=== PATIENT | male | born 1980 | race Hispanic/Latino ===

== ENCOUNTER 2016-08-05 23:05 | Observation (INO) | payer SELFPAY ==
[2016-08-06 00:28] LABS: BASO # 0.1 K/uL (0.0-0.2); BASO % 0.7 % (0.0-2.0); EOS # 0.2 K/uL (0.0-0.7); EOS % 2.8 % (0.0-4.0); HEMATOCRIT 42.4 % (35.0-51.0); LYMPH % 24.5 % (20.0-40.0); MEAN CELL VOLUME 85.5 fL (80.0-94.0); MEAN CORPUSCULAR HEMOGLOBIN 28.5 pg (27.0-31.0); MEAN CORPUSCULAR HGB CONC 33.3 g/dL (33.0-37.0); MEAN PLATELET VOLUME 9.1 fL (7.2-11.7); MONO # 0.8 K/uL (0.0-0.8); MONO % 9.7 % (0.0-10.0); WHITE BLOOD COUNT 8.2 K/uL (4.8-10.8)
[2016-08-06 00:38] LABS: CHLORIDE 103 mmol/L (98-107); SODIUM 139 mmol/L (132-148)
[2016-08-06 00:39] LABS: POTASSIUM 3.6 mmol/L (3.6-5.2)
[2016-08-06 00:41] LABS: ALKALINE PHOSPHATASE 69 U/L (38-126); AST/SGOT 30 U/L (17-59); BILIRUBIN,TOTAL 0.7 mg/dL (0.2-1.3); BLOOD UREA NITROGEN 11 mg/dL (9-20); CARBON DIOXIDE 25 mmol/L (22-30); GFR AFRICAN-AMERICAN > 60; TOTAL PROTEIN 7.5 g/dL (6.3-8.3)
[2016-08-06 00:42] LABS: ALCOHOL SERUM < 10 mg/dl (0-10); ALT/SGPT 42 U/L (21-72); CALCIUM 8.6 mg/dl (8.6-10.4); GLUCOSE,RANDOM 101 mg/dL (75-110)
[2016-08-06 00:44] LABS: URINE BILIRUBIN NEGATIVE (NEGATIVE); URINE BLOOD NEGATIVE (NEGATIVE); URINE COLOR Straw (YELLOW); URINE GLUCOSE (UA) NORMAL (Normal); URINE KETONE NEGATIVE (NEGATIVE); URINE LEUKOCYTE ESTERASE NEG Leu/uL (Negative); URINE PROTEIN NEGATIVE (NEGATIVE); URINE UROBILINOGEN NORMAL mg/dL (0.2-1.0); WBC URINE < 1 /hpf (0-5)
[2016-08-06] MEDS ORDERED: Sodium Chloride 0.9% 1,000 ML IV ONE ×2 (01:29→03:51)
[2016-08-06] MEDS ORDERED: Sodium Chloride 0.9% 1,000 ML ONE ×2 (03:02→04:13)
--- NOTE | 2016-08-06 04:35 | C.PDOC ---
History Of Present Illness Pt states the he was prescribed Seroquel and he fill the prescription today. He states he then took 9 pills "just to see how it feels like". Time Seen by Provider: 08/06/16 00:03 Chief Complaint (Nursing): Substance Abuse History Per: Patient Onset/Duration Of Symptoms: Hrs (3) Current Symptoms Are (Timing): Still Present Ingestion Of Substance: 9 pills of Seroquel 50mg. Modifying Factor(s): None Severity: Moderate Associated Symptoms: denies: Suicidal Thoughts, Suicidal Plan Additional History Per: Prior Records Past Medical History Reviewed: Historical Data, Nursing Documentation, Vital Signs Vital Signs: Last Vital Signs Temp 97.7 F 08/06/16 00:08 Pulse 68 08/06/16 04:50 Resp 18 08/06/16 04:50 BP 92/42 L 08/06/16 04:50 Pulse Ox 96 08/06/16 06:21 - Medical History PMH: Asthma Family History: States: Unknown Family Hx - Social History Hx Alcohol Use: Yes Hx Substance Use: Yes - Immunization History Hx Tetanus Toxoid Vaccination: No Hx Influenza Vaccination: No Hx Pneumococcal Vaccination: No Review Of Systems Except As Marked, All Systems Reviewed And Found Negative. Constitutional: Negative for: Fever Cardiovascular: Negative for: Chest Pain Respiratory: Negative for: Shortness of Breath Gastrointestinal: Negative for: Vomiting, Abdominal Pain Musculoskeletal: Negative for: Neck Pain Skin: Negative for: Rash Neurological: Negative for: Weakness, Numbness, Seizures Physical Exam - Physical Exam Appears: Non-toxic, Other (Appears drowsy) Skin: Normal Color, Warm, Dry, No Rash Head: Atraumatic, Normacephalic Eye(s): bilateral: PERRL, EOMI Neck: Normal ROM, Supple Cardiovascular: Rhythm Regular Respiratory: Normal Breath Sounds, No Accessory Muscle Use Gastrointestinal/Abdominal: Soft, No Tenderness Back: No CVA Tenderness Extremity: Normal ROM Neurological/Psych: Oriented x3, Normal Motor, Normal Sensation, Slow To Respond With Command ED Course And Treatment - Laboratory Results Result Diagrams: 08/06/16 00:25 08/06/16 00:25 Lab Interpretation: No Acute Changes ECG: Interpreted By Me, Viewed By Me ECG Rhythm: Sinus Rhythm ECG Interpretation: No Acute Changes Rate From EC O2 Sat by Pulse Oximetry: 96 Pulse Ox Interpretation: Normal Progress Note: Pt was d/w Belinda Rubio at [facility]. She recommended observing pt for 8 hours and supportive care. ED EKG Interpretation - Interpreted by ED Physician Interpreted by ED Physician: Yes - TIME Time: 06:13 - Type Type: 12 lead EKG Comparison: Similar to previous EKG - Rhythm Rhythm: Normal sinus - Rate BPM: 64 - Conduction Conduction: Normal conduction - Impression Impression:: Normal ED OBSERVATION Date of observation admission: 08/06/16 Time of observation admission: 00:30 - Observation admission statement Patient is being placed in observation because:: Seroquel overdose - Goals of Observation Goals of observation are:: Medical clearance Disposition Counseled Patient/Family Regarding: Studies Performed, Diagnosis - Disposition Disposition Time: 07:00 Condition: STABLE - Clinical Impression Clinical Impression: Medication overdose Physician Patient Turnover Patient Signed Over To: Nhi Lance Handoff 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
[2016-08-06 09:06] VITALS: O2SAT 98
[2016-08-06 10:29] VITALS: BP 112/69; PULSE 88; RESP 17; TEMP 98.5
== END 2016-08-06 10:14 | disposition home or self-care (01) ==
LOC: C.ER 23:05 → C.9OBSV 08-06 04:42
PROVIDERS: ADMIT Emergency Medicine; ATTEND Emergency Medicine
DX: T43.591A Poisoning by other antipsychotics and neuroleptics, accidental (unintentional), initial encounter (principal); J45.909 Unspecified asthma, uncomplicated; Y92.009 Unspecified place in unspecified non-institutional (private) residence as the place of occurrence of the external cause
CPT/HCPCS: 80053; 81001; 83735; 85025; 93005; 96360; 99285; G0378; G0480; J7040

== ENCOUNTER 2016-08-15 19:43 | Emergency (ER) | payer OTHER ==
[2016-08-15 21:12] VITALS: BP 103/66; PULSE 99; RESP 18; TEMP 98.2; O2SAT 96
[2016-08-15] MEDS ORDERED: Tetanus/Diphtheria Toxoids 0.5 ml Syringe IM ONE ×2 (22:00→22:03)
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
== END 2016-08-15 22:42 | disposition home or self-care (01) ==
LOC: C.ER 19:43
DX: S61.011A Laceration without foreign body of right thumb without damage to nail, initial encounter (principal); W45.8XXA Other foreign body or object entering through skin, initial encounter

== ENCOUNTER 2017-02-03 18:18 | Emergency (ER) | payer SELFPAY ==
[2017-02-03 18:37] VITALS: BP 119/86; PULSE 113; RESP 20; TEMP 98.7; O2SAT 96
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
== END 2017-02-03 21:29 | disposition home or self-care (01) ==
LOC: C.ER 18:18
DX: S02.2XXA Fracture of nasal bones, initial encounter for closed fracture (principal); H11.32 Conjunctival hemorrhage, left eye; Y04.0XXA Assault by unarmed brawl or fight, initial encounter

== ENCOUNTER 2017-05-05 19:08 | Emergency (ER) | payer SELFPAY ==
[2017-05-05 19:15] VITALS: BP 123/90; PULSE 110; RESP 16; TEMP 98.4; O2SAT 97
[2017-05-05 20:09] LABS: BASO # 0.1 K/uL (0.0-0.2); BASO % 0.8 % (0.0-2.0); EOS # 0.2 K/uL (0.0-0.7); EOS % 2.2 % (0.0-4.0); HEMATOCRIT 41.2 % (35.0-51.0); LYMPH # 1.5 K/uL (1.0-4.3); LYMPH % 18.5 % (20.0-40.0); MEAN CELL VOLUME 90.1 fL (80.0-94.0); MEAN CORPUSCULAR HEMOGLOBIN 30.6 pg (27.0-31.0); MEAN PLATELET VOLUME 8.8 fL (7.2-11.7); MONO % 12.8 % (0.0-10.0); NRBC % 0.1 % (0.0-2.0); RED CELL DISTRIBUTION WIDTH 13.7 % (11.5-14.5)
[2017-05-05 20:13] LABS: RBC URINE 2 /hpf (0-3); URINE BILIRUBIN NEGATIVE (NEGATIVE); URINE BLOOD NEGATIVE (NEGATIVE); URINE COLOR Amber (YELLOW); URINE GLUCOSE (UA) NORMAL (Normal); URINE KETONE TRACE mg/dL (NEGATIVE); URINE LEUKOCYTE ESTERASE 1+ Leu/uL (Negative); URINE PROTEIN 2+ mg/dL (NEGATIVE); WBC URINE 3 /hpf (0-5)
--- NOTE | 2017-05-05 20:21 | C.PDOC ---
History Of Present Illness Patient is a 36 y/o male, with a PMHx of alcoholism, who presents to the ED prescreened for alcohol detox. Patient admits to 5 beers per day and notes mild diffuse abdominal pain. Admits to decreased oral intake; denies vomiting, diarrhea, or bloody stool. No other physical complaints at this time. Time Seen by Provider: 05/05/17 19:21 Chief Complaint (Nursing): Substance Abuse History Per: Patient History/Exam Limitations: no limitations Current Symptoms Are (Timing): Still Present Modifying Factor(s): Alcohol Associated Symptoms: Other (mild diffuse abdominal pain) Recent travel outside of the [place]: No Past Medical History Reviewed: Historical Data, Nursing Documentation, Vital Signs Vital Signs: Last Vital Signs Temp 98.4 F 05/05/17 19:11 Pulse 110 H 05/05/17 19:11 Resp 16 05/05/17 19:11 BP 123/90 05/05/17 19:11 Pulse Ox 97 05/05/17 20:33 - Medical History PMH: Asthma, Bipolar Disorder, Schizophrenia, Seizures (ETOH related) Denies: Diabetes, Hepatitis, HIV, HTN, Chronic Kidney Disease, Sexually Transmitted Disease Surgical History: No Surg Hx Family History: States: Unknown Family Hx - Social History Hx Alcohol Use: Yes (5 beers per day ) Hx Substance Use: No - Immunization History Hx Tetanus Toxoid Vaccination: No Hx Influenza Vaccination: No Hx Pneumococcal Vaccination: No Review Of Systems Gastrointestinal: Positive for: Abdominal Pain (mild, diffuse). Negative for: Vomiting, Diarrhea, Hematochezia Physical Exam - Physical Exam Appears: Well, Non-toxic, No Acute Distress Skin: Normal Color, Warm, Dry Head: Atraumatic, Normacephalic Oral Mucosa: Moist Chest: Symmetrical Cardiovascular: Rhythm Regular, No Murmur Respiratory: Normal Breath Sounds, No Rales, No Rhonchi, No Wheezing Gastrointestinal/Abdominal: Soft, No Tenderness, Other (mild diffuse abdominal pain to palpation) Neurological/Psych: Oriented x3, Normal Speech, Normal Cognition ED Course And Treatment - Laboratory Results Result Diagrams: 05/05/17 20:04 05/05/17 20:04 O2 Sat by Pulse Oximetry: 97 (room air) Pulse Ox Interpretation: Normal Progress Note: Blood work ordered. Disposition - Disposition Disposition: ELOPEMENT - ER ONLY Disposition Time: 20:55 Condition: STABLE Forms: [employer] (Belgian) - Clinical Impression Clinical Impression: Substance abuse, Alcohol abuse - Scribe Statement The provider has reviewed the documentation as recorded by the Scribe Zakiya Madison All medical record entries made by the Scribe were at my direction and personally dictated by me. I have reviewed the chart and agree that the record accurately reflects my personal performance of the history, physical exam, medical decision making, and the department course for this patient. I have also personally directed, reviewed, and agree with the discharge instructions and disposition.
[2017-05-05 20:23] LABS: ALB/GLOB RATIO 1.3 (1.0-2.1); ALKALINE PHOSPHATASE 152 U/L (38-126); ALT/SGPT 288 U/L (21-72); AST/SGOT 414 U/L (17-59); BILIRUBIN,TOTAL 0.8 mg/dL (0.2-1.3); BLOOD UREA NITROGEN 12 mg/dL (9-20); CARBON DIOXIDE 22 mmol/L (22-30); CHLORIDE 104 mmol/L (98-107); GFR AFRICAN-AMERICAN > 60; GLUCOSE,RANDOM 91 mg/dL (75-110); POTASSIUM 3.5 mmol/L (3.6-5.2); SODIUM 139 mmol/L (132-148); TOTAL PROTEIN 7.1 g/dL (6.3-8.3)
[2017-05-05 20:45] LABS: ALCOHOL SERUM 382 mg/dl (0-10)
== END 2017-05-05 21:03 | disposition left against medical advice (07) ==
LOC: C.ER 19:08
DX: F10.10 Alcohol abuse, uncomplicated (principal); F19.10 Other psychoactive substance abuse, uncomplicated
CPT/HCPCS: 80053; 81001; 85025; 99283; G0480

== ENCOUNTER 2017-05-10 12:45 | Emergency (ER) | payer SELFPAY ==
[2017-05-10 12:48] VITALS: BMI 28.3
[2017-05-10 12:49] VITALS: PULSE 84; RESP 18; TEMP 98.6
[2017-05-10] MEDS ORDERED: Bacitracin 500 Units/gm Oint Foilpak UD TOP ONE (13:45)
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
[2017-05-10] MEDS ORDERED: Bacitracin 500 Units/gm Oint Foilpak UD ONE (13:54)
[2017-05-10 14:03] VITALS: BP 126/92
[2017-05-10 15:31] VITALS: O2SAT 96
== END 2017-05-10 14:03 | disposition home or self-care (01) ==
LOC: C.ER 12:45
DX: S00.81XA Abrasion of other part of head, initial encounter (principal); Y04.0XXA Assault by unarmed brawl or fight, initial encounter; Z23 Encounter for immunization

== ENCOUNTER 2017-05-22 18:56 | Inpatient (IN) | payer MEDICAID, OTHER ==
[2017-05-22 18:57] VITALS: BMI 28.3
[2017-05-22] MEDS ORDERED: Sodium Chloride 0.9% 1,000 ML IV ONE ×2 (19:48→21:36)
[2017-05-22 20:27] LABS: BASO % 0.2 % (0.0-2.0); EOS % 0.1 % (0.0-4.0); LYMPH # 0.2 K/uL (1.0-4.3); LYMPH % 1.5 % (20.0-40.0); MEAN CELL VOLUME 89.5 fL (80.0-94.0); MEAN CORPUSCULAR HEMOGLOBIN 30.6 pg (27.0-31.0); MEAN CORPUSCULAR HGB CONC 34.2 g/dL (33.0-37.0); MEAN PLATELET VOLUME 9.3 fL (7.2-11.7); MONO # 0.6 K/uL (0.0-0.8); MONO % 5.6 % (0.0-10.0); NEUT # 10.2 K/uL (1.8-7.0); NEUT % 92.6 % (50.0-75.0); NRBC % 0.1 % (0.0-2.0); RED CELL DISTRIBUTION WIDTH 14.1 % (11.5-14.5)
[2017-05-22 20:36] LABS: HEMOGLOBIN 16.2 g/dL (12.0-18.0)
[2017-05-22] MEDS ORDERED: Morphine 4 MG/ML VIAL ONE (20:36)
[2017-05-22 20:37] LABS: PLATELET COUNT 92 K/uL (130-400)
[2017-05-22 20:42] LABS: SQUAMOUS EPITHIAL 1 /hpf (0-5); URINE BACTERIA OCC (<OCC); URINE BILIRUBIN 2+ (NEGATIVE); URINE BLOOD NEGATIVE (NEGATIVE); URINE CLARITY Clear (Clear); URINE COLOR Amber (YELLOW); URINE GLUCOSE (UA) NORMAL (Normal); URINE LEUKOCYTE ESTERASE TRACE Leu/uL (Negative); URINE NITRATE NEGATIVE (NEGATIVE); URINE PROTEIN 3+ mg/dL (NEGATIVE)
[2017-05-22 20:45] LABS: BARBITURATES, UR NEGATIVE (NEGATIVE); BENZODIAZEPINES, UR NEGATIVE (NEGATIVE); OPIATES, UR NEGATIVE (NEGATIVE); PHENCYCLIDINE, UR NEGATIVE (NEGATIVE)
[2017-05-22 20:48] LABS: EOSINOPHIL 1 % (0-4); LYMPHOCYTE 1 % (20-40); MONOCYTE 2 % (0-10); NEUTROPHIL 96 % (50-75); PLATELET ESTIMATE DECREASED (NORMAL); TOTAL CELLS COUNTED 100
[2017-05-22 20:55] LABS: ALB/GLOB RATIO 0.9 (1.0-2.1); ALBUMIN 4.3 g/dL (3.5-5.0); ALT/SGPT 178 U/L (21-72); AST/SGOT 202 U/L (17-59); BLOOD UREA NITROGEN 13 mg/dL (9-20); CALCIUM 8.8 mg/dl (8.6-10.4); GFR AFRICAN-AMERICAN > 60; GFR NON-AFRICAN AMERICAN > 60; LIPASE 193 U/L (23-300)
--- NOTE | 2017-05-22 21:06 | C.PDOC ---
History Of Present Illness Patient is a 36 y/o male, with a Hx of Cystic Fibrosis, who presents to the ED with a complaint of constant, worsening abdominal pain associated with nausea and bilious vomiting since earlier today. Patient reports vomiting 20 times today. He reports a feeling a loss of appetite, and multiple bowel movements of loose stool. Patient reports he is a heavy drinker -at minimum a pint of vodkha daily. Last drink being yesterday. Denies any surgeries, medications, allergies , tobacco or drug use. No other physical complaints at this time. Time Seen by Provider: 05/22/17 19:19 Chief Complaint (Nursing): Abdominal Pain History Per: Patient History/Exam Limitations: no limitations Onset/Duration Of Symptoms: Hrs (earlier today), Persistent, Worse Since Current Symptoms Are (Timing): Still Present Location Of Pain/Discomfort: Diffuse Associated Symptoms: Nausea, Vomiting (bilious, 50x), Diarrhea, Loss Of Appetite Last Bowel Movement: Today (mutiple) Recent travel outside of the [place]: No Past Medical History Reviewed: Historical Data, Nursing Documentation, Vital Signs Vital Signs: Last Vital Signs Temp 100 F H 05/22/17 21:00 Pulse 104 H 05/23/17 01:57 Resp 20 05/23/17 01:57 BP 117/69 05/23/17 01:57 Pulse Ox 97 05/23/17 01:57 - Medical History PMH: Asthma, Bipolar Disorder, Schizophrenia, Seizures (ETOH related) Denies: Diabetes, Hepatitis, HIV, HTN, Chronic Kidney Disease, Sexually Transmitted Disease Other PMH: CF Surgical History: No Surg Hx Family History: States: Unknown Family Hx - Social History Hx Tobacco Use: No Hx Alcohol Use: Yes (5 beers per day ) Hx Substance Use: No (FORMER HEROIN USER) - Immunization History Hx Tetanus Toxoid Vaccination: Yes Hx Influenza Vaccination: No Hx Pneumococcal Vaccination: No Review Of Systems Constitutional: Negative for: Fever, Chills Eyes: Negative for: Pain ENT: Negative for: Ear Pain, Nose Congestion, Mouth Pain Cardiovascular: Negative for: Chest Pain, Palpitations, Orthopnea, Paroxysmal Noc. Dyspnea, Edema Gastrointestinal: Positive for: Nausea, Vomiting, Abdominal Pain, Diarrhea. Negative for: Constipation Genitourinary: Negative for: Dysuria Musculoskeletal: Negative for: Neck Pain Neurological: Negative for: Weakness Psych: Negative for: Anxiety Physical Exam - Physical Exam Appears: Non-toxic, In Acute Distress (moderate), Other (cold, clammy) Skin: Normal Color, Warm, Dry Head: Atraumatic, Normacephalic Eye(s): bilateral: Normal Inspection Ear(s): Bilateral: Normal Oral Mucosa: Moist Tongue: Normal Appearing, Other (fasiculations) Lips: Normal Appearing Teeth: Normal Dentition Neck: Normal Chest: Symmetrical Cardiovascular: Rhythm Regular, No Murmur Respiratory: Normal Breath Sounds, No Rales, No Rhonchi, No Wheezing Gastrointestinal/Abdominal: Soft, No Tenderness Back: Normal Inspection Extremity: Other (bilateral hand tremors consitent with alcohol withdrawal) Extremity: Bilateral: Atraumatic Neurological/Psych: Oriented x3 ED Course And Treatment - Laboratory Results Result Diagrams: 05/22/17 20:22 05/22/17 20:22 ECG: Interpreted By Me, Viewed By Me ECG Rhythm: Sinus Tachycardia Interpretation Of ECG: IN 116. QRS 72. QT 324. QTC 469. no ischemic changes Rate From EC (bpm) O2 Sat by Pulse Oximetry: 100 - Radiology CXR: Interpreted by Me, Viewed By Me CXR Interpretation: Yes: No Acute Disease - CT Scan/US A/P Other Rad Studies (CT/US): Interpreted By Me, Read By Radiologist CT/US Interpretation: CT Scan. . . ABD PELVIS IV CONTRAST ONLY Exam Date: 05/22/17. . This imaging exam was performed at [facility] EXAM: CT Abdomen and Pelvis With Intravenous Contrast. . EXAM DATE/TIME: 05/22/2017 10:02 PM. . CLINICAL HISTORY: 36 years old, male; Pain; Abdominal pain; Localized; Left lower quadrant. (llq); Additional info: Abd pain. . TECHNIQUE: Axial computed tomography images of the abdomen and pelvis with intravenous. contrast. All CT scans at this facility use one or more dose reduction. techniques, viz.: automated exposure control; ma/kV adjustment per patient size. (including targeted exams where dose is matched to indication; i.e. head); or. iterative reconstruction technique. Coronal and sagittal reformatted images were created and reviewed. . CONTRAST: 100 mL of omnipaque 300 administered intravenously. . COMPARISON: CT - ABD PELVIS IV CONTRAST ONLY 2015-12-02 23:51. . FINDINGS: Lower thorax: Heart size is normal. Lung bases are clear. There is mild/early. paraseptal emphysema , unchanged. There is a small hiatal hernia. . ABDOMEN: Liver: The liver is enlarged with diffuse fatty infiltration.. Gallbladder and bile ducts: unremarkable. Pancreas: unremarkable. Spleen: Spleen is mildly enlarged. Adrenals: unremarkable. Kidneys and ureters: unremarkable. Stomach and bowel : Stomach is partially distended. Rotation is normal. Duodenum and proximal jejunum are mildly dilated with fluid. There are. scattered areas of small bowel wall thickening. There is air and fluid. throughout the small bowel. There is mild terminal ileal wall thickening. Appendix is unremarkable. Colon is incompletely distended which limits. evaluation. There is distal transverse, descending and sigmoid colon wall. thickening. Appendix: See stomach and bowel. . PELVIS: Bladder: unremarkable. Reproductive: Seminal vesicles and prostate are unremarkable. . ABDOMEN and PELVIS: Intraperitoneal space: There is no free air or free fluid. Bones/joints: There are no acute osseous abnormalities. There are Schmorl's. nodes at multiple levels. Soft tissues: There is a small fat containing umbilical hernia. Vasculature: Vascular structures are unremarkable. Lymph nodes: There is shotty adenopathy. . IMPRESSION: Enterocolitis; hepatosplenomegaly with fatty infiltration of the. liver. . . Additional findings as described above. Progress Note: Labs, EKG, CXR, and abdomen XR ordered. GI cocktail, antiemetics , aggressive fluid hydration, and valium 10mg PO for alcohol withdrawal adminsitered. 9:36 pm additional valium 5 mg po and librium 50 mg po ordered as well as another liter of fluid administered. continuous motorcycle deliverer and pulse ox. repeated evaluations. Ct a/p ordered- no acute findings. lipase not elevated. 10:05 pm third dose valium and additional liter of fluid administered. Critical Care Time - Critical Care Note Total Time (in mins): 30 Documented critical care: time excludes all time spent performing seperately billable procedures. Medical Decision Making Medical Decision Making: Lab results: white count 11 Disposition Counseled Patient/Family Regarding: Diagnosis - Disposition Disposition Time: 05:21 Condition: SERIOUS - Clinical Impression Clinical Impression: Vomiting, Nausea, Alcohol abuse, Abdominal pain, Nausea & vomiting - Scribe Statement The provider has reviewed the documentation as recorded by the Scribe Zakiya Madison All medical record entries made by the Scribe were at my direction and personally dictated by me. I have reviewed the chart and agree that the record accurately reflects my personal performance of the history, physical exam, medical decision making, and the department course for this patient. I have also personally directed, reviewed, and agree with the discharge instructions and disposition.
[2017-05-22] MEDS ORDERED: Sodium Chloride 0.9% 1,000 ML ONE (21:53)
[2017-05-22] MEDS ORDERED: Iohexol 300 100 ML IJ ONE (22:15)
--- NOTE | 2017-05-22 23:10 | CT ---
EXAM: CT Abdomen and Pelvis With Intravenous Contrast EXAM DATE/TIME: 05/22/2017 10:02 PM CLINICAL HISTORY: 36 years old, male; Pain; Abdominal pain; Localized; Left lower quadrant (llq); Additional info: Abd pain TECHNIQUE: Axial computed tomography images of the abdomen and pelvis with intravenous contrast. All CT scans at this facility use one or more dose reduction techniques, viz.: automated exposure control; ma/kV adjustment per patient size (including targeted exams where dose is matched to indication; i.e. head); or iterative reconstruction technique. Coronal and sagittal reformatted images were created and reviewed. CONTRAST: 100 mL of omnipaque 300 administered intravenously. COMPARISON: CT - ABD PELVIS IV CONTRAST ONLY 2015-12-02 23:51 FINDINGS: Lower thorax: Heart size is normal. Lung bases are clear. There is mild/early paraseptal emphysema, unchanged. There is a small hiatal hernia. ABDOMEN: Liver: The liver is enlarged with diffuse fatty infiltration.. Gallbladder and bile ducts: unremarkable Pancreas: unremarkable Spleen: Spleen is mildly enlarged. Adrenals: unremarkable Kidneys and ureters: unremarkable Stomach and bowel: Stomach is partially distended. Rotation is normal. Duodenum and proximal jejunum are mildly dilated with fluid. There are scattered areas of small bowel wall thickening. There is air and fluid throughout the small bowel. There is mild terminal ileal wall thickening. Appendix is unremarkable. Colon is incompletely distended which limits evaluation. There is distal transverse, descending and sigmoid colon wall thickening. Appendix: See stomach and bowel PELVIS: Bladder: unremarkable Reproductive: Seminal vesicles and prostate are unremarkable. ABDOMEN and PELVIS: Intraperitoneal space: There is no free air or free fluid. Bones/joints: There are no acute osseous abnormalities. There are Schmorl's nodes at multiple levels. Soft tissues: There is a small fat containing umbilical hernia. Vasculature: Vascular structures are unremarkable. Lymph nodes: There is shotty adenopathy. IMPRESSION: Enterocolitis; hepatosplenomegaly with fatty infiltration of the liver Additional findings as described above.
--- NOTE | 2017-05-23 00:12 | CP.PCM.HP ---
<Storm Trevino - Last Filed: 05/23/17 06:05> History of Present Illness - History of Present Illness History of Present Illness: PGY-1 H&P for Dr. Soria CC: abdominal pain This is a 36 year old male with PMHx cystic fibrosis, alcohol abuse who presents to the ED complaining of severe abdominal pain. Patient states that it was a sudden onset squeezing pain that began as soon as he woke up on Monday morning. Patient states that the pain is localized epigastric and bilateral lower quadrants with radiations to the flanks bilaterally. Patient denies exacerbating or relieving factors. Patient admits associated multiple bouts of vomiting and diarrhea. Vomitus is bilious and non-bloody. Diarrhea is yellow and white but non-bloody. Patient's current presentation is complicated by the fact that he is a chronic alcoholic, and his last drink was on Monday. Patient states that his cystic fibrosis manifests itself in occasional sputum production but states that he is largely asymptomatic. PMHx: Cystic fibrosis, alcohol abuse, tobacco abuse, previous Hepatitis C infection PSHx: Denies Allergies: NKDA Social: Drinks "at least 20 pints of vodka" or "5-6 of the big bottles" daily. Has been drinking since 2007. Smokes 2-3 ppd for 29 years. Former heroin user. PMD: denies Home meds: denies Present on Admission - Present on Admission Any Indicators Present on Admission: No Review of Systems - Constitutional Constitutional: Malaise. absent: Chills, Fever - EENT Eyes: absent: Change in Vision Ears: absent: Decreased Hearing Nose/Mouth/Throat: absent: Nasal Congestion - Cardiovascular Cardiovascular: absent: Chest Pain - Respiratory Respiratory: absent: Cough, Dyspnea - Gastrointestinal Gastrointestinal: Abdominal Pain, Diarrhea, Nausea, Vomiting. absent: Bloating , Constipation, Hematemesis, Hematochezia - Genitourinary Genitourinary: absent: Dysuria - Musculoskeletal Musculoskeletal: Other (flank pain) - Integumentary Integumentary: absent: Rash - Neurological Neurological: Tremor - Psychiatric Psychiatric: Anxiety, Change in Appetite - Endocrine Endocrine: absent: Fatigue, Palpitations Past Patient History - Past Social History Smoking Status: Heavy Smoker > 10 Cigarettes Daily - CARDIAC Hx Hypertension: No - PULMONARY Hx Asthma: Yes - NEUROLOGICAL Hx Seizures: Yes (ETOH related) - HEENT Hx HEENT Problems: No - RENAL Hx Chronic Kidney Disease: No - ENDOCRINE/METABOLIC Hx Endocrine Disorders: No - HEMATOLOGICAL/ONCOLOGICAL Hx Human Immunodeficiency Virus (HIV): No - INTEGUMENTARY Hx Dermatological Problems: No - MUSCULOSKELETAL/RHEUMATOLOGICAL Hx Musculoskeletal Disorders: No - GASTROINTESTINAL Hx Gastrointestinal Disorders: No - GENITOURINARY/GYNECOLOGICAL Hx Sexually Transmitted Disorders: No - PSYCHIATRIC Hx Bipolar Disorder: Yes Hx Schizophrenia: Yes Hx Substance Use: No (FORMER HEROIN USER) - SURGICAL HISTORY Hx Surgeries: No - ANESTHESIA Hx Anesthesia: No Meds Allergies/Adverse Reactions: Allergies Allergy/AdvReac Type Severity Reaction Status Date / Time No Known Allergies Allergy Verified 05/22/17 19:25 Physical Exam - Constitutional Appears: In Acute Distress (mild distress) - Head Exam Head Exam: NORMOCEPHALIC. absent: ATRAUMATIC (healing lesion on left side of forehead) - Eye Exam Eye Exam: EOMI, PERRL - ENT Exam ENT Exam: Mucous Membranes Dry - Respiratory Exam Respiratory Exam: absent: Rales, Rhonchi, Wheezes Additional comments: Coarse breath sounds bilaterally - Cardiovascular Exam Cardiovascular Exam: Tachycardia, +S1, +S2 - GI/Abdominal Exam GI & Abdominal Exam: Guarding, Hyperactive Bowel Sounds, Soft, Tenderness. absent: Distended - Extremities Exam Extremities exam: Positive for: pedal pulses present. Negative for: pedal edema , tenderness Additional comments: Digital clubbing on both hands. - Back Exam Back exam: CVA tenderness (L) (worse than right), CVA tenderness (R) - Neurological Exam Neurological exam: Alert, CN II-XII Intact, Oriented x3 - Psychiatric Exam Psychiatric exam: Anxious - Skin Skin Exam: Dry, Warm Results - Vital Signs Recent Vital Signs: Last Vital Signs Temp 100 F H 05/22/17 21:00 Pulse 110 H 05/22/17 22:49 Resp 18 05/22/17 22:49 BP 116/81 05/22/17 22:49 Pulse Ox 100 05/22/17 23:16 - Labs Result Diagrams: 05/22/17 20:22 05/22/17 20:22 Labs: Laboratory Results - last 24 hr 05/22/17 05/22/17 05/22/17 20:22 20:22 20:22 WBC 11.0 H RBC 5.30 Hgb 16.2 D Hct 47.4 MCV 89.5 MCH 30.6 MCHC 34.2 RDW 14.1 Plt Count 92 L D MPV 9.3 Neut % (Auto) 92.6 H Lymph % (Auto) 1.5 L [place] % (Auto) 5.6 Eos % (Auto) 0.1 Baso % (Auto) 0.2 Neut # 10.2 H Lymph # 0.2 L [place] # 0.6 Eos # 0.0 Baso # 0.0 Neutrophils % (Manual) 96 H Lymphocytes % (Manual) 1 L Monocytes % (Manual) 2 Eosinophils % (Manual) 1 Platelet Estimate Decreased L RBC Morphology Normal Sodium 132 Potassium 4.3 Chloride 97 L Carbon Dioxide 22 Anion Gap 18 BUN 13 Creatinine 0.8 Est GFR ( Amer) > 60 Est GFR (Non-Af Amer) > 60 Random Glucose 140 H Calcium 8.8 Total Bilirubin 1.7 H AST 202 H D ALT 178 H D Alkaline Phosphatase 195 H D Troponin I < 0.0120 Total Protein 8.8 H Albumin 4.3 Globulin 4.5 H Albumin/Globulin Ratio 0.9 L Lipase 193 Urine Color Cailin Urine Clarity Clear Urine pH 6.0 Ur Specific [place] 1.032 H Urine Protein 3+ H Urine Glucose (UA) Normal Urine Ketones 1+ H Urine Blood Negative Urine Nitrate Negative Urine Bilirubin 2+ H Urine Urobilinogen 4.0 Ur Leukocyte Esterase Trace Urine WBC (Auto) 3 Urine RBC (Auto) 4 H Ur Squamous Epith Cells 1 Urine Bacteria Occ H Urine Opiates Screen Urine Methadone Screen Ur Barbiturates Screen Ur Phencyclidine Scrn Ur Amphetamines Screen U Benzodiazepines Scrn U Oth Cocaine Metabols U Cannabinoids Screen Alcohol, Quantitative < 10 05/22/17 20:22 WBC RBC Hgb Hct MCV MCH MCHC RDW Plt Count MPV Neut % (Auto) Lymph % (Auto) [place] % (Auto) Eos % (Auto) Baso % (Auto) Neut # Lymph # [place] # Eos # Baso # Neutrophils % (Manual) Lymphocytes % (Manual) Monocytes % (Manual) Eosinophils % (Manual) Platelet Estimate RBC Morphology Sodium Potassium Chloride Carbon Dioxide Anion Gap BUN Creatinine Est GFR ( Amer) Est GFR (Non-Af Amer) Random Glucose Calcium Total Bilirubin AST ALT Alkaline Phosphatase Troponin I Total Protein Albumin Globulin Albumin/Globulin Ratio Lipase Urine Color Urine Clarity Urine pH Ur Specific [place] Urine Protein Urine Glucose (UA) Urine Ketones Urine Blood Urine Nitrate Urine Bilirubin Urine Urobilinogen Ur Leukocyte Esterase Urine WBC (Auto) Urine RBC (Auto) Ur Squamous Epith Cells Urine Bacteria Urine Opiates Screen Negative Urine Methadone Screen Negative Ur Barbiturates Screen Negative Ur Phencyclidine Scrn Negative Ur Amphetamines Screen Negative U Benzodiazepines Scrn Negative U Oth Cocaine Metabols Negative U Cannabinoids Screen Negative Alcohol, Quantitative Assessment & Plan - Assessment and Plan (Free Text) Plan: Enterocolitis CT abdomen/pelvis w. IV contrast: * Duodenum and proximal jejunum are mildly dilated with fluid. * There are scattered areas of small bowel wall thickening. * There is air and fluid throughout the small bowel. * There is mild terminal ileal wall thickening. * There is distal transverse, descending and sigmoid colon wall thickening. * The liver is enlarged with diffuse fatty infiltration. * Spleen is mildly enlarged. * Stomach is partially distended. NPO for now LR 125 cc/hr Zofran 4 mg IV Q6H prn Alcohol Withdrawal Monitor closely CIWA protocol Ativan 2 mg IV Q6H DAFNE Ativan 2 mg IV Q2H prn IV folic acid and IV thiamine daily Tobacco abuse Nicotine patch daily Prophylactic Measure SCDs for now Protonix 40 mg IV daily NPO Case DW Dr. Yang Trevino PGY-1 <True Soria P - Last Filed: 05/23/17 06:58> Results - Vital Signs Recent Vital Signs: Last Vital Signs Temp 100 F H 05/22/17 21:00 Pulse 101 H 05/23/17 04:58 Resp 28 H 05/23/17 04:58 BP 120/76 05/23/17 04:58 Pulse Ox 100 05/23/17 05:21 - Labs Result Diagrams: 05/23/17 05:26 05/23/17 05:26 Labs: Laboratory Results - last 24 hr 05/22/17 05/22/17 05/22/17 20:22 20:22 20:22 WBC 11.0 H RBC 5.30 Hgb 16.2 D Hct 47.4 MCV 89.5 MCH 30.6 MCHC 34.2 RDW 14.1 Plt Count 92 L D MPV 9.3 Neut % (Auto) 92.6 H Lymph % (Auto) 1.5 L [place] % (Auto) 5.6 Eos % (Auto) 0.1 Baso % (Auto) 0.2 Neut # 10.2 H Lymph # 0.2 L [place] # 0.6 Eos # 0.0 Baso # 0.0 Neutrophils % (Manual) 96 H Lymphocytes % (Manual) 1 L Monocytes % (Manual) 2 Eosinophils % (Manual) 1 Platelet Estimate Decreased L RBC Morphology Normal Sodium 132 Potassium 4.3 Chloride 97 L Carbon Dioxide 22 Anion Gap 18 BUN 13 Creatinine 0.8 Est GFR ( Amer) > 60 Est GFR (Non-Af Amer) > 60 Random Glucose 140 H Calcium 8.8 Magnesium Total Bilirubin 1.7 H AST 202 H D ALT 178 H D Alkaline Phosphatase 195 H D Troponin I < 0.0120 Total Protein 8.8 H Albumin 4.3 Globulin 4.5 H Albumin/Globulin Ratio 0.9 L Lipase 193 Urine Color Cailin Urine Clarity Clear Urine pH 6.0 Ur Specific [place] 1.032 H Urine Protein 3+ H Urine Glucose (UA) Normal Urine Ketones 1+ H Urine Blood Negative Urine Nitrate Negative Urine Bilirubin 2+ H Urine Urobilinogen 4.0 Ur Leukocyte Esterase Trace Urine WBC (Auto) 3 Urine RBC (Auto) 4 H Ur Squamous Epith Cells 1 Urine Bacteria Occ H Urine Opiates Screen Urine Methadone Screen Ur Barbiturates Screen Ur Phencyclidine Scrn Ur Amphetamines Screen U Benzodiazepines Scrn U Oth Cocaine Metabols U Cannabinoids Screen Alcohol, Quantitative < 10 05/22/17 05/23/17 05/23/17 20:22 05:26 05:26 WBC 4.5 L D RBC 4.25 L Hgb 12.9 D Hct 38.0 MCV 89.6 MCH 30.3 MCHC 33.9 RDW 13.9 Plt Count 51 L D MPV 8.6 Neut % (Auto) 80.8 H Lymph % (Auto) 10.6 L [place] % (Auto) 7.9 Eos % (Auto) 0.4 Baso % (Auto) 0.3 Neut # 3.6 Lymph # 0.5 L [place] # 0.4 Eos # 0.0 Baso # 0.0 Neutrophils % (Manual) Lymphocytes % (Manual) Monocytes % (Manual) Eosinophils % (Manual) Platelet Estimate RBC Morphology Sodium 128 L Potassium 3.6 Chloride 97 L Carbon Dioxide 25 Anion Gap 10 BUN 11 Creatinine 0.7 L Est GFR ( Amer) > 60 Est GFR (Non-Af Amer) > 60 Random Glucose 76 Calcium 7.2 L Magnesium 0.9 L* D Total Bilirubin 1.0 AST 114 H D ALT 113 H D Alkaline Phosphatase 113 Troponin I Total Protein 6.7 Albumin 3.4 L D Globulin 3.3 Albumin/Globulin Ratio 1.0 Lipase Urine Color Urine Clarity Urine pH Ur Specific [place] Urine Protein Urine Glucose (UA) Urine Ketones Urine Blood Urine Nitrate Urine Bilirubin Urine Urobilinogen Ur Leukocyte Esterase Urine WBC (Auto) Urine RBC (Auto) Ur Squamous Epith Cells Urine Bacteria Urine Opiates Screen Negative Urine Methadone Screen Negative Ur Barbiturates Screen Negative Ur Phencyclidine Scrn Negative Ur Amphetamines Screen Negative U Benzodiazepines Scrn Negative U Oth Cocaine Metabols Negative U Cannabinoids Screen Negative Alcohol, Quantitative Attending/Attestation - Attestation I have personally seen and examined this patient.: Yes I have fully participated in the care of the patient.: Yes I have reviewed all pertinent clinical information: Yes Notes (Text): 05/23/17 06:49 Entrocolitis with nausea, vomiting and diarrhea Alcoholism consuming about 8-10 pints of vodka, but unable to keep due to above , hence in withdrawal h/o hepc, 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
[2017-05-23] MEDS ORDERED: Thiamine 100 mg/ml Inj IV ONE ×2 (00:50→01:21)
[2017-05-23] MEDS ORDERED: Lactated Ringer's 1,000 ML ONE (01:56)
[2017-05-23] MEDS: Lactated Ringer's 1,000 ML IV SCH ×3 (01:58→17:30)
[2017-05-23 05:33] LABS: BASO % 0.3 % (0.0-2.0); EOS % 0.4 % (0.0-4.0); HEMOGLOBIN 12.9 g/dL (12.0-18.0); LYMPH # 0.5 K/uL (1.0-4.3); LYMPH % 10.6 % (20.0-40.0); MEAN CELL VOLUME 89.6 fL (80.0-94.0); MEAN CORPUSCULAR HEMOGLOBIN 30.3 pg (27.0-31.0); MEAN CORPUSCULAR HGB CONC 33.9 g/dL (33.0-37.0); MEAN PLATELET VOLUME 8.6 fL (7.2-11.7); MONO # 0.4 K/uL (0.0-0.8); MONO % 7.9 % (0.0-10.0); NEUT # 3.6 K/uL (1.8-7.0); NEUT % 80.8 % (50.0-75.0); NRBC % 0.1 % (0.0-2.0); RBC 4.25 Mil/uL (4.40-5.90); RED CELL DISTRIBUTION WIDTH 13.9 % (11.5-14.5); WHITE BLOOD COUNT 4.5 K/uL (4.8-10.8)
[2017-05-23 06:00] LABS: MAGNESIUM 0.9 mg/dL (1.6-2.3)
[2017-05-23 06:01] LABS: ALBUMIN 3.4 g/dL (3.5-5.0); ALT/SGPT 113 U/L (21-72); AST/SGOT 114 U/L (17-59); BLOOD UREA NITROGEN 11 mg/dL (9-20); CALCIUM 7.2 mg/dl (8.6-10.4); GFR AFRICAN-AMERICAN > 60; GFR NON-AFRICAN AMERICAN > 60
[2017-05-23] MEDS: Magnesium Sulfate 1 gm in D5W 1 GM/100 ML BAG IVPB SCH ×3 (06:14→08:30)
[2017-05-23] MEDS ORDERED: Magnesium Sulfate 1 gm in D5W 1 GM/100 ML BAG IVPB ONE (07:07)
--- NOTE | 2017-05-23 07:25 | CP.PCM.PN ---
Addendum entered and electronically signed by Julia Taylor 05/23/17 18:03 : Hypomagnesemia .9mg, given 3gm magnesium, repeat 1.8 monitor Original Note: <Julia Taylor - Last Filed: 05/23/17 17:55> Subjective - Date & Time of Evaluation Date of Evaluation: 05/23/17 Time of Evaluation: 07:00 - Subjective Subjective: PGY1-Medicine Note-Dr. Ashford's Service Patient seen and examined at bedside. Patient not cooperative with my questions. Patient says he is very tired. Patient says he has a lot of diffuse abdominal pain still. Patient has not had any vomiting or diarrhea this morning. Otherwise patient denies other complaints. Objective - Vital Signs/Intake and Output Vital Signs (last 24 hours): Temp Pulse Resp BP Pulse Ox 100 F H 95 H 22 109/78 96 05/22/17 21:00 05/23/17 07:11 05/23/17 07:11 05/23/17 07:11 05/23/17 07:11 - Medications Medications: Current Medications Folic Acid 1 mg/ Sodium (Chloride) 100.2 mls @ 60 mls/hr IV DAILY [facility] Lactated Ringer's (Lactated Ringer's) 1,000 mls @ 125 mls/hr IV .Q8H [facility] Last Admin: 05/23/17 01:58 Dose: 125 mls/hr Magnesium Sulfate/Dextrose (Magnesium Sulfate 1 Gm/100 Ml D5w) 1 gm in 100 mls @ 300 mls/hr IVPB Q30M [facility] Stop: 05/23/17 07:34 Last Admin: 05/23/17 07:10 Dose: 300 mls/hr Lorazepam (Ativan) 2 mg IVP Q6H [facility] Last Admin: 05/23/17 07:10 Dose: 2 mg Lorazepam (Ativan) 2 mg IVP Q2H PRN PRN Reason: Symptoms of alcohol withdrawl Nicotine (Nicoderm Cq) 1 patch TD DAILY [facility] Ondansetron HCl (Zofran Inj) 4 mg IVP Q6H PRN PRN Reason: Nausea/Vomiting Pantoprazole Sodium (Protonix Inj) 40 mg IVP DAILY [facility] Thiamine HCl (Vitamin B1 Inj) 100 mg IV DAILY [facility] - Labs Labs: 05/23/17 05:26 05/23/17 05:26 - Constitutional Appears: Non-toxic - Head Exam Head Exam: ATRAUMATIC, NORMAL INSPECTION, NORMOCEPHALIC - Eye Exam Eye Exam: EOMI, Normal appearance - Respiratory Exam Respiratory Exam: Clear to Ausculation Bilateral, NORMAL BREATHING PATTERN. absent: Rales, Rhonchi, Wheezes, Respiratory Distress, Stridor - Cardiovascular Exam Cardiovascular Exam: REGULAR RHYTHM, +S1, +S2 - GI/Abdominal Exam GI & Abdominal Exam: Distended, Firm, Guarding, Tenderness, Hyperactive Bowel Sounds - Extremities Exam Extremities Exam: Normal Inspection. absent: Pedal Edema - Neurological Exam Neurological Exam: Alert, Awake, Oriented x3 - Psychiatric Exam Psychiatric exam: Agitated - Skin Skin Exam: Intact, Normal Color, Warm Assessment and Plan - Assessment and Plan (Free Text) Assessment: Enterocolitis CT abdomen/pelvis w. IV contrast: * Duodenum and proximal jejunum are mildly dilated with fluid. There are scattered areas of small bowel wall thickening. There is air and fluid throughout the small bowel. There is mild terminal ileal wall thickening. There is distal transverse, descending and sigmoid colon wall thickening. The liver is enlarged with diffuse fatty infiltration. Spleen is mildly enlarged. Stomach is partially distended. NPO LR 125 cc/hr Zofran 4 mg IV Q6H prn Flagyl 500mg q8h Ceftriaxone 1gm q12h Alcohol Withdrawal Monitor closely CIWA protocol Ativan 2 mg IV Q6H [facility] Ativan 2 mg IV Q2H prn IV folic acid and IV thiamine daily Psych consulted, help appreciated Tobacco abuse Nicotine patch daily Prophylactic Measure SCDs for now Protonix 40 mg IV daily NPO <Rebecca Ashford V - Last Filed: 05/25/17 23:11> Objective - Vital Signs/Intake and Output Vital Signs (last 24 hours): Temp Pulse Resp BP Pulse Ox 98.2 F 84 20 128/79 97 05/25/17 15:57 05/25/17 15:57 05/25/17 15:57 05/25/17 15:57 05/25/17 08:06 - Medications Medications: Current Medications Ciprofloxacin (Cipro) 500 mg PO BID [facility] Stop: 06/05/17 18:00 Last Admin: 05/25/17 18:49 Dose: 500 mg Folic Acid (Folic Acid) 1 mg PO DAILY [facility] Last Admin: 05/25/17 12:50 Dose: Not Given Gabapentin (Neurontin) 100 mg PO TID [facility] Last Admin: 05/25/17 17:44 Dose: 100 mg Lorazepam (Ativan) 1 mg PO Q6H [facility] PRN Reason: Taper Stop: 05/29/17 16:14 Last Admin: 05/25/17 21:50 Dose: 1 mg Metronidazole (Flagyl) 500 mg PO Q8 [facility] Stop: 06/05/17 14:00 Last Admin: 05/25/17 21:49 Dose: 500 mg Mirtazapine (Remeron) 15 mg PO HS [facility] Last Admin: 05/25/17 21:50 Dose: 15 mg Multivitamins (Hexavitamin) 1 tab PO DAILY [facility] Last Admin: 05/25/17 09:42 Dose: 1 tab Nicotine (Nicoderm Cq) 1 patch TD DAILY [facility] Last Admin: 05/25/17 09:41 Dose: 1 patch Olanzapine (Zyprexa) 5 mg PO BID [facility] Last Admin: 05/25/17 17:44 Dose: 5 mg Pantoprazole Sodium (Protonix Ec Tab) 40 mg PO DAILY [facility] Last Admin: 05/25/17 12:45 Dose: Not Given Potassium Chloride (K-Dur 20 Meq Er Tab) 40 meq PO DAILY [facility] Last Admin: 05/25/17 12:09 Dose: 40 meq Saccharomyces Boulardii (Florastor) 250 mg PO BID [facility] Stop: 07/06/17 18:00 Last Admin: 05/25/17 18:50 Dose: 250 mg Thiamine HCl (Vitamin B1 Tab) 100 mg PO DAILY [facility] Last Admin: 05/25/17 12:45 Dose: Not Given - Labs Labs: 05/25/17 06:22 05/25/17 06:22 Attending/Attestation - Attestation I have personally seen and examined this patient.: Yes I have fully participated in the care of the patient.: Yes I have reviewed all pertinent clinical information, including history, physical exam and plan: Yes Notes (Text): This is a late computer entry for 05/23/17. Patient seen, examined, and case discussed with day-time resident. Patient seen in the [facility] awaiting bed for the floor. Patient is not agreeable to speaking with me nor my resident. Patient is currently on IV fluids, will start IV abx to cover for colitis. Discussed with nurse who will collect blood, urine cultures prior to starting IV Abx. Patient is guarding on my exam. Will continue NPO status. Will consult psychiatry given alcohol abuse/withdrawal. Patient's magnesium was low. Replete and follow-up magnesium was ordered. Assessment/Plan 1) Enterocolitis * CT abdomen/pelvis w. IV contrast: * Duodenum and proximal jejunum are mildly dilated with fluid. There are scattered areas of small bowel wall thickening. There is air and fluid throughout the small bowel. There is mild terminal ileal wall thickening. There is distal transverse, descending and sigmoid colon wall thickening. The liver is enlarged with diffuse fatty infiltration. Spleen is mildly enlarged. Stomach is partially distended. * NPO * LR 125 cc/hr * d/c Zofran 4 mg IV Q6H prn given elevated QT on EKG * Start Flagyl 500mg IV q8h * Start Ceftriaxone 1gm q12h 2) Alcohol Withdrawal * Monitor closely * CIWA protocol * Ativan 2 mg IV Q6H [facility] * Ativan 2 mg IV Q2H prn * IV folic acid and IV thiamine daily * Psych consulted, help appreciated 3) Tobacco abuse * Nicotine patch daily 4) Electrolyte imbalances * Monitor and replete if necessary 5) Prophylactic Measure * SCDs for now * Protonix 40 mg IV daily * NPO * IV fluids
--- NOTE | 2017-05-23 09:46 | RAD ---
HISTORY: abd pain COMPARISON: No prior. FINDINGS: BOWEL: Normal. No obstruction. No free air. BONES: Normal. OTHER FINDINGS: None. IMPRESSION: No active disease.
--- NOTE | 2017-05-23 09:48 | RAD ---
HISTORY: abd pain COMPARISON: 12/02/2015 TECHNIQUE: Chest PA and lateral FINDINGS: LUNGS: No consolidation. The right mid lung zone discoid atelectasis/scarring is more conspicuous. No active pulmonary disease. PLEURA: No significant pleural effusion identified. No pneumothorax apparent. CARDIOVASCULAR: Normal. OSSEOUS STRUCTURES: No significant abnormalities. VISUALIZED UPPER ABDOMEN: Normal. OTHER FINDINGS: None. IMPRESSION: No consolidative infiltrate. Mid right lung zone platelike scarring/atelectasis noted
[2017-05-23] MEDS: Thiamine 100 mg/ml Inj IV SCH (10:57)
--- NOTE | 2017-05-23 11:21 | PCM.PSYCH ---
Initial Psychiatric Evaluation - Initial Psychiatric Evaluation Type of Admission: Voluntary History of Present Illness and Precipitating Events: Consultation ordered by Medicine team for alcohol abuse and withdrawal. Patient is a 36 year old male with a past medical history of cystic fibrosis and alcohol abuse, who presented to the hospital with complaints of severe abdominal pain. The patient is , has no children, unemployed (laid off) , and lives with his sister in [place]. Patient reports drinking "3 bottles or 32 gallons" of vodka daily since 2007. He denies any significant event or trauma that occurred in 2007 that triggered his drinking. Patient says he has never had a period of sobriety from alcohol since starting in 2007 and has never been to detox or rehab. Patient's last use was yesterday before coming to the hospital and drank "a lot of vodka". Patient states he used IV heroin from ages [age], and stopped when he went to long term at the age of 19. He says he has not used since and does not use drugs currently. Patient smokes 1ppd of cigarettes for "29 years". Patient denies history of psychiatric disorders and hospitalizations. Patient denies family history of psychiatric or substance abuse disorders. Patient reports he has family support. Patient says he currently "feels okay, just very tired". Current Medications: Active Medications Generic Name Dose Route Start Last Admin Trade Name Maria R PRN Reason Stop Dose Admin Folic Acid 1 mg/ Sodium 100.2 mls @ 60 mls/hr 05/23/17 10:00 05/23/17 10:00 Chloride IV 60 mls/hr DAILY [facility] Administration Lactated Ringer's 1,000 mls @ 125 mls/hr 05/23/17 01:30 05/23/17 09:30 Lactated Ringer's IV 125 mls/hr .Q8H [facility] Administration Ceftriaxone Sodium 1 gm/ 100 mls @ 100 mls/hr 05/23/17 10:00 05/23/17 10:57 Sodium Chloride IVPB 100 mls/hr Q12H [facility] Administration Metronidazole 500 mg in 100 mls @ 100 mls/hr 05/23/17 14:00 Flagyl IVPB Q8 [facility] Lorazepam 2 mg 05/23/17 01:00 05/23/17 07:10 Ativan IVP 2 mg Q6H [facility] Administration Lorazepam 2 mg 05/23/17 00:49 Ativan IVP Q2H PRN Symptoms of alcohol withdrawl Nicotine 1 patch 05/23/17 10:00 05/23/17 10:57 Nicoderm Cq TD 1 patch DAILY [facility] Administration Pantoprazole Sodium 40 mg 05/23/17 10:00 05/23/17 10:56 Protonix Inj IVP 40 mg DAILY [facility] Administration Thiamine HCl 100 mg 05/23/17 10:00 05/23/17 10:57 Vitamin B1 Inj IV 100 mg DAILY [facility] Administration Past Psychiatric History - Past Psychiatric History Pertinent Medical Hx (Current Medical&Sleep Prob, Allergies): Allergies Allergy/AdvReac Type Severity Reaction Status Date / Time No Known Allergies Allergy Verified 05/22/17 19:25 No Known Home Med 05/22/17 Review of Systems - Constitutional Constitutional: Sweats - Neurological Neurological: Tremor - Psychiatric Psychiatric: absent: Anxiety, Auditory Hallucinations, Depression, Hallucinations, Visual Hallucinations Mental Status Examination - Personal Presentation Personal Presentation: Looks older than stated age - Affect Affect: Constricted - Motor Activity Motor Activity: Calm - Reliability in Providing Information Reliability in Providing Information: Other (Poor- patient is lethargic and continuously falling asleep) - Speech Speech: Organized - Mood Mood: Neutral - Formal Thought Process Formal Thought Process: No Impairment - Cognitive Functions Orientation: Person, Place, Situation Sensorium: Drowsy, Lethargic Estimate of Intelligence: Below average Judgement: Imparied, as evidence by: Lack of insight into illness Memory: Recent intact, as evidence by: Ability to recall events of the day - Risk Risk: Withdrawal, Diminished functioning - Strength & Assets Inventory Strength & Assets Inventory: Family support DSM 5 DX - DSM 5 DSM 5 Diagnosis: Alcohol use disorder Alcohol Withdrawal - Recommended/Plan of Treatment Treatment Recommendations and Plan of Treatment: Continue alcohol detox, folic acid, thiamine, ativan 2mg IV Q2 PRN, ativan 2mg IV Q6 As needed medications Encourage supportive therapy, SD for abstinence, CBT for relapse prevention Refer to rehab or IOP, and self-help groups Smoking cessation with SD, Nicotine patch 34 min - Smoking Cessation Smoking Cessation Initiated: Yes
[2017-05-23] MEDS: metroNIDAZOLE IV 500 mg/100 ml 500 MG/100 ML BAG IVPB SCH ×2 (13:24→21:51)
[2017-05-23] MEDS ORDERED: Lactated Ringer's 2,000 ML ONE (19:13)
[2017-05-24] MEDS: Lactated Ringer's 1,000 ML IV SCH ×2 (04:40→09:30)
[2017-05-24] MEDS: metroNIDAZOLE IV 500 mg/100 ml 500 MG/100 ML BAG IVPB SCH ×3 (06:23→21:16)
[2017-05-24 06:42] LABS: BASO % 0.2 % (0.0-2.0); EOS # 0.1 K/uL (0.0-0.7); EOS % 2.6 % (0.0-4.0); HEMOGLOBIN 13.3 g/dL (12.0-18.0); LYMPH % 20.3 % (20.0-40.0); MEAN CELL VOLUME 90.7 fL (80.0-94.0); MEAN CORPUSCULAR HEMOGLOBIN 30.5 pg (27.0-31.0); MEAN CORPUSCULAR HGB CONC 33.6 g/dL (33.0-37.0); MEAN PLATELET VOLUME 9.3 fL (7.2-11.7); MONO # 0.7 K/uL (0.0-0.8); MONO % 14.5 % (0.0-10.0); NEUT # 3.1 K/uL (1.8-7.0); NEUT % 62.4 % (50.0-75.0); NRBC % 0.1 % (0.0-2.0); RBC 4.35 Mil/uL (4.40-5.90); RED CELL DISTRIBUTION WIDTH 13.9 % (11.5-14.5); WHITE BLOOD COUNT 4.9 K/uL (4.8-10.8)
[2017-05-24 07:19] LABS: ALBUMIN 3.3 g/dL (3.5-5.0); ALT/SGPT 100 U/L (21-72); AST/SGOT 119 U/L (17-59); BLOOD UREA NITROGEN 9 mg/dL (9-20); CALCIUM 7.7 mg/dl (8.6-10.4); GFR AFRICAN-AMERICAN > 60; GFR NON-AFRICAN AMERICAN > 60; MAGNESIUM 1.3 mg/dL (1.6-2.3)
--- NOTE | 2017-05-24 07:45 | CP.PCM.PN ---
<Julia Taylor - Last Filed: 05/24/17 17:02> Subjective - Date & Time of Evaluation Date of Evaluation: 05/24/17 Time of Evaluation: 07:00 - Subjective Subjective: PGY1- Medicine Note-Dr. Matthews's Service Patient seen and examined at bedside and in no acute distress. Patient says his abdominal pain is much less today. Patient has not vomited or had diarrhea today. Patient is feeling hungry and ate 1/2 a sandwich last night despite being NPO. Patient says he feels anxious, shaky, and sweaty. Patient denies any shortness of breath or chest pain. Objective - Vital Signs/Intake and Output Vital Signs (last 24 hours): Temp Pulse Resp BP Pulse Ox 99.1 F 87 20 122/81 98 05/24/17 04:00 05/24/17 04:00 05/24/17 04:00 05/24/17 04:00 05/24/17 04:00 Intake and Output: 05/24/17 05/24/17 06:59 18:59 Intake Total 1375 Output Total 700 Balance 675 - Medications Medications: Current Medications Folic Acid 1 mg/ Sodium (Chloride) 100.2 mls @ 60 mls/hr IV DAILY [facility] Last Admin: 05/23/17 10:00 Dose: 60 mls/hr Lactated Ringer's (Lactated Ringer's) 1,000 mls @ 125 mls/hr IV .Q8H [facility] Last Admin: 05/24/17 04:40 Dose: 125 mls/hr Ceftriaxone Sodium 1 gm/ (Sodium Chloride) 100 mls @ 100 mls/hr IVPB Q12H [facility] Last Admin: 05/23/17 21:51 Dose: 100 mls/hr Metronidazole (Flagyl) 500 mg in 100 mls @ 100 mls/hr IVPB Q8 [facility] Last Admin: 05/24/17 06:23 Dose: 100 mls/hr Lorazepam (Ativan) 2 mg IVP Q6H [facility] Last Admin: 05/24/17 06:27 Dose: 2 mg Lorazepam (Ativan) 2 mg IVP Q2H PRN PRN Reason: Symptoms of alcohol withdrawl Last Admin: 05/23/17 22:26 Dose: 2 mg Nicotine (Nicoderm Cq) 1 patch TD DAILY [facility] Last Admin: 05/23/17 10:57 Dose: 1 patch Pantoprazole Sodium (Protonix Inj) 40 mg IVP DAILY [facility] Last Admin: 05/23/17 10:56 Dose: 40 mg Pneumococcal Polyvalent Vaccine (Pneumovax 23 Vaccine) 0.5 ml IM .ONCE ONE Stop: 05/24/17 10:01 Thiamine HCl (Vitamin B1 Inj) 100 mg IV DAILY [facility] Last Admin: 05/23/17 10:57 Dose: 100 mg - Labs Labs: 05/24/17 06:33 05/24/17 06:33 - Constitutional Appears: Non-toxic, No Acute Distress, Agitated - Head Exam Head Exam: ATRAUMATIC, NORMAL INSPECTION, NORMOCEPHALIC - Eye Exam Eye Exam: EOMI, Normal appearance - ENT Exam ENT Exam: Mucous Membranes Dry - Respiratory Exam Respiratory Exam: Clear to Ausculation Bilateral, NORMAL BREATHING PATTERN - Cardiovascular Exam Cardiovascular Exam: REGULAR RHYTHM, +S1, +S2 - GI/Abdominal Exam GI & Abdominal Exam: Soft, Tenderness, Normal Bowel Sounds. absent: Guarding - Extremities Exam Extremities Exam: Normal Inspection. absent: Pedal Edema Additional comments: digital clubbing - Neurological Exam Neurological Exam: Alert, Awake, Oriented x3 - Psychiatric Exam Psychiatric exam: Anxious Additional comments: tremulous - Skin Skin Exam: Intact, Normal Color, Warm Assessment and Plan - Assessment and Plan (Free Text) Assessment: Enterocolitis CT abdomen/pelvis w. IV contrast: * Duodenum and proximal jejunum are mildly dilated with fluid. There are scattered areas of small bowel wall thickening. There is air and fluid throughout the small bowel. There is mild terminal ileal wall thickening. There is distal transverse, descending and sigmoid colon wall thickening. The liver is enlarged with diffuse fatty infiltration. Spleen is mildly enlarged. Stomach is partially distended. LR 125 cc/hr Zofran 4 mg IV Q6H prn Flagyl 500mg q8h Ceftriaxone 1gm q12h CLD advanced to soft diet Alcohol Withdrawal Monitor closely [place] protocol Ativan taper day 1 IV folic acid and IV thiamine daily, multivitamin daily Psych consulted, help appreciated patient would like to go to detox once medically stable Hypomagnesemia 05/24: 1.3, Mg 1 gm x2 .9mg, given 3gm magnesium, repeat 1.8 monitor Hypokalemia 3.4, Kdur 40meq po Hyponatremia f/u lipid profile TSH, T4 Urine Osm Serum Osm Urine Random sodium Transaminitis trending down AST: 119 ALT: 100 Tobacco abuse Nicotine patch daily Prophylactic Measure SCDs Protonix 40 mg IV daily soft diet <Deshaun Matthews Yunier - Last Filed: 05/24/17 20:04> Objective - Vital Signs/Intake and Output Vital Signs (last 24 hours): Temp Pulse Resp BP Pulse Ox 98.7 F 105 H 20 126/80 97 05/24/17 15:00 05/24/17 15:20 05/24/17 15:00 05/24/17 15:00 05/24/17 15:00 Intake and Output: 05/24/17 05/25/17 18:59 06:59 Intake Total 1250 Balance 1250 - Medications Medications: Current Medications Folic Acid 1 mg/ Sodium (Chloride) 100.2 mls @ 60 mls/hr IV DAILY [facility] Last Admin: 05/24/17 10:50 Dose: 60 mls/hr Ceftriaxone Sodium 1 gm/ (Sodium Chloride) 100 mls @ 100 mls/hr IVPB Q12H [facility] Last Admin: 05/24/17 10:05 Dose: 100 mls/hr Metronidazole (Flagyl) 500 mg in 100 mls @ 100 mls/hr IVPB Q8 [facility] Last Admin: 05/24/17 13:28 Dose: 100 mls/hr Lorazepam (Ativan) 2 mg PO Q8H [facility] PRN Reason: Taper Stop: 05/29/17 15:50 Mirtazapine (Remeron) 15 mg PO HS [facility] Multivitamins (Hexavitamin) 1 tab PO DAILY [facility] Last Admin: 05/24/17 17:03 Dose: 1 tab Nicotine (Nicoderm Cq) 1 patch TD DAILY [facility] Last Admin: 05/24/17 09:28 Dose: 1 patch Pantoprazole Sodium (Protonix Inj) 40 mg IVP DAILY [facility] Last Admin: 05/24/17 09:27 Dose: 40 mg Thiamine HCl (Vitamin B1 Inj) 100 mg IV DAILY [facility] Last Admin: 05/24/17 09:36 Dose: 100 mg - Labs Labs: 05/24/17 06:33 05/24/17 06:33 Attending/Attestation - Attestation I have personally seen and examined this patient.: Yes I have fully participated in the care of the patient.: Yes I have reviewed all pertinent clinical information, including history, physical exam and plan: Yes Notes (Text): 05/24/17 20:02 Patient was seen and examined at 3:00 PM 05/24/17. Exam, assessment and plan were gone over with the resident. Patient is tolerating clear liquids and diet was therefore advanced to soft and if he tolerates this we will advance to Regular on 05/25/17. PO Ativan Taper was started due to trumulous hands. Spoke with patient's via phone as per patient's request and updated her on patient status. Deshaun Matthews D.O.
[2017-05-24] MEDS: Magnesium Sulfate 1 gm in D5W 1 GM/100 ML BAG IVPB SCH ×4 (07:49→15:23)
[2017-05-24] MEDS: Thiamine 100 mg/ml Inj IV SCH (09:36)
[2017-05-24] MEDS ORDERED: Influenza Vaccine 60 mcg/0.5 mL SYR (4YR UP) IM ONE (10:00)
[2017-05-24] MEDS ORDERED: Potassium Chloride 20 mEq ER Tab PO ONE (10:00)
[2017-05-24] MEDS ORDERED: Pneumococcal 23-Valent Vaccine IM ONE (10:00)
--- NOTE | 2017-05-24 10:30 | CARD ---
APPROVED REPORT EKG Measurement Heart [id number] CA 116P [id number] <Conclusion> Sinus tachycardia Right axis deviation Low voltage QRS Septal infarct, age undetermined Abnormal ECG
--- NOTE | 2017-05-24 14:16 | PCM.PYCHPN ---
Psychiatric Progress Note - Psychiatric Progress Note Patient seen today, length of contact: 15 min Patient Chief Complaint: I am feeling depressed.' Problems Identified/Issues Discussed: Patient seen and evaluated, chart reviewed and discussed with the nurse. Patient remained disorganized and internally preoccupied. He still reports of hearing voices. Patient still appears paranoid and delusional. Patient reports withdrawal symptoms including nausea, headaches, shakes, cramps and sweating. He reports depressed mood and feelings of hopelessness and helplessness. Patient remained isolated, confined and withdrawn. Patient is compliant with medications and denies any side effects. Symptoms are improving but need more time to stabilize. Support and psychoeducation given. Medication Change: Yes (start remeron) Medical Record Reviewed: Yes Mental Status Examination - Cognitive Function Orientation: Person, Place, Situation Memory: Intact Attention: WNL Concentration: Poor Association: WNL Fund of Knowledge: Poor - Mood Mood: Depressed, Anxious - Affect Affect: Constricted, Depressed - Speech Speech: Soft - Formal Thought Process Formal Thought Process: Hallucinations, Delusions - Suicidal Ideation Suicidal Ideation: No - Homicidal Ideation Homicidal Ideation: No Goal/Treatment Plan - Goal/Treatment Plan Need for Continued Stay: Severe depression anxiety, Severe functional impairment Progress Toward Problem(s) and Goals/Treatment Plan: Alcohol use disorder severe CBT Psychoeducation Supportive therapy, individual therapy Use HI for abstinence Alcohol withdrawal CBT Psychoeducation Supportive therapy, individual therapy Librium taper when scoring Librium PRN Major depressive disorder recurrent severe with psychotic features CBT Psychoeducation Supportive therapy, group therapy, individual therapy Olanzapine 5 g by mouth twice a day Neurontin 100 mg by mouth 3 times a day Trazodone 50 mg by mouth daily at bedtime - Smoking Cessation Smoking Cessation Initiated: No
[2017-05-24] MEDS ORDERED: Magnesium Sulfate 1 gm in D5W 1 GM/100 ML BAG IVPB SCH (14:45)
[2017-05-24] MEDS: Multiple Vitamins Tab PO SCH (17:03)
[2017-05-25] MEDS: metroNIDAZOLE IV 500 mg/100 ml 500 MG/100 ML BAG IVPB SCH (05:19)
[2017-05-25 06:45] LABS: BASO % 0.3 % (0.0-2.0); EOS # 0.2 K/uL (0.0-0.7); EOS % 3.3 % (0.0-4.0); HEMOGLOBIN 13.7 g/dL (12.0-18.0); LYMPH # 1.2 K/uL (1.0-4.3); LYMPH % 21.6 % (20.0-40.0); MEAN CELL VOLUME 90.3 fL (80.0-94.0); MEAN CORPUSCULAR HEMOGLOBIN 29.3 pg (27.0-31.0); MEAN CORPUSCULAR HGB CONC 32.4 g/dL (33.0-37.0); MEAN PLATELET VOLUME 9.4 fL (7.2-11.7); MONO # 0.8 K/uL (0.0-0.8); MONO % 15.2 % (0.0-10.0); NEUT # 3.2 K/uL (1.8-7.0); NEUT % 59.6 % (50.0-75.0); NRBC % 0.1 % (0.0-2.0); RBC 4.68 Mil/uL (4.40-5.90); RED CELL DISTRIBUTION WIDTH 14.1 % (11.5-14.5); WHITE BLOOD COUNT 5.4 K/uL (4.8-10.8)
[2017-05-25 07:54] LABS: FREE T4 0.82 ng/dL (0.78-2.19)
[2017-05-25 08:00] LABS: LDL CHOLESTEROL 102 mg/dL (0-129)
[2017-05-25 08:07] LABS: ALBUMIN 3.6 g/dL (3.5-5.0); ALT/SGPT 138 U/L (21-72); AST/SGOT 188 U/L (17-59); BLOOD UREA NITROGEN 8 mg/dL (9-20); CALCIUM 8.1 mg/dl (8.6-10.4); GFR AFRICAN-AMERICAN > 60; GFR NON-AFRICAN AMERICAN > 60; HDL CHOLESTEROL 47 mg/dL (30-70); MAGNESIUM 1.6 mg/dL (1.6-2.3)
[2017-05-25] MEDS: Thiamine 100 mg/ml Inj IV SCH (09:41)
[2017-05-25] MEDS: Multiple Vitamins Tab PO SCH (09:42)
[2017-05-25] MEDS: Potassium Chloride 20 mEq ER Tab PO SCH (12:09)
[2017-05-25] MEDS: Pantoprazole 40 mg EC Tab PO SCH (12:45)
--- NOTE | 2017-05-25 16:02 | CP.PCM.PN ---
<Julia Taylor - Last Filed: 05/25/17 17:02> Subjective - Date & Time of Evaluation Date of Evaluation: 05/25/17 Time of Evaluation: 07:00 - Subjective Subjective: PGY1-Medicine Note- Dr. Matthews's Service Patient seen and examined at bedside and in no acute distress. Patient still feels anxious and shaky. Patient says he is not having any nausea, vomiting or diarrhea. Patient was able to tolerate a small amount of dinner last night with no nausea or vomiting. Patient still having abdominal pain that he says comes and goes. Patient denies any chest pain or shortness of breath. Objective - Vital Signs/Intake and Output Vital Signs (last 24 hours): Temp Pulse Resp BP Pulse Ox 98.0 F 85 20 130/88 97 05/25/17 08:06 05/25/17 08:06 05/25/17 08:06 05/25/17 08:06 05/25/17 08:06 Intake and Output: 05/25/17 05/25/17 06:59 18:59 Intake Total 1200 Balance 1200 - Medications Medications: Current Medications Ciprofloxacin (Cipro) 500 mg PO BID [facility] Stop: 06/05/17 18:00 Folic Acid (Folic Acid) 1 mg PO DAILY [facility] Last Admin: 05/25/17 12:50 Dose: Not Given Gabapentin (Neurontin) 100 mg PO TID [facility] Last Admin: 05/25/17 13:45 Dose: 100 mg Lorazepam (Ativan) 1 mg PO Q6H [facility] PRN Reason: Taper Stop: 05/29/17 15:50 Last Admin: 05/25/17 07:38 Dose: 2 mg Metronidazole (Flagyl) 500 mg PO Q8 [facility] Stop: 06/05/17 14:00 Last Admin: 05/25/17 13:45 Dose: 500 mg Mirtazapine (Remeron) 15 mg PO HS [facility] Last Admin: 05/24/17 21:15 Dose: 15 mg Multivitamins (Hexavitamin) 1 tab PO DAILY [facility] Last Admin: 05/25/17 09:42 Dose: 1 tab Nicotine (Nicoderm Cq) 1 patch TD DAILY [facility] Last Admin: 05/25/17 09:41 Dose: 1 patch Olanzapine (Zyprexa) 5 mg PO BID [facility] Last Admin: 05/25/17 10:41 Dose: 5 mg Pantoprazole Sodium (Protonix Ec Tab) 40 mg PO DAILY [facility] Last Admin: 05/25/17 12:45 Dose: Not Given Potassium Chloride (K-Dur 20 Meq Er Tab) 40 meq PO DAILY [facility] Last Admin: 05/25/17 12:09 Dose: 40 meq Saccharomyces Boulardii (Florastor) 250 mg PO BID [facility] Stop: 07/06/17 18:00 Thiamine HCl (Vitamin B1 Tab) 100 mg PO DAILY [facility] Last Admin: 05/25/17 12:45 Dose: Not Given - Labs Labs: 05/25/17 06:22 05/25/17 06:22 - Additional Findings Additional findings: - Constitutional Appears: Non-toxic, No Acute Distress, Agitated - Head Exam Head Exam: ATRAUMATIC, NORMAL INSPECTION, NORMOCEPHALIC - Eye Exam Eye Exam: EOMI, Normal appearance - ENT Exam ENT Exam: Mucous Membranes Dry - Respiratory Exam Respiratory Exam: Clear to Ausculation Bilateral, NORMAL BREATHING PATTERN - Cardiovascular Exam Cardiovascular Exam: REGULAR RHYTHM, +S1, +S2 - GI/Abdominal Exam GI & Abdominal Exam: Soft, Tenderness, Normal Bowel Sounds. absent: Guarding - Extremities Exam Extremities Exam: Normal Inspection. absent: Pedal Edema Additional comments: digital clubbing - Neurological Exam Neurological Exam: Alert, Awake, Oriented x3 - Psychiatric Exam Psychiatric exam: Anxious Additional comments: tremulous - Skin Skin Exam: Intact, Normal Color, Warm Assessment and Plan - Assessment and Plan (Free Text) Assessment: Enterocolitis CT abdomen/pelvis w. IV contrast: * Duodenum and proximal jejunum are mildly dilated with fluid. There are scattered areas of small bowel wall thickening. There is air and fluid throughout the small bowel. There is mild terminal ileal wall thickening. There is distal transverse, descending and sigmoid colon wall thickening. The liver is enlarged with diffuse fatty infiltration. Spleen is mildly enlarged. Stomach is partially distended. ova and parasite negative blood culture negative Zofran 4 mg IV Q6H prn Flagyl 500mg q8h Ceftriaxone switched to Cipro 500mg po BID Florastor 250mg po BID regular diet Alcohol Withdrawal Monitor closely [facility] protocol Ativan taper day 2 Gabapentin 100mg po TID IV folic acid and IV thiamine daily, multivitamin daily Psych consulted, help appreciated patient would like to go to detox once medically stable Major depressive disorder recurrent severe without psychotic features Management as per psych Remeron 15mg po HS Olanzapine 5mg po BID Hypomagnesemia 05/24: 1.3, Mg 1 gm x2 .9mg, given 3gm magnesium, repeat 1.8 monitor Hypokalemia 3.5, Kdur 40meq po monitor Hyponatremia lipid profile: Triglycerides: 76, Cholesterol: 172, LDL: 102, HDL: 47 TSH:14.40, T4: .82 will need to be repeated in 2 weeks as an outpatient Urine Osm Serum Osm Urine Random sodium Transaminitis AST: 188 ALT: 138 Tobacco abuse Nicotine patch daily Prophylactic Measure SCDs Protonix 40 mg IV daily regular diet Dispo: Patient transferred to Dr. Silverman's service for alcohol detox. <Deshaun Matthews - Last Filed: 05/25/17 19:27> Objective - Vital Signs/Intake and Output Vital Signs (last 24 hours): Temp Pulse Resp BP Pulse Ox 98.2 F 84 20 128/79 97 05/25/17 15:57 05/25/17 15:57 05/25/17 15:57 05/25/17 15:57 05/25/17 08:06 - Medications Medications: Current Medications Ciprofloxacin (Cipro) 500 mg PO BID [facility] Stop: 06/05/17 18:00 Last Admin: 05/25/17 18:49 Dose: 500 mg Folic Acid (Folic Acid) 1 mg PO DAILY [facility] Last Admin: 05/25/17 12:50 Dose: Not Given Gabapentin (Neurontin) 100 mg PO TID [facility] Last Admin: 05/25/17 17:44 Dose: 100 mg Lorazepam (Ativan) 1 mg PO Q6H [facility] PRN Reason: Taper Stop: 05/29/17 16:14 Last Admin: 05/25/17 16:53 Dose: 1 mg Metronidazole (Flagyl) 500 mg PO Q8 [facility] Stop: 06/05/17 14:00 Last Admin: 05/25/17 13:45 Dose: 500 mg Mirtazapine (Remeron) 15 mg PO HS [facility] Last Admin: 05/24/17 21:15 Dose: 15 mg Multivitamins (Hexavitamin) 1 tab PO DAILY [facility] Last Admin: 05/25/17 09:42 Dose: 1 tab Nicotine (Nicoderm Cq) 1 patch TD DAILY [facility] Last Admin: 05/25/17 09:41 Dose: 1 patch Olanzapine (Zyprexa) 5 mg PO BID [facility] Last Admin: 05/25/17 17:44 Dose: 5 mg Pantoprazole Sodium (Protonix Ec Tab) 40 mg PO DAILY [facility] Last Admin: 05/25/17 12:45 Dose: Not Given Potassium Chloride (K-Dur 20 Meq Er Tab) 40 meq PO DAILY [facility] Last Admin: 05/25/17 12:09 Dose: 40 meq Saccharomyces Boulardii (Florastor) 250 mg PO BID [facility] Stop: 07/06/17 18:00 Last Admin: 05/25/17 18:50 Dose: 250 mg Thiamine HCl (Vitamin B1 Tab) 100 mg PO DAILY [facility] Last Admin: 05/25/17 12:45 Dose: Not Given - Labs Labs: 05/25/17 06:22 05/25/17 06:22 Attending/Attestation - Attestation I have personally seen and examined this patient.: Yes I have fully participated in the care of the patient.: Yes I have reviewed all pertinent clinical information, including history, physical exam and plan: Yes Notes (Text): 05/25/17 19:24 Patient was seen and examined at 12:00 PM 05/25/17 Exam, assessment and plan were thoroughly gone over with the resident. Patient is medically stable for transfer to the in-patient psychiatry unit for detox. Medicine Team will follow up with Stool Studies, HIV Test, Hepatitis Panel. He will need to continue Cipro and Flagyl as ordered through 06/05/17. He will need to follow up with [facility] Floor B [phone] after his discharge from the Psychiatry Unit for coordination of his medical care. Deshaun Matthews D.O.
[2017-05-25 18:13] LABS: HEPATITIS B SURFACE AG NEGATIVE (NEGATIVE)
[2017-05-25 18:19] LABS: HEPATITIS A IGM NEGATIVE (NEGATIVE); HEPATITIS B CORE AB Negative (NEGATIVE)
[2017-05-25] MEDS: Saccharomyces Boulardi 250 mg Cap PO SCH (18:50)
--- NOTE | 2017-05-25 19:32 | PCM.BM ---
<BenycatalinaNiki - Last Filed: 05/25/17 19:30> Treatment Plan Problems - Problems identified on initial assessmt Depression Date Initiated: 05/25/17 Time Initiated: 19:31 Assessment reference: NA Status: Active Treatment assets and liabiliti Patient Assests: cooperative, good support system Patient Liabilities: live alone - Milieu Protocol Maintain good personal hygiene: every shift Encourage regular showers, every shift Remind patient to perform daily oral care, every shift Assist patient to perform ADL's Maintain personal safety: every shift Educate patient to report safety concerns to staff, every shift Monitor environment for contraband/sharps Medication safety: Monitor for expected outcome, potential side effects: every shift, Assess barriers to learning: every shift, Assess readiness for medication education: every shift Milieu Narrative: Alcohol use disorder severe CBT Psychoeducation Supportive therapy, individual therapy Use [place] for abstinence Alcohol withdrawal CBT Psychoeducation Supportive therapy, individual therapy Librium taper when scoring Librium PRN Major depressive disorder recurrent severe without psychotic features CBT Psychoeducation Supportive therapy, group therapy, individual therapy Olanzapine 5 g by mouth twice a day Neurontin 100 mg by mouth 3 times a day Trazodone 50 mg by mouth daily at bedtime Discharge/Continuing Care - Treatment Team Participation Patient/Family/SO Statement: Alcohol use disorder severe CBT Psychoeducation Supportive therapy, individual therapy Use [place] for abstinence Alcohol withdrawal CBT Psychoeducation Supportive therapy, individual therapy Librium taper when scoring Librium PRN Major depressive disorder recurrent severe without psychotic features CBT Psychoeducation Supportive therapy, group therapy, individual therapy Olanzapine 5 g by mouth twice a day Neurontin 100 mg by mouth 3 times a day Trazodone 50 mg by mouth daily at bedtime <Helen Silverman - Last Filed: 05/26/17 11:14> - Diagnosis (1) Major depressive disorder, recurrent, severe with psychotic features Status: Acute Interventions: 05/26/17 11:16 * Assess/adjust medications daily and /or as needed * See patient on an individual basis 7x/week to assess symptoms of depression * Monitor for side effects & effectiveness of medications * (2) Alcohol abuse Status: Acute Interventions: 05/26/17 11:17 * Assess 7x/week regarding severity of withdrawal * Educate regarding risks, benefits, side effects and alternatives of medications * Use Motivational Interviewing for abstinence * Use CBT for relapse prevention * Medication management for withdrawal symptoms * Encourage medication assisted treatment * <Charmaine Thapa - Last Filed: 05/26/17 11:32> Family Contact Family involvement: Famliy/SO not involved - Goals for Treatment Patient goals for treatment: "I need an outpatient program." Discharge/Continuing Care - Education Needs Education Needs: Patient Medication, Patient Coping Skills - Discharge Discharge Criteria: Tolerates medication w/o severe side effects, No longer exhibiting s/s of withdrawal, Reduction of target symptoms Discharge to:: Home - Treatment Team Participation Discussed with Family/SO: No Was Patient/Family/SO present at Treatment Team Meeting: Yes
--- NOTE | 2017-05-26 00:20 | PCM.PYCHPN ---
Psychiatric Progress Note - Psychiatric Progress Note Patient seen today, length of contact: 15 min Patient Chief Complaint: I am hearing voices.' Problems Identified/Issues Discussed: Patient seen and evaluated, chart reviewed and discussed with the nurse. Patient reports withdrawal symptoms including nausea, headaches, shakes, cramps and sweating. He reports depressed mood and feelings of hopelessness and helplessness. Patient remained isolated, confined and withdrawn. Patient remained disorganized and internally preoccupied. He still reports of hearing voices. Patient still appears paranoid and delusional. Patient is compliant with medications and denies any side effects. Symptoms are improving but need more time to stabilize. Support and psychoeducation given. Medication Change: Yes (start remeron) Medical Record Reviewed: Yes Mental Status Examination - Cognitive Function Orientation: Person, Place, Situation Memory: Intact Attention: WNL Concentration: Poor Association: WNL Fund of Knowledge: Poor - Mood Mood: Depressed, Anxious - Affect Affect: Constricted, Depressed - Speech Speech: Soft - Formal Thought Process Formal Thought Process: Hallucinations, Delusions - Suicidal Ideation Suicidal Ideation: No - Homicidal Ideation Homicidal Ideation: No Goal/Treatment Plan - Goal/Treatment Plan Need for Continued Stay: Severe depression anxiety, Severe functional impairment Progress Toward Problem(s) and Goals/Treatment Plan: Major depressive disorder recurrent severe with psychotic features CBT Psychoeducation Supportive therapy, group therapy, individual therapy Olanzapine 5 g by mouth twice a day Remeron 15 mg po QHS Neurontin 100 mg by mouth 3 times a day Trazodone 50 mg by mouth daily at bedtime Alcohol use disorder severe CBT Psychoeducation Supportive therapy, individual therapy Use [place] for abstinence Alcohol withdrawal CBT Psychoeducation Supportive therapy, individual therapy Librium taper when scoring Librium PRN - Smoking Cessation Smoking Cessation Initiated: No
[2017-05-26 07:40] LABS: BASO % 0.6 % (0.0-2.0); EOS # 0.2 K/uL (0.0-0.7); EOS % 3.7 % (0.0-4.0); HEMOGLOBIN 14.5 g/dL (12.0-18.0); LYMPH # 1.4 K/uL (1.0-4.3); MEAN CORPUSCULAR HEMOGLOBIN 30.8 pg (27.0-31.0); MEAN CORPUSCULAR HGB CONC 33.8 g/dL (33.0-37.0); MEAN PLATELET VOLUME 9.5 fL (7.2-11.7); MONO # 1.2 K/uL (0.0-0.8); NEUT # 3.7 K/uL (1.8-7.0); NEUT % 56.7 % (50.0-75.0); NRBC % 0.1 % (0.0-2.0); RBC 4.72 Mil/uL (4.40-5.90); WHITE BLOOD COUNT 6.5 K/uL (4.8-10.8)
--- NOTE | 2017-05-26 09:24 | CP.PCM.PN ---
Subjective - Date & Time of Evaluation Date of Evaluation: 05/26/17 Time of Evaluation: 07:00 - Subjective Subjective: PGY1- Medicine Note Patient seen and examined and in no acute distress. Patient still feeling shaky. Patient denies any chest pain or shortness of breath, nausea, vomiting, constipation, or diarrhea. Objective - Vital Signs/Intake and Output Vital Signs (last 24 hours): Temp Pulse Resp BP Pulse Ox 97.9 F 80 16 116/78 97 05/26/17 06:15 05/26/17 06:15 05/26/17 06:15 05/26/17 06:15 05/25/17 08:06 - Medications Medications: Current Medications Ciprofloxacin (Cipro) 500 mg PO BID [facility] Stop: 06/05/17 18:00 Last Admin: 05/25/17 18:49 Dose: 500 mg Folic Acid (Folic Acid) 1 mg PO DAILY [facility] Last Admin: 05/25/17 12:50 Dose: Not Given Gabapentin (Neurontin) 100 mg PO TID [facility] Last Admin: 05/25/17 17:44 Dose: 100 mg Lorazepam (Ativan) 1 mg PO Q6H [facility] PRN Reason: Taper Stop: 05/29/17 16:14 Last Admin: 05/25/17 21:50 Dose: 1 mg Metronidazole (Flagyl) 500 mg PO Q8 [facility] Stop: 06/05/17 14:00 Last Admin: 05/25/17 21:49 Dose: 500 mg Mirtazapine (Remeron) 15 mg PO HS [facility] [place] Last Admin: 05/25/17 21:50 Dose: 15 mg Multivitamins (Hexavitamin) 1 tab PO DAILY [facility] Last Admin: 05/25/17 09:42 Dose: 1 tab Nicotine (Nicoderm Cq) 1 patch TD DAILY [facility] Last Admin: 05/25/17 09:41 Dose: 1 patch Olanzapine (Zyprexa) 5 mg PO BID [facility] Last Admin: 05/25/17 17:44 Dose: 5 mg Pantoprazole Sodium (Protonix Ec Tab) 40 mg PO DAILY [facility] [place] Last Admin: 05/25/17 12:45 Dose: Not Given Potassium Chloride (K-Dur 20 Meq Er Tab) 40 meq PO DAILY [facility] [place] Last Admin: 05/25/17 12:09 Dose: 40 meq Saccharomyces Boulardii (Florastor) 250 mg PO BID [facility] Stop: 07/06/17 18:00 Last Admin: 05/25/17 18:50 Dose: 250 mg Thiamine HCl (Vitamin B1 Tab) 100 mg PO DAILY [facility] Last Admin: 05/25/17 12:45 Dose: Not Given - Labs Labs: 05/26/17 07:16 05/25/17 06:22 - Additional Findings Additional findings: - Constitutional Appears: Non-toxic, No Acute Distress, Agitated - Head Exam Head Exam: ATRAUMATIC, NORMAL INSPECTION, NORMOCEPHALIC - Eye Exam Eye Exam: EOMI, Normal appearance - ENT Exam ENT Exam: Mucous Membranes Dry - Respiratory Exam Respiratory Exam: Clear to Ausculation Bilateral, NORMAL BREATHING PATTERN - Cardiovascular Exam Cardiovascular Exam: REGULAR RHYTHM, +S1, +S2 - GI/Abdominal Exam GI & Abdominal Exam: Soft, Tenderness, Normal Bowel Sounds. absent: Guarding - Extremities Exam Extremities Exam: Normal Inspection. absent: Pedal Edema Additional comments: digital clubbing - Neurological Exam Neurological Exam: Alert, Awake, Oriented x3 - Psychiatric Exam Psychiatric exam: Anxious Additional comments: tremulous - Skin Skin Exam: Intact, Normal Color, Warm Assessment and Plan - Assessment and Plan (Free Text) Assessment: Enterocolitis CT abdomen/pelvis w. IV contrast: * Duodenum and proximal jejunum are mildly dilated with fluid. There are scattered areas of small bowel wall thickening. There is air and fluid throughout the small bowel. There is mild terminal ileal wall thickening. There is distal transverse, descending and sigmoid colon wall thickening. The liver is enlarged with diffuse fatty infiltration. Spleen is mildly enlarged. Stomach is partially distended. ova and parasite negative stool culture: no salmonella, shigella or campylobacter stool leuk: negative blood culture negative Zofran 4 mg IV Q6H prn Flagyl 500mg q8h Ceftriaxone switched to Cipro 500mg po BID Patient to take flagyl and cipro for a total of 14 days (until 06/05/17) Florastor 250mg po BID regular diet f/u HIV Alcohol Withdrawal Monitor closely [facility] protocol Ativan taper Gabapentin 100mg po TID IV folic acid and IV thiamine daily, multivitamin daily Psych consulted, help appreciated patient would like to go to detox once medically stable Major depressive disorder recurrent severe without psychotic features Management as per psych Remeron 15mg po HS Olanzapine 5mg po BID Hypomagnesemia 05/24: 1.3, Mg 1 gm x2 .9mg, given 3gm magnesium, repeat 1.8 monitor Hypokalemia 3.5, Kdur 40meq po monitor Hyponatremia lipid profile: Triglycerides: 76, Cholesterol: 172, LDL: 102, HDL: 47 TSH:14.40, T4: .82 will need to be repeated in 2 weeks as an outpatient Urine Osm Serum Osm Urine Random sodium Transaminitis AST: 188 ALT: 138 Hep C Reactive patient to follow up with GI as an outpatient Tobacco abuse Nicotine patch daily Prophylactic Measure SCDs Protonix 40 mg IV daily regular diet
[2017-05-26] MEDS: Potassium Chloride 20 mEq ER Tab PO SCH (10:18)
[2017-05-26] MEDS: Multiple Vitamins Tab PO SCH (10:18)
[2017-05-26] MEDS: Pantoprazole 40 mg EC Tab PO SCH (10:19)
[2017-05-26] MEDS: Saccharomyces Boulardi 250 mg Cap PO SCH ×2 (10:26→17:40)
[2017-05-26 10:52] LABS: HEPATITIS C ANTIBODY Reactive (NEGATIVE)
--- NOTE | 2017-05-26 11:13 | PCM.PYCHPN ---
Psychiatric Progress Note - Psychiatric Progress Note Patient seen today, length of contact: 15 min Patient Chief Complaint: I am feeling shaky.' Problems Identified/Issues Discussed: Patient seen and evaluated, chart reviewed and discussed with the nurse. Patient reports some improvement in the withdrawal symptoms but still reports headaches, shakes,and sweating. He reports some improvement in his depressed mood and feelings of hopelessness and helplessness. Patient remained isolated, confined and withdrawn. Patient appears more organized and less internally preoccupied, however, he still reports of hearing voices. Patient is compliant with medications and denies any side effects. Symptoms are improving but need more time to stabilize. Support and psychoeducation given. Medication Change: Yes (start remeron) Medical Record Reviewed: Yes Mental Status Examination - Cognitive Function Orientation: Person, Place, Situation Memory: Intact Attention: WNL Concentration: Poor Association: WNL Fund of Knowledge: Poor - Mood Mood: Depressed, Anxious - Affect Affect: Constricted, Depressed - Speech Speech: Soft - Formal Thought Process Formal Thought Process: Hallucinations, Delusions - Suicidal Ideation Suicidal Ideation: No - Homicidal Ideation Homicidal Ideation: No Goal/Treatment Plan - Goal/Treatment Plan Need for Continued Stay: Severe depression anxiety, Severe functional impairment Progress Toward Problem(s) and Goals/Treatment Plan: Major depressive disorder recurrent severe with psychotic features CBT Psychoeducation Supportive therapy, group therapy, individual therapy Olanzapine 5 g by mouth twice a day Remeron 15 mg po QHS Neurontin 100 mg by mouth 3 times a day Trazodone 50 mg by mouth daily at bedtime Alcohol use disorder severe CBT Psychoeducation Supportive therapy, individual therapy Use [place] for abstinence Alcohol withdrawal CBT Psychoeducation Supportive therapy, individual therapy Librium taper when scoring Librium PRN
[2017-05-27 07:19] LABS: BASO # 0.1 K/uL (0.0-0.2); BASO % 0.8 % (0.0-2.0); EOS # 0.3 K/uL (0.0-0.7); EOS % 3.5 % (0.0-4.0); HEMOGLOBIN 15.1 g/dL (12.0-18.0); LYMPH % 23.9 % (20.0-40.0); MEAN CORPUSCULAR HEMOGLOBIN 31.3 pg (27.0-31.0); MEAN CORPUSCULAR HGB CONC 34.4 g/dL (33.0-37.0); MONO # 1.7 K/uL (0.0-0.8); MONO % 20.1 % (0.0-10.0); NEUT # 4.4 K/uL (1.8-7.0); NEUT % 51.7 % (50.0-75.0); PLATELET COUNT 167 K/uL (130-400); RBC 4.81 Mil/uL (4.40-5.90); WHITE BLOOD COUNT 8.6 K/uL (4.8-10.8)
--- NOTE | 2017-05-27 07:50 | CP.PCM.PCO ---
Physician Communication Note - Physician Communication Note Physician Communication Note: Please see above.
[2017-05-27] MEDS: Multiple Vitamins Tab PO SCH (09:27)
[2017-05-27] MEDS: Potassium Chloride 20 mEq ER Tab PO SCH (09:28)
[2017-05-27] MEDS: Pantoprazole 40 mg EC Tab PO SCH (09:28)
[2017-05-27] MEDS: Saccharomyces Boulardi 250 mg Cap PO SCH ×2 (09:29→17:31)
[2017-05-27 11:29] LABS: EOSINOPHIL 3 % (0-4); LYMPHOCYTE 24 % (20-40); MONOCYTE 19 % (0-10); NEUTROPHIL 53 % (50-75); PLATELET ESTIMATE NORMAL (NORMAL); REACTIVE LYMPHOCYTES 1 % (0-0); TOTAL CELLS COUNTED 100
[2017-05-27 11:30] LABS: ANISOCYTOSIS SLIGHT; LARGE PLATELETS PRESENT
--- NOTE | 2017-05-27 11:48 | PCM.PYCHPN ---
Psychiatric Progress Note - Psychiatric Progress Note Patient seen today, length of contact: 15 min Patient Chief Complaint: I am feeling depressed.' Problems Identified/Issues Discussed: Patient seen and evaluated, chart reviewed and discussed with the nurse. Pt was transferred to . He reports some improvement in his depressed mood and feelings of hopelessness and helplessness. Patient reports some improvement in the withdrawal symptoms but still reports headaches, anxiety and sweating. Patient remained isolated, confined and withdrawn. Patient appears more organized and less internally preoccupied, however, he still reports of hearing voices. Patient is compliant with medications and denies any side effects. Symptoms are improving but need more time to stabilize. Support and psychoeducation given. Medication Change: Yes (start remeron) Medical Record Reviewed: Yes Mental Status Examination - Cognitive Function Orientation: Person, Place, Situation Memory: Intact Attention: WNL Concentration: Poor Association: WNL Fund of Knowledge: Poor - Mood Mood: Depressed, Anxious - Affect Affect: Constricted, Depressed - Speech Speech: Soft - Formal Thought Process Formal Thought Process: Hallucinations, Delusions - Suicidal Ideation Suicidal Ideation: No - Homicidal Ideation Homicidal Ideation: No Goal/Treatment Plan - Goal/Treatment Plan Need for Continued Stay: Severe depression anxiety, Severe functional impairment Progress Toward Problem(s) and Goals/Treatment Plan: Major depressive disorder recurrent severe with psychotic features CBT Psychoeducation Supportive therapy, group therapy, individual therapy Olanzapine 5 g by mouth twice a day Remeron 15 mg po QHS Neurontin 100 mg by mouth 3 times a day Trazodone 50 mg by mouth daily at bedtime Alcohol use disorder severe CBT Psychoeducation Supportive therapy, individual therapy Use [place] for abstinence Alcohol withdrawal CBT Psychoeducation Supportive therapy, individual therapy Librium taper Librium PRN - Smoking Cessation Smoking Cessation Initiated: No
[2017-05-28] MEDS: Pantoprazole 40 mg EC Tab PO SCH (09:29)
[2017-05-28] MEDS: Potassium Chloride 20 mEq ER Tab PO SCH (09:30)
[2017-05-28] MEDS: Multiple Vitamins Tab PO SCH (09:30)
[2017-05-28] MEDS: Saccharomyces Boulardi 250 mg Cap PO SCH ×2 (09:31→17:40)
[2017-05-28 09:50] VITALS: O2SAT 99
--- NOTE | 2017-05-28 13:39 | PCM.PYCHPN ---
Psychiatric Progress Note - Psychiatric Progress Note Patient seen today, length of contact: 15 min Patient Chief Complaint: I am feeling less voices.' Problems Identified/Issues Discussed: Patient seen and evaluated, chart reviewed and discussed with the nurse. Pt reports some improvement in his depressed mood and feelings of hopelessness and helplessness. Patient reports some improvement in the withdrawal symptoms but still reports headaches, anxiety and sweating. Patient remained isolated, confined and withdrawn. Patient appears more organized and reports of improvement in the voices. Patient is compliant with medications and denies any side effects. Symptoms are improving but need more time to stabilize. Support and psychoeducation given. Medication Change: Yes (start remeron) Medical Record Reviewed: Yes Mental Status Examination - Cognitive Function Orientation: Person, Place, Situation Memory: Intact Attention: WNL Concentration: Poor Association: WNL Fund of Knowledge: Poor - Mood Mood: Depressed, Anxious - Affect Affect: Constricted, Depressed - Speech Speech: Soft - Formal Thought Process Formal Thought Process: No Impairment - Suicidal Ideation Suicidal Ideation: No - Homicidal Ideation Homicidal Ideation: No Goal/Treatment Plan - Goal/Treatment Plan Need for Continued Stay: Severe depression anxiety, Severe functional impairment Progress Toward Problem(s) and Goals/Treatment Plan: Major depressive disorder recurrent severe with psychotic features CBT Psychoeducation Supportive therapy, group therapy, individual therapy Olanzapine 5 g by mouth twice a day Remeron 15 mg po QHS Neurontin 100 mg by mouth 3 times a day Trazodone 50 mg by mouth daily at bedtime Alcohol use disorder severe CBT Psychoeducation Supportive therapy, individual therapy Use [place] for abstinence Alcohol withdrawal CBT Psychoeducation Supportive therapy, individual therapy Librium taper when scoring Librium PRN
--- NOTE | 2017-05-29 10:25 | PCM.PYCHPN ---
Psychiatric Progress Note - Psychiatric Progress Note Patient seen today, length of contact: 15 min Patient Chief Complaint: I am feeling little better Problems Identified/Issues Discussed: Patient seen and evaluated, chart reviewed and discussed with the nurse. Patient reports some improvement in his irritability and agitation. He also reports some improvement in depressed mood and feelings of hopelessness and helplessness. He remained isolated and withdrawn. He reports improvement in the withdrawal symptoms but still reports anxiety, headaches and sweating. He reports improvement in the hallucinations. However he remained calm and cooperative. He is taking medication and denies any side effects. Supportive therapy and psychoeducation were given Medication Change: Yes (Increase Neurontin) Medical Record Reviewed: Yes Mental Status Examination - Cognitive Function Orientation: Person, Place, Situation Memory: Intact Attention: WNL Concentration: Poor Association: WNL Fund of Knowledge: Poor - Mood Mood: Depressed, Anxious - Affect Affect: Constricted, Depressed - Speech Speech: Soft - Formal Thought Process Formal Thought Process: No Impairment - Suicidal Ideation Suicidal Ideation: No - Homicidal Ideation Homicidal Ideation: No Goal/Treatment Plan - Goal/Treatment Plan Need for Continued Stay: Severe depression anxiety, Severe functional impairment Progress Toward Problem(s) and Goals/Treatment Plan: Major depressive disorder recurrent severe without psychotic features CBT Psychoeducation Supportive therapy, group therapy, individual therapy Olanzapine 5 g by mouth twice a day Remeron 15 mg po QHS Neurontin 300 mg by mouth 2 times a day Trazodone 50 mg by mouth daily at bedtime Alcohol use disorder severe CBT Psychoeducation Supportive therapy, individual therapy Use [place] for abstinence Alcohol withdrawal CBT Psychoeducation Supportive therapy, individual therapy Librium taper Librium PRN - Smoking Cessation Smoking Cessation Initiated: No
[2017-05-29] MEDS: Multiple Vitamins Tab PO SCH (10:59)
[2017-05-29] MEDS: Saccharomyces Boulardi 250 mg Cap PO SCH ×2 (11:01→17:25)
[2017-05-29] MEDS: Pantoprazole 40 mg EC Tab PO SCH (11:08)
[2017-05-29] MEDS: Potassium Chloride 20 mEq ER Tab PO SCH (11:40)
--- NOTE | 2017-05-30 10:13 | PCM.PYCHPN ---
Psychiatric Progress Note - Psychiatric Progress Note Patient seen today, length of contact: 15 min Patient Chief Complaint: I am feeling little better Problems Identified/Issues Discussed: Patient seen and evaluated, chart reviewed and discussed with the nurse. Patient reports some improvement in his irritability and depressed mood. He denies any and feelings of hopelessness and helplessness. He remained isolated and withdrawn. He reports improvement in the withdrawal symptoms but still reports anxiety. However he remained calm and cooperative. He is taking medication and denies any side effects. He wants to go to the inpatient rehab and started calling programs. Supportive therapy and psychoeducation were given Medication Change: Yes (Increase Neurontin) Medical Record Reviewed: Yes Mental Status Examination - Cognitive Function Orientation: Person, Place, Situation Memory: Intact Attention: WNL Concentration: Poor Association: WNL Fund of Knowledge: Poor - Mood Mood: Depressed, Anxious - Affect Affect: Constricted, Depressed - Speech Speech: Soft - Formal Thought Process Formal Thought Process: No Impairment - Suicidal Ideation Suicidal Ideation: No - Homicidal Ideation Homicidal Ideation: No Goal/Treatment Plan - Goal/Treatment Plan Need for Continued Stay: Severe depression anxiety, Severe functional impairment Progress Toward Problem(s) and Goals/Treatment Plan: Major depressive disorder recurrent severe without psychotic features CBT Psychoeducation Supportive therapy, group therapy, individual therapy Olanzapine 5 Mg by mouth twice a day Remeron 15 mg po QHS Neurontin 300 mg by mouth 2 times a day Trazodone 50 mg by mouth daily at bedtime Alcohol use disorder severe CBT Psychoeducation Supportive therapy, individual therapy Use [place] for abstinence Alcohol withdrawal CBT Psychoeducation Supportive therapy, individual therapy Librium taper Librium PRN - Smoking Cessation Smoking Cessation Initiated: No
[2017-05-30] MEDS: Multiple Vitamins Tab PO SCH (10:18)
[2017-05-30] MEDS: Pantoprazole 40 mg EC Tab PO SCH (10:18)
[2017-05-30] MEDS: Saccharomyces Boulardi 250 mg Cap PO SCH ×2 (10:20→17:41)
[2017-05-30] MEDS: Potassium Chloride 20 mEq ER Tab PO SCH (12:09)
[2017-05-31] MEDS: Multiple Vitamins Tab PO SCH (10:38)
[2017-05-31] MEDS: Pantoprazole 40 mg EC Tab PO SCH (10:40)
[2017-05-31] MEDS: Saccharomyces Boulardi 250 mg Cap PO SCH ×2 (10:42→17:04)
[2017-05-31] MEDS: Potassium Chloride 20 mEq ER Tab PO SCH (14:41)
--- NOTE | 2017-05-31 23:34 | PCM.PYCHPN ---
Psychiatric Progress Note - Psychiatric Progress Note Patient seen today, length of contact: 15 min Patient Chief Complaint: I am feeling little better Problems Identified/Issues Discussed: Patient seen and evaluated, chart reviewed and discussed with the nurse. Patient reports some improvement in his irritability and depressed mood. He denies any and feelings of hopelessness and helplessness. He remained isolated and withdrawn. He reports improvement in the withdrawal symptoms but still reports anxiety.However he remained calm and cooperative. He is taking medication and denies any side effects. He wants to go to the inpatient rehab and started calling programs. Supportive therapy and psychoeducation were given Medication Change: Yes (Increase Neurontin) Medical Record Reviewed: Yes Mental Status Examination - Cognitive Function Orientation: Person, Place, Situation Memory: Intact Attention: WNL Concentration: Poor Association: WNL Fund of Knowledge: Poor - Mood Mood: Depressed, Anxious - Affect Affect: Constricted, Depressed - Speech Speech: Soft - Formal Thought Process Formal Thought Process: No Impairment - Suicidal Ideation Suicidal Ideation: No - Homicidal Ideation Homicidal Ideation: No Goal/Treatment Plan - Goal/Treatment Plan Need for Continued Stay: Severe depression anxiety, Severe functional impairment Progress Toward Problem(s) and Goals/Treatment Plan: Major depressive disorder recurrent severe without psychotic features CBT Psychoeducation Supportive therapy, group therapy, individual therapy Olanzapine 5 g by mouth twice a day Remeron 15 mg po QHS Neurontin 300 mg by mouth 2 times a day Trazodone 50 mg by mouth daily at bedtime Alcohol use disorder severe CBT Psychoeducation Supportive therapy, individual therapy Use [place] for abstinence Alcohol withdrawal CBT Psychoeducation Supportive therapy, individual therapy Librium taper Librium PRN
[2017-06-01] MEDS: Multiple Vitamins Tab PO SCH (09:54)
[2017-06-01] MEDS: Pantoprazole 40 mg EC Tab PO SCH (09:55)
[2017-06-01] MEDS: Saccharomyces Boulardi 250 mg Cap PO SCH ×2 (10:12→17:13)
[2017-06-01] MEDS: Potassium Chloride 20 mEq ER Tab PO SCH (10:13)
--- NOTE | 2017-06-01 10:36 | PCM.PYCHPN ---
Psychiatric Progress Note - Psychiatric Progress Note Patient seen today, length of contact: 15 min Patient Chief Complaint: I am feeling much better Problems Identified/Issues Discussed: Patient seen and evaluated, chart reviewed and discussed with the nurse. Patient reports improvement in his mood and feelings of hopelessness and helplessness. He started attending groups and meetings. He denies any withdrawal symptoms. He denies any hallucinations. However he wants to go to the inpatient rehab and started calling programs. He is taking medication and denies any side effects. Supportive therapy and psychoeducation were given Medication Change: Yes (Increase Neurontin) Medical Record Reviewed: Yes Mental Status Examination - Cognitive Function Orientation: Person, Place, Situation Memory: Intact Attention: WNL Concentration: WNL Association: WNL Fund of Knowledge: WNL - Mood Mood: Depressed, Anxious - Affect Affect: Constricted, Depressed - Speech Speech: Soft - Formal Thought Process Formal Thought Process: No Impairment - Suicidal Ideation Suicidal Ideation: No - Homicidal Ideation Homicidal Ideation: No Goal/Treatment Plan - Goal/Treatment Plan Need for Continued Stay: Severe depression anxiety, Severe functional impairment Progress Toward Problem(s) and Goals/Treatment Plan: Major depressive disorder recurrent severe without psychotic features CBT Psychoeducation Supportive therapy, group therapy, individual therapy Olanzapine 5 mg by mouth twice a day Remeron 15 mg po QHS Neurontin 300 mg by mouth 2 times a day Trazodone 50 mg by mouth daily at bedtime Alcohol use disorder severe CBT Psychoeducation Supportive therapy, individual therapy Use [place] for abstinence Alcohol withdrawal CBT Psychoeducation Supportive therapy, individual therapy Librium taper Librium PRN - Smoking Cessation Smoking Cessation Initiated: No
[2017-06-02 06:34] VITALS: BP 104/62; PULSE 65; RESP 19; TEMP 97.8
[2017-06-02] MEDS: Pantoprazole 40 mg EC Tab PO SCH (09:28)
[2017-06-02] MEDS: Saccharomyces Boulardi 250 mg Cap PO SCH (09:29)
[2017-06-02] MEDS: Multiple Vitamins Tab PO SCH (09:29)
[2017-06-02] MEDS: Potassium Chloride 20 mEq ER Tab PO SCH (09:30)
--- NOTE | 2017-06-02 10:38 | PCM.PYCHDC ---
Mental Status Examination - Mental Status Examination Orientation: Person, Place, Situation, Time Memory: Intact Mood: Neutral Affect: Constricted Speech: Soft Attention: WNL Concentration: WNL Association: WNL Fund of Knowledge: WNL Formal Thought Process: No Impairment Description of patient's judgement and insight: good, fair Psychotic Thoughts and Behaviors: denies any AVH Suicidal Ideation: No Current Homicidal Ideation?: No Discharge Summary - Discharge Note Reason for Hospitalization: Patient is a 36 year old male with a past medical history of cystic fibrosis and alcohol abuse, who presented to the hospital with complaints of severe abdominal pain. The patient is , has no children, unemployed (laid off) , and lives with his sister in [place]. Patient reports drinking "3 bottles or 32 gallons" of vodka daily since 2007. He denies any significant event or trauma that occurred in 2007 that triggered his drinking. Patient says he has never had a period of sobriety from alcohol since starting in 2007 and has never been to detox or rehab. Patient's last use was yesterday before coming to the hospital and drank "a lot of vodka". Patient states he used IV heroin from ages [age], and stopped when he went to alf at the age of 19. He says he has not used since and does not use drugs currently. Patient smokes 1ppd of cigarettes for "29 years". Patient denies history of psychiatric disorders and hospitalizations. Patient denies family history of psychiatric or substance abuse disorders. Patient reports he has family support. Patient says he currently "feels okay, just very tired". Consultations:: List each consultation separately and include: 1. Reason for request. 2. Findings. 3. Follow-up Summary of Hospital Course include:: 1. Description of specific treatment plan utilized for patients during their course of treatmen. 2. Summarize the time- course for resolution of acute symptoms and/or regressed behaviors. 3. Describe issues identified and worked on during hospitalization. 4. Describe medication utilized. 5. Describe medical problems identified and treated. 6. Reassessment of suicide risk Summary of Hospital Course: During the course of his stay, patient (pt) started progressively improving and he no longer remained irritable, depressed, and suicidal. His mood and anxiety symptoms were improved and he started attending groups and meetings and started socializing. Patient denied any feelings of hopelessness, helplessness, and worthlessness, denied any problem with the sleep or appetite, denied suicidal ideation or homicidal ideation. Pt denied any auditory or visual hallucinations. Some changes were made in his current medications and patient was discharged on following medications. He tolerated these medications very well and denied any side effects. He was discharged to the [facility]. - Diagnosis (1) Major depressive disorder, recurrent, severe with psychotic features Status: Acute (2) Alcohol abuse Status: Acute - Final Diagnosis (DSM 5) Condition upon Discharge: SERIOUS DSM 5: Major depressive disorder recurrent severe without psychotic features Alcohol use disorder severe Alcohol withdrawal Disposition: HOME/ ROUTINE Follow-up Treatment Plan: Education: Pt was educated and counseled about the risks and benefits of taking and not taking medications. Pt was educated and counseled about the risks of drinking and abusing drugs. Pt was educated and counseled to go to the ER or call 911 if pt develop suicidal ideation or homicidal ideation, worsening of symptoms or severe side effects of the meds. Prescriptions/Medication Reconciliation: Gabapentin [Neurontin] 300 mg PO BID #60 cap Mirtazapine [Remeron] 15 mg PO HS #30 tab Olanzapine [Zyprexa] 5 mg PO HS #30 tablet traZODone [Desyrel] 50 mg PO HS #30 tab - Smoking Cessation Smoking Cessation Medication prescribed: No - Antipsychotic Medications Pt discharged on 2 or more routine antipsychotic medications: No
== END 2017-06-02 13:02 | disposition home or self-care (01) | DRG 895 ==
LOC: C.ER 18:56 → C.9E 23:15 → C.6T 05-23 18:59 → C.5E 05-25 14:21
PROVIDERS: ADMIT Internal Medicine; ATTEND Internal Medicine
PROC: HZ2ZZZZ Detoxification Services for Substance Abuse Treatment (ICD-10-PCS; principal; 2017-05-23)
PROC: HZ52ZZZ Individual Psychotherapy for Substance Abuse Treatment, Cognitive-Behavioral (ICD-10-PCS; 2017-05-23)
PROC: HZ42ZZZ Group Counseling for Substance Abuse Treatment, Cognitive-Behavioral (ICD-10-PCS; 2017-05-23)
PROC: HZ59ZZZ Individual Psychotherapy for Substance Abuse Treatment, Supportive (ICD-10-PCS; 2017-05-23)
PROC: HZ56ZZZ Individual Psychotherapy for Substance Abuse Treatment, Psychoeducation (ICD-10-PCS; 2017-05-23)
PROC: HZ46ZZZ Group Counseling for Substance Abuse Treatment, Psychoeducation (ICD-10-PCS; 2017-05-23)
DX: F10.230 Alcohol dependence with withdrawal, uncomplicated (principal); D69.6 Thrombocytopenia, unspecified; R56.9 Unspecified convulsions; F33.3 Major depressive disorder, recurrent, severe with psychotic symptoms; E83.42 Hypomagnesemia; E87.1 Hypo-osmolality and hyponatremia; K52.9 Noninfective gastroenteritis and colitis, unspecified; J45.909 Unspecified asthma, uncomplicated; E86.0 Dehydration; F17.210 Nicotine dependence, cigarettes, uncomplicated; Y90.0 Blood alcohol level of less than 20 mg/100 ml; E87.6 Hypokalemia; B19.20 Unspecified viral hepatitis C without hepatic coma

== ENCOUNTER 2017-11-29 20:48 | Inpatient (IN) | payer MEDICAID ==
[2017-11-29 20:49] VITALS: BMI 28.3
--- NOTE | 2017-11-29 21:45 | C.PDOC ---
History Of Present Illness 37 year old male presents to the ED requesting detox for alcohol abuse. Patient states he need to go to detox or he will lose his job. Patient last use was today [employer]. Patient denies Si/HI, hallucinations, CP, SOB. Time Seen by Provider: 11/29/17 21:18 Chief Complaint (Nursing): Substance Abuse History Per: Patient History/Exam Limitations: no limitations Onset/Duration Of Symptoms: Hrs Current Symptoms Are (Timing): Still Present Suicide/Self Injury Attempted (Context): None Modifying Factor(s): Alcohol Associated Symptoms: denies: Depression, Suicidal Thoughts, Suicidal Plan Recent travel outside of the [place]: No Additional History Per: Patient, EMS Past Medical History Reviewed: Historical Data, Nursing Documentation, Vital Signs Vital Signs: Last Vital Signs Temp 98.6 F 11/29/17 21:11 Pulse 121 H 11/29/17 21:11 Resp 18 11/29/17 21:11 BP 131/74 11/29/17 21:11 Pulse Ox 96 11/29/17 21:47 - Medical History PMH: Asthma, Bipolar Disorder, Schizophrenia, Seizures (ETOH related) Denies: Diabetes, Hepatitis, HIV, HTN, Chronic Kidney Disease, Sexually Transmitted Disease Surgical History: No Surg Hx - [facility] Procedures DETOXIFICATION SERVICES FOR SUBSTANCE ABUSE TREATMENT (05/22/17) GROUP RN CLINICAL RESOURCE FOR SUBSTANCE ABUSE TREATMENT, PSYCHOEDUCATION (05/22/17) GROUP RN CLINICAL RESOURCE FOR SUBSTANCE ABUSE, COGNITIVE BEHAVIORAL (05/22/17) INDIV PSYCHOTHERAPY FOR SUBSTANCE ABUSE TREATMENT, SUPPORT (05/22/17) INDIV PSYCHOTHERAPY FOR SUBSTANCE ABUSE, COGNITIV BEHAVIORAL (05/22/17) INDIV PSYCHOTHERAPY FOR SUBSTANCE ABUSE, PSYCHOEDUCATION (05/22/17) Family History: States: Unknown Family Hx - Social History Hx Tobacco Use: No Hx Alcohol Use: Yes ([place]OD[place]) Hx Substance Use: No (DENIES) - Immunization History Hx Tetanus Toxoid Vaccination: Yes Hx Influenza Vaccination: No Hx Pneumococcal Vaccination: No Review Of Systems Constitutional: Negative for: Fever, Chills Cardiovascular: Negative for: Chest Pain, Palpitations Respiratory: Negative for: Cough, Shortness of Breath Gastrointestinal: Negative for: Nausea, Vomiting Skin: Negative for: Rash ( ) Neurological: Negative for: Weakness, Numbness Psych: Negative for: Depression, Suicidal ideation Physical Exam - Physical Exam Appears: Non-toxic, No Acute Distress, Other (intoxicated) Skin: Normal Color, Warm, Dry Head: Atraumatic, Normacephalic Eye(s): bilateral: Normal Inspection Oral Mucosa: Moist Neck: Normal ROM, Supple Chest: Symmetrical Cardiovascular: Rhythm Regular Respiratory: Normal Breath Sounds, No Rales, No Rhonchi, No Wheezing Gastrointestinal/Abdominal: Soft, No Tenderness, No Guarding, No Rebound Extremity: Normal ROM, No Tenderness, No Swelling Neurological/Psych: Oriented x3, Normal Speech Gait: Steady ED Course And Treatment - Laboratory Results Result Diagrams: 11/29/17 22:01 11/29/17 22:01 Lab Interpretation: Abnormal (K+ 3.4, ETOH 469, Elevated LFTs) O2 Sat by Pulse Oximetry: 96 (ON RA) Pulse Ox Interpretation: Normal Progress Note: Patient remains awake and alert, ambulatory with steady gait, Restless but following commands. Tolerating po fluids and ate a sandwich. Crisis evaluation pending sobriety. Medical Decision Making Medical Decision Making: Impression: alcohol detox Disposition - Disposition Disposition Time: 00:30 Condition: STABLE Forms: [facility] ([place]) - Clinical Impression Clinical Impression: Alcohol abuse - Scribe Statement The provider has reviewed the documentation as recorded by the Scribe Sonny Blair All medical record entries made by the Scribe were at my direction and personally dictated by me. I have reviewed the chart and agree that the record accurately reflects my personal performance of the history, physical exam, medical decision making, and the department course for this patient. I have also personally directed, reviewed, and agree with the discharge instructions and disposition. Physician Patient Turnover Patient Signed Over To: Ross Borges Handoff Comments: pending crisis evaluation for detox.
[2017-11-29 22:11] LABS: BASO % 0.5 % (0.0-2.0); EOS # 0.1 K/uL (0.0-0.7); EOS % 1.7 % (0.0-4.0); HEMOGLOBIN 14.7 g/dL (12.0-18.0); LYMPH # 2.4 K/uL (1.0-4.3); MEAN CELL VOLUME 84.1 fL (80.0-94.0); MEAN CORPUSCULAR HEMOGLOBIN 28.5 pg (27.0-31.0); MEAN CORPUSCULAR HGB CONC 33.9 g/dL (33.0-37.0); MEAN PLATELET VOLUME 8.3 fL (7.2-11.7); MONO # 1.1 K/uL (0.0-0.8); MONO % 13.3 % (0.0-10.0); NEUT # 4.9 K/uL (1.8-7.0); NEUT % 56.5 % (50.0-75.0); NRBC % 0.1 % (0.0-2.0); RBC 5.14 Mil/uL (4.40-5.90); RED CELL DISTRIBUTION WIDTH 15.5 % (11.5-14.5); WHITE BLOOD COUNT 8.6 K/uL (4.8-10.8)
[2017-11-29 22:15] LABS: URINE BILIRUBIN NEGATIVE (NEGATIVE); URINE BLOOD NEGATIVE (NEGATIVE); URINE CLARITY Clear (Clear); URINE COLOR Yellow (YELLOW); URINE GLUCOSE (UA) NORMAL (Normal); URINE LEUKOCYTE ESTERASE NEG Leu/uL (Negative); URINE PROTEIN NEGATIVE (NEGATIVE); URINE UROBILINOGEN NORMAL mg/dL (0.2-1.0)
[2017-11-29 22:20] LABS: ALB/GLOB RATIO 1.3 (1.0-2.1); ALBUMIN 4.5 g/dL (3.5-5.0); ALT/SGPT 231 U/L (21-72); AST/SGOT 288 U/L (17-59); BLOOD UREA NITROGEN 9 mg/dL (9-20); CALCIUM 8.6 mg/dl (8.6-10.4); GFR AFRICAN-AMERICAN > 60; GFR NON-AFRICAN AMERICAN > 60
[2017-11-29 22:32] LABS: BARBITURATES, UR NEGATIVE (NEGATIVE); BENZODIAZEPINES, UR NEGATIVE (NEGATIVE); OPIATES, UR NEGATIVE (NEGATIVE); PHENCYCLIDINE, UR NEGATIVE (NEGATIVE)
[2017-11-29] MEDS ORDERED: Potassium Chloride 20 mEq ER Tab PO STA (23:33)
[2017-11-29] MEDS ORDERED: Potassium Chloride 20 mEq ER Tab PO ONE (23:37)
--- NOTE | 2017-11-30 07:41 | PCM.BM ---
<Gina Irwin - Last Filed: 11/30/17 07:36> Treatment Plan Problems - Problems identified on initial assessmt Potential for alcohol withdrawal Date Initiated: 11/30/17 Time Initiated: 07:15 Assessment reference: NA Treatment assets and liabiliti Patient Assests: cooperative, self-reliant, ADL independent, good support system , negotiates basic needs, strong ching Patient Liabilities: relationship conflicts, substance abuse, medical problems, other (Pt states, "I have employment issue from my alcoholism".) - Milieu Protocol Maintain good personal hygiene: every shift Encourage regular showers, every shift Remind patient to perform daily oral care, every shift Assist patient to perform ADL's Maintain personal safety: every shift Educate patient to report safety concerns to staff, every shift Monitor environment for contraband/sharps Medication safety: Monitor for expected outcome, potential side effects: every shift, Assess barriers to learning: every shift, Assess readiness for medication education: every shift <Kaela Dozier - Last Filed: 11/30/17 23:35> - Diagnosis (1) Depression Status: Acute Interventions: 11/30/17 23:35 * Assess/adjust medications daily and /or as needed * See patient on an individual basis 7x/week to assess symptoms of depression * Monitor for side effects & effectiveness of medications * (2) Alcohol abuse Status: Acute Interventions: 11/30/17 23:35 * Assess 7x/week regarding severity of withdrawal * Educate regarding risks, benefits, side effects and alternatives of medications * Use Motivational Interviewing for abstinence * Use CBT for relapse prevention * Medication management for withdrawal symptoms * Encourage medication assisted treatment *
[2017-11-30] MEDS: Multiple Vitamins Tab PO SCH (09:13)
--- NOTE | 2017-11-30 14:20 | PCM.PSYCH ---
Initial Psychiatric Evaluation - Initial Psychiatric Evaluation Type of Admission: Voluntary Legal Status: Capacity Chief Complaint (in patient's own words): "Not feeling well" History of Present Illness and Precipitating Events: Pt is a 37 year-old male who is with no children, and he recently was forced to leave his former residence and stays with friends. 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 He is seeking help for alcohol use. Pt drinks 4-6 pints of alcohol daily, which is increased recently and he has been drinking "a lot" for the past 4 years. He first started drinking at 10 years old. Denies DTs but had seizures in the past. Denies drug use Psych Hx: he was in our psychiatric unit in May for depression and alcohol withdrawal and was subsequently referred to an outpatient psych program but he did not continue. No suicide attempts Past Medical Hx: Asthma. Family Hx: Pt says that everyone in his family has psychiatric issues and alcohol issues Current Medications: Active Medications Generic Name Dose Route Start Last Admin Trade Name Freq PRN Reason Stop Dose Admin Clonidine HCl 0.1 mg 11/30/17 06:29 Catapres PO Q4H PRN Symptoms of alcohol withdrawl Folic Acid 1 mg 11/30/17 10:00 11/30/17 09:13 Folic Acid PO 1 mg DAILY DAFNE Administration Hydroxyzine HCl 25 mg 11/30/17 06:33 Atarax PO Q6H PRN Anxiety Lorazepam 1 mg 11/30/17 06:29 Ativan PO Q4H PRN Symptoms of alcohol withdrawl Lorazepam 2 mg 11/30/17 10:00 11/30/17 09:13 Ativan PO 12/04/17 09:59 2 mg Q6H DAFNE Administration Taper Multivitamins 1 tab 11/30/17 10:00 11/30/17 09:13 Hexavitamin PO 1 tab DAILY DAFNE Administration Nicotine 1 patch 11/30/17 10:30 11/30/17 10:56 Nicoderm Cq TD 1 patch DAILY DAFNE Administration Thiamine HCl 100 mg 11/30/17 10:00 11/30/17 09:13 Vitamin B1 Tab PO 100 mg DAILY DAFNE Administration Trazodone HCl 50 mg 11/30/17 06:29 Desyrel PO HS PRN Insomnia Past Psychiatric History - Past Psychiatric History Previous Treatment History: Inpatient Pertinent Medical Hx (Current Medical&Sleep Prob, Allergies): Allergies Allergy/AdvReac Type Severity Reaction Status Date / Time No Known Allergies Allergy Verified 11/29/17 21:15 No Known Home Med 11/29/17 Review of Systems - Neurological Neurological: UNREMARKABLE - Psychiatric Psychiatric: Abnormal Sleep Pattern, Anxiety, Difficulty Concentrating, Irritability. absent: Hallucinations, Homicidal Ideation, Suicidal Ideation Mental Status Examination - Personal Presentation Personal Presentation: Looks stated age - Affect Affect: Constricted - Motor Activity Motor Activity: Calm - Reliability in Providing Information Reliability in Providing Information: Fair - Speech Speech: Organized - Mood Mood: Depressed, Anxious - Formal Thought Process Formal Thought Process: No Impairment - Cognitive Functions Orientation: Person, Place, Situation, Time Sensorium: Alert Attention/Concentration: Attentive Abstract Thinking: [place] Estimate of Intelligence: Average Judgement: Imparied, as evidence by: Poor judgement, Intact, as evidence by: Insight regarding need for hospitalization Memory: Recent intact, as evidence by: Ability to recall events of the day, Remote impaired as evidenced by: Inability to recall sig life events - Risk Risk: Seizure, Withdrawal, Diminished functioning - Strength & Assets Inventory Strength & Assets Inventory: Cooperative DSM 5 DX - DSM 5 DSM 5 Diagnosis: Alcohol withdrawal Alcohol Use Disorder, severe Tobacco Use Disorder, severe Depressive d/o unspecified Personality d/o -unspecified - Recommended/Plan of Treatment Treatment Recommendations and Plan of Treatment: Taper with Ativan Gabapentin for augmentation if needed As needed medications All risks, benefits and alternatives of the meds discussed, and the pt agreed and understood. Attend groups and activities Supportive therapy and psychoeducation [place] for abstinence CBT for relapse prevention Encourage MAT Refer to rehab or IOP, and self-help groups Smoking cessation with [place] Nicotine patch if needed 33 min Projected ELOS: 4-5 days Prognosis: good w treatment
[2017-12-01] MEDS: Multiple Vitamins Tab PO SCH (09:51)
--- NOTE | 2017-12-01 10:08 | PCM.PYCHDC ---
Mental Status Examination - Mental Status Examination Orientation: Person Discharge Summary - Discharge Note Consultations:: List each consultation separately and include: 1. Reason for request. 2. Findings. 3. Follow-up Summary of Hospital Course include:: 1. Description of specific treatment plan utilized for patients during their course of treatmen. 2. Summarize the time- course for resolution of acute symptoms and/or regressed behaviors. 3. Describe issues identified and worked on during hospitalization. 4. Describe medication utilized. 5. Describe medical problems identified and treated. 6. Reassessment of suicide risk Summary of Hospital Course: Pt is a 37 year-old male who is with no children, and he recently was forced to leave his former residence and stays with friends. He works as a superintendent renting managing for the city. He is seeking help for alcohol use. Pt drinks 4-6 pints of alcohol daily, which is increased recently and he has been drinking "a lot" for the past 4 years. He first started drinking at 10 years old. Denies DTs but had seizures in the past. Denies drug use Psych Hx: he was in our psychiatric unit in May for depression and alcohol withdrawal and was subsequently referred to an outpatient psych program but he did not continue. No suicide attempts Past Medical Hx: Asthma. Family Hx: Pt says that everyone in his family has psychiatric issues and alcohol issues - Diagnosis (1) Depression Current Visit: Yes Status: Acute (2) Alcohol abuse Current Visit: Yes Status: Acute - Final Diagnosis (DSM 5) Condition upon Discharge: FAIR Disposition: HOME/ ROUTINE Follow-up Treatment Plan: Taper with Ativan Gabapentin for augmentation if needed As needed medications All risks, benefits and alternatives of the meds discussed, and the pt agreed and understood. Attend groups and activities Supportive therapy and psychoeducation [place] for abstinence CBT for relapse prevention Encourage MAT Refer to rehab or IOP, and self-help groups Smoking cessation with [place] Nicotine patch if needed 33 min
[2017-12-01 10:18] VITALS: BP 135/88; PULSE 98; RESP 20; TEMP 98.8; O2SAT 98
== END 2017-12-01 11:00 | disposition left against medical advice (07) | DRG 749 ==
LOC: C.ER 20:48 → C.7D 11-30 06:10
PROVIDERS: ADMIT Psychiatry & Neurology Psychiatry; ATTEND Psychiatry & Neurology Psychiatry
PROC: HZ2ZZZZ Detoxification Services for Substance Abuse Treatment (ICD-10-PCS; principal; 2017-11-30)
DX: F10.230 Alcohol dependence with withdrawal, uncomplicated (principal); F20.9 Schizophrenia, unspecified; F10.220 Alcohol dependence with intoxication, uncomplicated; Y90.8 Blood alcohol level of 240 mg/100 ml or more; F17.200 Nicotine dependence, unspecified, uncomplicated; F31.9 Bipolar disorder, unspecified; J45.909 Unspecified asthma, uncomplicated

== ENCOUNTER 2018-02-10 19:06 | Inpatient (IN) | payer MEDICAID ==
[2018-02-10 19:06] VITALS: BMI 28.3
--- NOTE | 2018-02-10 19:21 | C.PDOC ---
History Of Present Illness 37 year old male presents to the emergency department with complaints of hearing voices. Patient states that he has been drinking recently. He denies suicidal or homicidal ideation. He reports that he has not been compliant with his psychiatric medications for the last three months. Time Seen by Provider: 02/10/18 19:20 Chief Complaint (Nursing): Medical Clearance History Per: Patient History/Exam Limitations: no limitations Onset/Duration Of Symptoms: Days Past Medical History Reviewed: Historical Data, Nursing Documentation, Vital Signs Vital Signs: Last Vital Signs Temp 98.9 F 02/10/18 19:10 Pulse 98 H 02/10/18 19:10 Resp 18 02/10/18 19:10 BP 138/95 H 02/10/18 19:10 Pulse Ox 96 02/10/18 19:10 - Medical History PMH: Asthma, Bipolar Disorder, Schizophrenia, Seizures (ETOH related) Denies: Diabetes, Hepatitis, HIV, HTN, Chronic Kidney Disease, Sexually Transmitted Disease Surgical History: No Surg Hx - [facility] DETOXIFICATION SERVICES FOR SUBSTANCE ABUSE TREATMENT (11/30/17) GROUP [employer] FOR SUBSTANCE ABUSE TREATMENT, PSYCHOEDUCATION (05/22/17) GROUP [employer]ATE [employer]ER FOR SUBSTANCE ABUSE, COGNITIVE BEHAVIORAL (05/22/17) INDIV PSYCHOTHERAPY FOR SUBSTANCE ABUSE TREATMENT, SUPPORT (05/22/17) INDIV PSYCHOTHERAPY FOR SUBSTANCE ABUSE, COGNITIV BEHAVIORAL (05/22/17) INDIV PSYCHOTHERAPY FOR SUBSTANCE ABUSE, PSYCHOEDUCATION (05/22/17) Family History: States: No Known Family Hx - Social History Hx Tobacco Use: No Hx Alcohol Use: Yes Hx Substance Use: No - Immunization History Hx Tetanus Toxoid Vaccination: No Hx Influenza Vaccination: No Hx Pneumococcal Vaccination: No Review Of Systems Neurological: Positive for: Other (hallucinations) Psych: Positive for: Psychosis. Negative for: Suicidal ideation Physical Exam - Physical Exam Appears: Non-toxic, No Acute Distress Skin: Warm, Dry Head: Normacephalic Eye(s): bilateral: Normal Inspection, PERRL, EOMI Oral Mucosa: Moist Neck: Trachea Midline, Supple Chest: Symmetrical, No Tenderness Cardiovascular: Rhythm Regular, No Murmur Respiratory: No Rales, No Rhonchi, No Wheezing Neurological/Psych: Oriented x3, Normal Speech, Normal Cognition ED Course And Treatment - Laboratory Results Result Diagrams: 02/10/18 19:52 02/10/18 19:52 O2 Sat by Pulse Oximetry: 96 (RA) Pulse Ox Interpretation: Normal Progress Note: Plan: Alcohol Serum. CMP. Drug Screen. Magnesium. Phosphorus. CBC. Zofran 4mg PO. Urinalysis. [facility] Crisis Eval Disposition Counseled Patient/Family Regarding: Studies Performed, Diagnosis - Disposition Disposition Time: 19:21 Condition: FAIR Forms: [facility] ([place]) - Clinical Impression Clinical Impression: Alcohol abuse, Alcohol intolerance - Scribe Statement The provider has reviewed the documentation as recorded by the Scribe (Bernabe Lindsey) Provider Attestation: All medical record entries made by the Scribe were at my direction and personally dictated by me. I have reviewed the chart and agree that the record accurately reflects my personal performance of the history, physical exam, medical decision making, and the department course for this patient. I have also personally directed, reviewed, and agree with the discharge instructions and disposition. Physician Patient Turnover Patient Signed Over To: Kenny Carranza Handoff Comments: pending detox bed
[2018-02-10 19:39] LABS: URINE BILIRUBIN 2+ (NEGATIVE); URINE BLOOD 1+ (NEGATIVE); URINE CLARITY Hazy (Clear); URINE COLOR Amber (YELLOW); URINE GLUCOSE (UA) 1+ mg/dL (Normal); URINE LEUKOCYTE ESTERASE NEG Leu/uL (Negative); URINE PROTEIN 3+ mg/dL (NEGATIVE)
[2018-02-10 19:49] LABS: BARBITURATES, UR NEGATIVE (NEGATIVE); BENZODIAZEPINES, UR NEGATIVE (NEGATIVE); OPIATES, UR NEGATIVE (NEGATIVE); PHENCYCLIDINE, UR NEGATIVE (NEGATIVE)
[2018-02-10 19:56] LABS: BASO % 0.6 % (0.0-2.0); EOS # 0.1 K/uL (0.0-0.7); EOS % 1.1 % (0.0-4.0); HEMOGLOBIN 14.3 g/dL (12.0-18.0); LYMPH # 1.3 K/uL (1.0-4.3); LYMPH % 19.3 % (20.0-40.0); MEAN CORPUSCULAR HEMOGLOBIN 30.4 pg (27.0-31.0); MEAN CORPUSCULAR HGB CONC 34.3 g/dL (33.0-37.0); MEAN PLATELET VOLUME 8.3 fL (7.2-11.7); MONO # 0.7 K/uL (0.0-0.8); MONO % 10.5 % (0.0-10.0); NEUT # 4.7 K/uL (1.8-7.0); NEUT % 68.5 % (50.0-75.0); NRBC % 0.1 % (0.0-2.0); RBC 4.71 Mil/uL (4.40-5.90); WHITE BLOOD COUNT 6.9 K/uL (4.8-10.8)
[2018-02-10 20:04] LABS: MEAN CELL VOLUME 88.5 fL (80.0-94.0)
[2018-02-10 20:08] LABS: ALBUMIN 4.2 g/dL (3.5-5.0); ALT/SGPT 165 U/L (21-72); AST/SGOT 414 U/L (17-59); BLOOD UREA NITROGEN 9 mg/dL (9-20); CALCIUM 8.8 mg/dl (8.6-10.4); GFR NON-AFRICAN AMERICAN > 60
[2018-02-11] MEDS ORDERED: Potassium Chloride 20 mEq ER Tab PO STA (07:34)
[2018-02-11] MEDS ORDERED: Potassium Chloride 20 mEq ER Tab PO ONE (07:43)
[2018-02-11] MEDS ORDERED: Aluminum Hydroxide/Magnesium Hydroxide Susp (30 mL) PO PRN (14:20)
--- NOTE | 2018-02-11 14:37 | PCM.BM ---
<Gina Irwin - Last Filed: 02/11/18 14:36> Treatment Plan Problems - Problems identified on initial assessmt Potential for alcohol withdrawl Date Initiated: 02/11/18 Time Initiated: 14:37 Assessment reference: NA Status: Active Treatment assets and liabiliti Patient Assests: cooperative, self-reliant, ADL independent, good support system, negotiates basic needs, strong ching Patient Liabilities: financial problems, relationship conflicts, substance abuse, medical problems - Milieu Protocol Maintain good personal hygiene: every shift Encourage regular showers, every shift Remind patient to perform daily oral care, every shift Assist patient to perform ADL's Maintain personal safety: every shift Educate patient to report safety concerns to staff, every shift Monitor environment for contraband/sharps Medication safety: Monitor for expected outcome, potential side effects: every shift, Assess barriers to learning: every shift, Assess readiness for medication education: every shift <Kaela Dozier - Last Filed: 02/12/18 23:17> - Diagnosis (1) Alcohol use disorder, severe, dependence Status: Acute Interventions: 02/12/18 23:17 * Assess 7x/week regarding severity of withdrawal * Educate regarding risks, benefits, side effects and alternatives of medications * Use Motivational Interviewing for abstinence * Use CBT for relapse prevention * Medication management for withdrawal symptoms * Encourage medication assisted treatment *
[2018-02-11] MEDS: Multiple Vitamins Tab PO SCH (15:07)
[2018-02-12] MEDS: Multiple Vitamins Tab PO SCH (10:52)
[2018-02-12] MEDS: Magnesium Oxide 400 mg Tab UD PO SCH ×2 (10:52→13:47)
[2018-02-12 12:08] LABS: ALB/GLOB RATIO 1.1 (1.0-2.1); ALBUMIN 3.5 g/dL (3.5-5.0); ALT/SGPT 182 U/L (21-72); AST/SGOT 465 U/L (17-59); BLOOD UREA NITROGEN 10 mg/dL (9-20); CALCIUM 9.2 mg/dl (8.6-10.4); GFR NON-AFRICAN AMERICAN > 60
--- NOTE | 2018-02-12 15:19 | PCM.PSYCH ---
Addendum entered and electronically signed by Kaela Dozier MD 02/12/18 23:18: I attest that I have interviewed the pt and reviewed the chart and participated and agree with the following assessment and plan. Original Note: Initial Psychiatric Evaluation - Initial Psychiatric Evaluation Type of Admission: Voluntary Legal Status: Capacity Chief Complaint (in patient's own words): "I drink." History of Present Illness and Precipitating Events: Patient was extremely lethargic and borderline sedated when attempting to interview. Per nursing, this is the most awake he has been all day. Pt is a 37 year-old male who is with no children, and he recently was forced to leave his former residence and stays with friends. He identifies as homeless currently as he was kicked out of the group home. 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 He is seeking help for alcohol use. Pt drinks 7 pints of vodka daily, which is increased recently and he has been drinking "a lot" for the past 4 years. He first started drinking at 10 years old. Denies DTs but had seizures in the past. Denies drug use. Admits 1 ppd tobacco use. Psych Hx: he was in our psychiatric unit in May for depression and alcohol withdrawal and was subsequently referred to an outpatient psych program but he did not continue. He was last in detox in November of this year. No suicide attempts Past Medical Hx: Asthma. Family Hx: Pt says that everyone in his family has psychiatric issues and alcohol issues. ED: BAL - 378, UDS negative. Started on Ativan. Current Medications: Active Medications Generic Name Dose Route Start Last Admin Trade Name Freq PRN Reason Stop Dose Admin Al Hydrox/Mg Hydrox/Simethicone 30 ml 02/11/18 14:20 Maalox 30 Ml PO TID PRN Indigestion / Heartburn Clonidine HCl 0.1 mg 02/12/18 08:35 Catapres PO Q4H PRN BP>150/100 or P>100 Folic Acid 1 mg 02/11/18 14:30 02/12/18 10:52 Folic Acid PO 1 mg DAILY DAFNE Administration Gabapentin 400 mg 02/11/18 18:00 02/12/18 13:48 Neurontin PO 400 mg TID DAFNE Administration Haloperidol 5 mg 02/12/18 08:30 02/12/18 09:22 Haldol PO 5 mg Q4H PRN Administration severe agitation Hydroxyzine HCl 25 mg 02/11/18 22:34 02/11/18 22:37 Atarax PO 25 mg Q8 PRN Administration Anxiety Ibuprofen 400 mg 02/11/18 14:19 Motrin Tab PO Q6 PRN Pain, moderate (4-7) Lactulose 20 gm 02/12/18 22:00 Enulose PO 02/12/18 22:01 ONCE ONE Lorazepam 2 mg 02/12/18 08:32 02/12/18 14:16 Ativan PO 02/17/18 14:29 2 mg Q4H DAFNE Administration Taper Lorazepam 1 mg 02/12/18 08:34 02/12/18 09:22 Ativan PO 1 mg Q4H PRN Administration Alcohol withdrawal Lorazepam 1 mg 02/12/18 08:35 Ativan IM Q6H PRN Severe anxiety or withdrawal Magnesium Oxide 400 mg 02/12/18 10:00 02/12/18 13:47 Mag-Ox PO 02/15/18 10:01 400 mg TID DAFNE Administration Multivitamins 1 tab 02/11/18 14:30 02/12/18 10:52 Hexavitamin PO 1 tab DAILY DAFNE Administration Ondansetron HCl 4 mg 02/11/18 14:20 02/11/18 14:48 Zofran Tab PO 4 mg Q8 PRN Administration Nausea/Vomiting Thiamine HCl 100 mg 02/11/18 14:30 02/12/18 10:52 Vitamin B1 Tab PO 100 mg DAILY DAFNE Administration Trazodone HCl 100 mg 02/12/18 08:45 Desyrel PO HS PRN Insomnia Past Psychiatric History - Past Psychiatric History Pertinent Medical Hx (Current Medical&Sleep Prob, Allergies): Allergies Allergy/AdvReac Type Severity Reaction Status Date / Time No Known Allergies Allergy Verified 02/10/18 19:15 No Known Home Med 11/29/17 Review of Systems - Psychiatric Psychiatric: Abnormal Sleep Pattern, Anxiety, Difficulty Concentrating, Irritability. absent: Hallucinations, Homicidal Ideation, Suicidal Ideation Mental Status Examination - Personal Presentation Personal Presentation: Looks stated age - Affect Affect: Constricted - Motor Activity Motor Activity: Calm - Reliability in Providing Information Reliability in Providing Information: Other Additional comments: Poor, due to sedation and uncooperation - Speech Speech: Organized - Mood Mood: Anxious - Formal Thought Process Formal Thought Process: No Impairment - Cognitive Functions Orientation: Person, Place, Situation, Time Sensorium: Lethargic Attention/Concentration: Easily distracted Estimate of Intelligence: Average Judgement: Imparied, as evidence by: Poor judgement, Intact, as evidence by: Insight regarding need for hospitalization Memory: Recent intact, as evidence by: Ability to recall events of the day, Remote impaired as evidenced by: Inability to recall sig life events - Risk Risk: Seizure, Withdrawal, Diminished functioning DSM 5 DX - DSM 5 DSM 5 Diagnosis: Alcohol use disorder - severe Alcohol withdrawal Tobacco use disorder depressive disorder, unspecified - Recommended/Plan of Treatment Treatment Recommendations and Plan of Treatment: Taper with Ativan Gabapentin for augmentation if needed As needed medications All risks, benefits and alternatives of the meds discussed, and the pt agreed and understood. Attend groups and activities Supportive therapy and psychoeducation WA for abstinence CBT for relapse prevention Encourage MAT Refer to rehab or IOP, and self-help groups Smoking cessation with WA Nicotine patch if needed-patient currently refusing Lactulose for elevated ammonium Mag Ox for low Mg Monitor both with AM labs 30 min - Smoking Cessation Smoking Cessation Initiated: No Reason for not providing: patient refusing
[2018-02-12] MEDS: Magnesium Sulfate 1 gm in D5W 1 GM/100 ML BAG IVPB SCH ×4 (19:14→20:24)
[2018-02-12 19:28] VITALS: RESP 20
[2018-02-12] MEDS: Sodium Chloride 0.9% 1,000 ML IV SCH (20:24)
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
[2018-02-13] MEDS: Sodium Chloride 0.9% 1,000 ML IV SCH ×4 (01:20→16:15)
[2018-02-13 08:08] LABS: BASO % 0.6 % (0.0-2.0); EOS # 0.1 K/uL (0.0-0.7); HEMOGLOBIN 13.1 g/dL (12.0-18.0); LYMPH % 18.5 % (20.0-40.0); MEAN CELL VOLUME 89.9 fL (80.0-94.0); MEAN CORPUSCULAR HEMOGLOBIN 30.8 pg (27.0-31.0); MEAN CORPUSCULAR HGB CONC 34.3 g/dL (33.0-37.0); MEAN PLATELET VOLUME 10.6 fL (7.2-11.7); MONO # 0.5 K/uL (0.0-0.8); MONO % 9.7 % (0.0-10.0); NEUT # 3.8 K/uL (1.8-7.0); NEUT % 70.2 % (50.0-75.0); RBC 4.24 Mil/uL (4.40-5.90); RED CELL DISTRIBUTION WIDTH 14.1 % (11.5-14.5); WHITE BLOOD COUNT 5.4 K/uL (4.8-10.8)
[2018-02-13 08:32] LABS: ALBUMIN 3.6 g/dL (3.5-5.0); ALT/SGPT 158 U/L (21-72); AST/SGOT 338 U/L (17-59); BLOOD UREA NITROGEN 8 mg/dL (9-20); CALCIUM 9.1 mg/dl (8.6-10.4); GFR NON-AFRICAN AMERICAN > 60
[2018-02-13] MEDS: Multiple Vitamins Tab PO SCH (09:40)
[2018-02-13] MEDS ORDERED: Magnesium Sulfate 1 gm in D5W 1 GM/100 ML BAG IVPB ONE (11:00)
--- NOTE | 2018-02-13 11:39 | CP.PCM.PN ---
<Nilay Long - Last Filed: 02/13/18 13:54> Subjective - Date & Time of Evaluation Date of Evaluation: 02/13/18 Time of Evaluation: 11:39 - Subjective Subjective: Nilay Long PGY-1, Medicine progress note for Dr. Nunez Pt seen and examined at bedside. Pt is sleeping, but was able to answer my questions when I awoke him. Today he states that he is tired, but overall he is resting comfortably. He was somewhat lethargic but was able to carry on a full conversation. He reports having two bowel movements after taking lactulose and some ABD pain with eating. He denies headache, vision changes, fever, chills, CP, SOB, hematochezia, melena, vomiting or diarrhea. A full ROS was unobtainable because pt was easily agitated. Objective - Vital Signs/Intake and Output Vital Signs (last 24 hours): Temp Pulse Resp BP Pulse Ox 98.4 F 78 20 107/72 100 02/13/18 08:00 02/13/18 08:00 02/13/18 08:00 02/13/18 08:00 02/13/18 08:00 - Medications Medications: Current Medications Al Hydrox/Mg Hydrox/Simethicone (Maalox 30 Ml) 30 ml PO TID PRN PRN Reason: Indigestion / Heartburn Clonidine HCl (Catapres) 0.1 mg PO Q4H PRN PRN Reason: BP>150/100 or P>100 Last Admin: 02/12/18 15:46 Dose: 0.1 mg Folic Acid (Folic Acid) 1 mg PO DAILY [facility] Last Admin: 02/13/18 09:40 Dose: 1 mg Gabapentin (Neurontin) 400 mg PO TID [facility] Last Admin: 02/13/18 09:40 Dose: 400 mg Haloperidol (Haldol) 5 mg PO Q4H PRN PRN Reason: severe agitation Last Admin: 02/12/18 15:46 Dose: 5 mg Hydroxyzine HCl (Atarax) 25 mg PO Q8 PRN PRN Reason: Anxiety Last Admin: 02/12/18 15:46 Dose: 25 mg Sodium Chloride (Sodium Chloride 0.9%) 1,000 mls @ 125 mls/hr IV .Q8H [facility] Last Admin: 02/13/18 09:32 Dose: Not Given Magnesium Sulfate/Dextrose (Magnesium Sulfate 1 Gm/100 Ml D5w) 1 gm in 100 mls @ 100 mls/hr IVPB ONCE ONE Stop: 02/13/18 11:59 Last Admin: 02/13/18 11:33 Dose: 100 mls/hr Ibuprofen (Motrin Tab) 400 mg PO Q6 PRN PRN Reason: Pain, moderate (4-7) Lactulose (Enulose) 30 gm PO BID [facility] Last Admin: 02/13/18 11:33 Dose: 30 gm Lorazepam (Ativan) 2 mg PO Q4H [facility]; Taper Stop: 02/17/18 14:29 Last Admin: 02/13/18 09:41 Dose: 2 mg Lorazepam (Ativan) 1 mg PO Q4H PRN PRN Reason: Alcohol withdrawal Last Admin: 02/12/18 15:45 Dose: 1 mg Lorazepam (Ativan) 1 mg IM Q6H PRN PRN Reason: Severe anxiety or withdrawal Multivitamins (Hexavitamin) 1 tab PO DAILY [facility] Last Admin: 02/13/18 09:40 Dose: 1 tab Ondansetron HCl (Zofran Tab) 4 mg PO Q8 PRN PRN Reason: Nausea/Vomiting Last Admin: 02/11/18 14:48 Dose: 4 mg Thiamine HCl (Vitamin B1 Tab) 100 mg PO DAILY [facility] Last Admin: 02/13/18 09:40 Dose: 100 mg Trazodone HCl (Desyrel) 100 mg PO HS PRN PRN Reason: Insomnia - Labs Labs: 02/13/18 07:47 02/13/18 07:47 - Constitutional Appears: Non-toxic, No Acute Distress - Head Exam Head Exam: NORMAL INSPECTION, NORMOCEPHALIC - Eye Exam Eye Exam: Conjunctival injection (bilaterally), EOMI, Scleral icterus (minimal) - ENT Exam ENT Exam: Mucous Membranes Moist - Neck Exam Neck Exam: Normal Inspection - Respiratory Exam Respiratory Exam: Clear to Ausculation Bilateral, NORMAL BREATHING PATTERN. absent: Rales, Rhonchi, Wheezes, Respiratory Distress - Cardiovascular Exam Cardiovascular Exam: REGULAR RHYTHM, +S1, +S2 - GI/Abdominal Exam GI & Abdominal Exam: Distended, Normal Bowel Sounds, Organomegaly (hepatosplenomegaly with liver edge palpable 6 cm from the costophrenic angle; nontender). absent: Guarding, Rigid, Tenderness, Hernia Additional comments: (-) caput medusae - Extremities Exam Extremities Exam: Normal Inspection. absent: Pedal Edema, Tenderness Additional comments: (+)mild tremor in bilateral outstretched hands - Back Exam Back Exam: NORMAL INSPECTION - Neurological Exam Neurological Exam: Oriented x3. absent: Altered Additional comments: (-) asterixis - Psychiatric Exam Psychiatric exam: Normal Affect, Normal Mood Additional comments: lethargic but arousable, and able to answer all of my questions appropriately - Skin Skin Exam: Dry, Warm Additional comments: (+) mild jaundice Assessment and Plan - Assessment and Plan (Free Text) Assessment: This is a 37 y/o male with PMH of alcohol disorder, depression and psychiatric disorders was admitted to the detox floor (02/10) for alcohol withdrawal symptoms. On 02/12, a consult for medical management was placed for low level of magnesium (0.9). Plan: Hypomagnesemia - Currently 1.6, up from 0.9; s/p 2 grams of MgSulfate - will administer 1 more gram of magnesium sulfate IVPB - EKG showed NSR at 79; QTc prolongation at 479 - will repeat EKG - Potassium is wnl (4.1) - will continue to monitor - Admitted to Telemetry, Medicine floor - Continue to monitor AMS (lethargy); likely due to alcohol withdrawal medications vs hyperammonemia - Pt is actively receiving ativan taper as per detox team - ammonia level is 93; s/p Lactulose 20 mg PO once - Lactulose 30 gm PO BID; goal of 2-3 bowel movements per day - pt without asterixis; likely not hepatic encephalopathy Transaminitis; likely due to alcoholic hepatic steatosis vs cirrhosis - AST/ALT/ALP is downtrending; 338/158/327 - t-bili is uptrending, 4.4 up from 3.9 - abdominal CT (05/2017) showed hepatosplenomegaly with fatty infiltration of the liver - will obtain complete abdominal US; f/u results - f/u with INR Alcohol disorder/Alcohol withdrawal syndrome - continue management as per psych - neuro check Q4hrs - continue to monitor patient Case was reviewed and discussed with attending physician, Dr. Mayra Long PGY-1 <Nunez,Peter H - Last Filed: 02/13/18 16:52> Objective - Vital Signs/Intake and Output Vital Signs (last 24 hours): Temp Pulse Resp BP Pulse Ox 98.4 F 83 20 107/72 100 02/13/18 08:00 02/13/18 16:00 02/13/18 08:00 02/13/18 08:00 02/13/18 08:00 - Medications Medications: Current Medications Al Hydrox/Mg Hydrox/Simethicone (Maalox 30 Ml) 30 ml PO TID PRN PRN Reason: Indigestion / Heartburn Clonidine HCl (Catapres) 0.1 mg PO Q4H PRN PRN Reason: BP>150/100 or P>100 Last Admin: 02/12/18 15:46 Dose: 0.1 mg Folic Acid (Folic Acid) 1 mg PO DAILY [facility] Last Admin: 02/13/18 09:40 Dose: 1 mg Gabapentin (Neurontin) 400 mg PO TID [facility] Last Admin: 02/13/18 14:13 Dose: 400 mg Haloperidol (Haldol) 5 mg PO Q4H PRN PRN Reason: severe agitation Last Admin: 02/12/18 15:46 Dose: 5 mg Hydroxyzine HCl (Atarax) 25 mg PO Q8 PRN PRN Reason: Anxiety Last Admin: 02/12/18 15:46 Dose: 25 mg Sodium Chloride (Sodium Chloride 0.9%) 1,000 mls @ 125 mls/hr IV .Q8H [facility] Last Admin: 02/13/18 14:13 Dose: 125 mls/hr Ibuprofen (Motrin Tab) 400 mg PO Q6 PRN PRN Reason: Pain, moderate (4-7) Lactulose (Enulose) 30 gm PO BID [facility] Last Admin: 02/13/18 11:33 Dose: 30 gm Lorazepam (Ativan) 2 mg PO Q6H [facility]; Taper Stop: 02/17/18 14:29 Last Admin: 02/13/18 14:13 Dose: 2 mg Lorazepam (Ativan) 1 mg PO Q4H PRN PRN Reason: Alcohol withdrawal Last Admin: 02/12/18 15:45 Dose: 1 mg Lorazepam (Ativan) 1 mg IM Q6H PRN PRN Reason: Severe anxiety or withdrawal Multivitamins (Hexavitamin) 1 tab PO DAILY [facility] Last Admin: 02/13/18 09:40 Dose: 1 tab Ondansetron HCl (Zofran Tab) 4 mg PO Q8 PRN PRN Reason: Nausea/Vomiting Last Admin: 02/11/18 14:48 Dose: 4 mg Thiamine HCl (Vitamin B1 Tab) 100 mg PO DAILY [facility] Last Admin: 02/13/18 09:40 Dose: 100 mg Trazodone HCl (Desyrel) 100 mg PO HS PRN PRN Reason: Insomnia - Labs Labs: 02/13/18 07:47 02/13/18 07:47 PT 13.3 SECONDS (9.7-12.2) H 02/13/18 14:03 INR 1.2 02/13/18 14:03 Attending/Attestation - Attestation I have personally seen and examined this patient.: Yes I have fully participated in the care of the patient.: Yes I have reviewed all pertinent clinical information, including history, physical exam and plan: Yes Notes (Text): 02/13/18 16:49 Medical attending: Patient was seen and I tried to examine him today but he was irritated and asked me to leave. As mentioned previously he was moved out of the detox unit and to the medical floor after he was found to have a low Mg level as well as ammonia and appearing dehydrated. This morning he appeared somulent until he became upset that I kept asking the same questions (since he was not responding to my questions, I am now thinking that he maybe uninterested in participating in his own care ) Reguardless he should be getting lactulose 30 BID, he is having BMs they say Mg is better, will recivie a little more IV Mg, the EKG looks better than the previous. Fransisco Nunez
--- NOTE | 2018-02-13 12:18 | PCM.PYCHPN ---
Psychiatric Progress Note - Psychiatric Progress Note Patient seen today, length of contact: 15 min Patient Chief Complaint: "I am fine. Can I go home?" Problems Identified/Issues Discussed: The pt is seen, chart reviewed, case discussed with staff. The pt is compliant with medications and reports no side-effects. Symptoms are improving but needs more time to stabilize. He is still lethargic and withdrawing and not ready Support given, psycho-education provided. After care discussed briefly Ammonia is still high Medication Change: Yes (detox changes daily) Medical Record Reviewed: Yes Mental Status Examination - Cognitive Function Orientation: Person, Place, Situation, Time Memory: Impaired Attention: Poor - Mood Mood: Anxious - Affect Affect: Constricted - Speech Speech: Appropriate - Formal Thought Process Formal Thought Process: No Impairment - Suicidal Ideation Suicidal Ideation: No - Homicidal Ideation Homicidal Ideation: No Goal/Treatment Plan - Goal/Treatment Plan Need for Continued Stay: Discharge may exacerbated symptoms, Severe functional impairment Progress Toward Problem(s) and Goals/Treatment Plan: Continue medications Monitor labs Support and psychoeducation daily After care planning by YONY
[2018-02-13 14:17] LABS: INR 1.2; PROTHROMBIN TIME 13.3 SECONDS (9.7-12.2)
[2018-02-13 16:32] VITALS: PULSE 83
[2018-02-13 17:26] VITALS: BP 103/65; TEMP 98.5; O2SAT 97
--- NOTE | 2018-02-14 08:24 | US ---
Date of service: 02/13/2018 HISTORY: distenstion, hepatosplenomegaly, tansaminitis COMPARISON: None. TECHNIQUE: Sonographic evaluation of the abdomen. FINDINGS: LIVER: Measures 18.1 cm. Diffusely increased echogenicity of the liver parenchyma. Consistent with fatty infiltration. No focal mass. No intrahepatic biliary ductal dilatation. Normal hepatopetal portal venous flow. Smooth contour. GALLBLADDER: No cholelithiasis. Nonspecific mural thickening. Negative sonographic Loyola sign. Nonspecific findings. If cholecystitis is suspected, consider further evaluation with radionuclide hepatobiliary scan. COMMON BILE DUCT: Measures 4 mm. No stones. No dilatation. PANCREAS: Unremarkable as visualized. No mass. No ductal dilatation. RIGHT KIDNEY: Measures 1.5cm. Normal echogenicity. No calculus, mass, or hydronephrosis. LEFT KIDNEY: Measures 0.7cm. Normal echogenicity. No calculus, mass, or hydronephrosis. SPLEEN: Enlarged, measuring 15.5 cm in greatest dimension. No focal mass. AORTA: No aneurysmal dilatation. IVC: Unremarkable. OTHER FINDINGS: Mild ascites adjacent to gallbladder. IMPRESSION: Hepatosplenomegaly with fatty infiltration of the liver. No biliary obstruction. Nonspecific mural thickening of the gallbladder. No discrete evidence of cholecystitis. However, if cholecystitis is suspected then evaluation with radionuclide hepatobiliary scan is advised. The preliminary findings for this examination were reported by [facility] at 8:55 p.m. on 02/13/2018. There is discordance of this report with the preliminary findings. Cholecystitis is not specifically suspected on the basis of these nonspecific findings. Absent cholelithiasis. Absent sonographic Loyola sign. Consider further evaluation with radionuclide hepatobiliary scan if clinically warranted.
--- NOTE | 2018-02-14 12:30 | CARD ---
APPROVED REPORT Date of service: 02/12/2018 EKG Measurement Heart [id number] <Conclusion> Normal sinus rhythm Normal ECG
== END 2018-02-13 22:35 | disposition left against medical advice (07) | DRG 749 ==
LOC: C.ER 19:06 → C.9E 02-11 09:03 → C.7D 02-11 13:42 → C.5S 02-12 18:54
PROVIDERS: ADMIT Psychiatry & Neurology Psychiatry; ATTEND Psychiatry & Neurology Psychiatry
PROC: HZ2ZZZZ Detoxification Services for Substance Abuse Treatment (ICD-10-PCS; principal; 2018-02-11)
PROC: HZ52ZZZ Individual Psychotherapy for Substance Abuse Treatment, Cognitive-Behavioral (ICD-10-PCS; 2018-02-11)
PROC: HZ59ZZZ Individual Psychotherapy for Substance Abuse Treatment, Supportive (ICD-10-PCS; 2018-02-11)
PROC: HZ56ZZZ Individual Psychotherapy for Substance Abuse Treatment, Psychoeducation (ICD-10-PCS; 2018-02-11)
PROC: GZHZZZZ Group Psychotherapy (ICD-10-PCS; 2018-02-11)
PROC: GZ58ZZZ Individual Psychotherapy, Cognitive-Behavioral (ICD-10-PCS; 2018-02-11)
PROC: GZ56ZZZ Individual Psychotherapy, Supportive (ICD-10-PCS; 2018-02-11)
PROC: GZ5 Mental Health, Individual Psychotherapy (ICD-10-PCS; 2018-02-11)
DX: F10.230 Alcohol dependence with withdrawal, uncomplicated (principal); E86.0 Dehydration; F20.9 Schizophrenia, unspecified; E83.42 Hypomagnesemia; Y90.8 Blood alcohol level of 240 mg/100 ml or more; F17.210 Nicotine dependence, cigarettes, uncomplicated; G40.509 Epileptic seizures related to external causes, not intractable, without status epilepticus; Z59.0 Homelessness; Z91.19 Patient's noncompliance with other medical treatment and regimen; J45.909 Unspecified asthma, uncomplicated; F31.9 Bipolar disorder, unspecified; F41.9 Anxiety disorder, unspecified; G47.00 Insomnia, unspecified

== ENCOUNTER 2018-03-02 18:16 | Inpatient (IN) | payer MEDICAID ==
[2018-03-02 18:16] VITALS: BMI 28.3
[2018-03-02 19:24] LABS: BASO # 0.1 K/uL (0.0-0.2); BASO % 0.6 % (0.0-2.0); EOS # 0.2 K/uL (0.0-0.7); EOS % 1.8 % (0.0-4.0); HEMOGLOBIN 14.7 g/dL (12.0-18.0); LYMPH # 1.9 K/uL (1.0-4.3); LYMPH % 14.6 % (20.0-40.0); MEAN CELL VOLUME 90.6 fL (80.0-94.0); MEAN CORPUSCULAR HEMOGLOBIN 31.4 pg (27.0-31.0); MEAN CORPUSCULAR HGB CONC 34.7 g/dL (33.0-37.0); MONO # 1.4 K/uL (0.0-0.8); MONO % 10.6 % (0.0-10.0); NEUT # 9.3 K/uL (1.8-7.0); NEUT % 72.4 % (50.0-75.0); RBC 4.69 Mil/uL (4.40-5.90); RED CELL DISTRIBUTION WIDTH 14.8 % (11.5-14.5)
[2018-03-02 19:25] LABS: WHITE BLOOD COUNT 12.8 K/uL (4.8-10.8)
[2018-03-02 19:37] LABS: ALBUMIN 4.6 g/dL (3.5-5.0); ALT/SGPT 185 U/L (21-72); AST/SGOT 448 U/L (17-59); BLOOD UREA NITROGEN 12 mg/dL (9-20); CALCIUM 9.1 mg/dl (8.6-10.4); GFR NON-AFRICAN AMERICAN > 60
--- NOTE | 2018-03-02 19:47 | C.PDOC ---
History Of Present Illness 37 y/o male presents to the ED requesting admission to psychiatric floor for change in psychiatric med regimen. Of note patient has history of seizure disorder, and has been off seizure medications for over 1 month. Patient had witnessed seizure in the ED. Ativan given and restraints placed, as patient is known to have violent seizures. Otherwise patient offers no other complaints. Requesting food. <Sina Sinclair - Last Filed: 03/02/18 20:03> History Per: Patient History/Exam Limitations: no limitations Onset/Duration Of Symptoms: Days Current Symptoms Are (Timing): Still Present Modifying Factor(s): Alcohol <Sina Sinclair - Last Filed: 03/02/18 20:03> <Ross Borges - Last Filed: 03/03/18 06:25> <Ferdinand Nuñez - Last Filed: 03/03/18 09:06> Time Seen by Provider: 03/02/18 18:51 Chief Complaint (Nursing): Psychiatric Evaluation Past Medical History Reviewed: Historical Data, Nursing Documentation, Vital Signs Vital Signs: Last Vital Signs Temp 98.4 F 03/02/18 18:40 Pulse 127 H 03/02/18 18:40 Resp 16 03/02/18 18:40 BP 154/101 H 03/02/18 18:40 Pulse Ox 98 03/02/18 18:40 - Medical History PMH: Asthma, Bipolar Disorder, Schizophrenia, Seizures (ETOH related) Denies: Diabetes, Hepatitis, HIV, HTN, Chronic Kidney Disease, Sexually Transmitted Disease - [facility] DETOXIFICATION SERVICES FOR SUBSTANCE ABUSE TREATMENT (02/11/18) GROUP GRAPHIC DESIGN ASSISTANT FOR SUBSTANCE ABUSE TREATMENT, PSYCHOEDUCATION (05/22/17) GROUP GRAPHIC DESIGN ASSISTANT FOR SUBSTANCE ABUSE, COGNITIVE BEHAVIORAL (05/22/17) GROUP PSYCHOTHERAPY (02/11/18) INDIV PSYCHOTHERAPY FOR SUBSTANCE ABUSE TREATMENT, SUPPORT (02/11/18) INDIV PSYCHOTHERAPY FOR SUBSTANCE ABUSE, COGNITIV BEHAVIORAL (02/11/18) INDIV PSYCHOTHERAPY FOR SUBSTANCE ABUSE, PSYCHOEDUCATION (02/11/18) INDIVIDUAL PSYCHOTHERAPY, COGNITIVE-BEHAVIORAL (02/11/18) INDIVIDUAL PSYCHOTHERAPY, PSYCHOPHYSIOLOGICAL (02/11/18) INDIVIDUAL PSYCHOTHERAPY, SUPPORTIVE (02/11/18) Family History: States: Unknown Family Hx - Social History Hx Tobacco Use: No Hx Alcohol Use: Yes Hx Substance Use: Yes (denies) - Immunization History Hx Tetanus Toxoid Vaccination: No Hx Influenza Vaccination: No Hx Pneumococcal Vaccination: No <Sina Sinclair - Last Filed: 03/02/18 20:03> Vital Signs: Last Vital Signs Temp 98.3 F 03/03/18 04:44 Pulse 85 03/03/18 04:44 Resp 20 03/03/18 04:44 BP 121/73 03/03/18 04:44 Pulse Ox 95 03/03/18 04:44 - [facility] DETOXIFICATION SERVICES FOR SUBSTANCE ABUSE TREATMENT (02/11/18) GROUP GRAPHIC DESIGN ASSISTANT FOR SUBSTANCE ABUSE TREATMENT, PSYCHOEDUCATION (05/22/17) GROUP GRAPHIC DESIGN ASSISTANT FOR SUBSTANCE ABUSE, COGNITIVE BEHAVIORAL (05/22/17) GROUP PSYCHOTHERAPY (02/11/18) INDIV PSYCHOTHERAPY FOR SUBSTANCE ABUSE TREATMENT, SUPPORT (02/11/18) INDIV PSYCHOTHERAPY FOR SUBSTANCE ABUSE, COGNITIV BEHAVIORAL (02/11/18) INDIV PSYCHOTHERAPY FOR SUBSTANCE ABUSE, PSYCHOEDUCATION (02/11/18) INDIVIDUAL PSYCHOTHERAPY, COGNITIVE-BEHAVIORAL (02/11/18) INDIVIDUAL PSYCHOTHERAPY, PSYCHOPHYSIOLOGICAL (02/11/18) INDIVIDUAL PSYCHOTHERAPY, SUPPORTIVE (02/11/18) <Ross Borges - Last Filed: 03/03/18 06:25> Vital Signs: Last Vital Signs Temp 98 F 03/03/18 08:59 Pulse 87 03/03/18 08:59 Resp 18 03/03/18 08:59 BP 131/81 03/03/18 08:59 Pulse Ox 98 03/03/18 08:59 - [facility] DETOXIFICATION SERVICES FOR SUBSTANCE ABUSE TREATMENT (02/11/18) GROUP GRAPHIC DESIGN ASSISTANT FOR SUBSTANCE ABUSE TREATMENT, PSYCHOEDUCATION (05/22/17) GROUP GRAPHIC DESIGN ASSISTANT FOR SUBSTANCE ABUSE, COGNITIVE BEHAVIORAL (05/22/17) GROUP PSYCHOTHERAPY (02/11/18) INDIV PSYCHOTHERAPY FOR SUBSTANCE ABUSE TREATMENT, SUPPORT (02/11/18) INDIV PSYCHOTHERAPY FOR SUBSTANCE ABUSE, COGNITIV BEHAVIORAL (02/11/18) INDIV PSYCHOTHERAPY FOR SUBSTANCE ABUSE, PSYCHOEDUCATION (02/11/18) INDIVIDUAL PSYCHOTHERAPY, COGNITIVE-BEHAVIORAL (02/11/18) INDIVIDUAL PSYCHOTHERAPY, PSYCHOPHYSIOLOGICAL (02/11/18) INDIVIDUAL PSYCHOTHERAPY, SUPPORTIVE (02/11/18) <Ferdinand Nuñez - Last Filed: 03/03/18 09:06> Review Of Systems Except As Marked, All Systems Reviewed And Found Negative. Constitutional: Negative for: Fever, Chills ENT: Negative for: Other (tongue bite) Cardiovascular: Negative for: Chest Pain Respiratory: Negative for: Shortness of Breath Genitourinary: Negative for: Incontinence Skin: Negative for: Lesions Neurological: Positive for: Seizures Psych: Positive for: Other (requesting psych med adjustment) <Sina Sinclair - Last Filed: 03/02/18 20:03> Physical Exam - Physical Exam Additional Physical Exam Comments: Constitutional: No acute distress. Head: Normocephalic. Atraumatic. Eyes: PERRL. ENT: Moist mucous membranes. No tongue laceration. Neck: Supple. Cardiovascular: Tachycardic. Radial pulse 2+ bilaterally. Chest: No tenderness. Respiratory: Clear to auscultation bilaterally. GI: Soft. Nontender. Nondistended. Back: No CVA tenderness. Musculoskeletal: No tenderness or swelling of extremities. Skin: No rash. Neurologic: Alert, no focal deficit. <Sina Sinclair - Last Filed: 03/02/18 20:03> ED Course And Treatment - Laboratory Results Result Diagrams: 03/02/18 19:14 03/02/18 19:14 O2 Sat by Pulse Oximetry: 98 (RA) Pulse Ox Interpretation: Normal <YahirSina Moris - Last Filed: 03/02/18 20:03> - Laboratory Results Result Diagrams: 03/02/18 19:14 03/02/18 19:14 Pulse Ox Interpretation: Normal <Ross Borges - Last Filed: 03/03/18 06:25> - Laboratory Results Result Diagrams: 03/02/18 19:14 03/02/18 19:14 <Ferdinand Nuñez - Last Filed: 03/03/18 09:06> Medical Decision Making Medical Decision Making: Impression: 37 y/o M requesting psychiatric evaluation, s/p witnessed seizure Plan: --CMP --Alcohol serum --Urine drug screen --CBC --UA --Ativan 2 mg IVP <Sina Sinclair - Last Filed: 03/02/18 20:03> Medical Decision Makin: signed over from overnight, pending Crisis eval pt with h/o alcohol abuse and seizure disorder, bipolar, schizophrenia ETOH 377 overnight Seen and examined, NAD, sleeping 0900 d/w Crisis, ok to Adm to Medicine Floor, to observe for seizure activity and CIWA protocol, then plan to transfer to [facility]/ in 24 hours d/w Dr. Gao, Medicine [employer], ok to Med Surg Obs Librium 50 mg PO given for tremors and CIWA Pt denies regular anti-seizure meds and does not recall prior Tx Keppra 500 mg PO Started, consider continuing 500 mg PO BID and increase as needed <Ferdinand Nuñez - Last Filed: 03/03/18 09:06> Disposition <Sina Sinclair - Last Filed: 03/02/18 20:03> Counseled Patient/Family Regarding: Studies Performed, Diagnosis - Disposition Disposition Time: 00:00 <Ross Borges - Last Filed: 03/03/18 06:25> Doctor Will See Patient In The: Hospital Counseled Patient/Family Regarding: Studies Performed, Diagnosis - Disposition Disposition Time: 09:05 <Ferdinand Nuñez - Last Filed: 03/03/18 09:06> - Disposition Condition: FAIR Forms: [facility] (Upper Sorbian) - Clinical Impression Clinical Impression: Alcohol intoxication, Seizure, Depression, Bipolar 1 disorder, Schizophrenia - Scribe Statement The provider has reviewed the documentation as recorded by the Scribe (Rubina Dey) Provider Attestation: All medical record entries made by the Scribe were at my direction and personally dictated by me. I have reviewed the chart and agree that the record accurately reflects my personal performance of the history, physical exam, medical decision making, and the department course for this patient. I have also personally directed, reviewed, and agree with the discharge instructions and disposition. <Sina Sinclair - Last Filed: 03/02/18 20:03> Physician Patient Turnover Patient Signed Over To: Ferdinand Nuñez Handoff Comments: pending crisis eval <Ross Borges - Last Filed: 03/03/18 06:25>
[2018-03-02 21:19] LABS: SQUAMOUS EPITHIAL < 1 /hpf (0-5); URINE BACTERIA OCC (<OCC); URINE BILIRUBIN 2+ (NEGATIVE); URINE BLOOD 1+ (NEGATIVE); URINE CLARITY Clear (Clear); URINE COLOR Amber (YELLOW); URINE GLUCOSE (UA) NORMAL (Normal); URINE LEUKOCYTE ESTERASE NEG Leu/uL (Negative); URINE PROTEIN 3+ mg/dL (NEGATIVE)
[2018-03-02 21:28] LABS: BARBITURATES, UR NEGATIVE (NEGATIVE); OPIATES, UR NEGATIVE (NEGATIVE); PHENCYCLIDINE, UR NEGATIVE (NEGATIVE)
[2018-03-02 21:45] LABS: BENZODIAZEPINES, UR POSITIVE (NEGATIVE)
[2018-03-03] MEDS ORDERED: Sodium Chloride 0.9% 1,000 ML IV ONE (00:15)
--- NOTE | 2018-03-03 07:07 | RAD ---
Date of service: 03/02/2018 HISTORY: seizure COMPARISON: No prior. FINDINGS: LUNGS: Mild venous congestion. Right hilar prominence. Patchy increased markings in the right infrahilar region. PLEURA: No significant pleural effusion identified, no pneumothorax apparent. CARDIOVASCULAR: No atherosclerotic calcification present Normal. OSSEOUS STRUCTURES: No significant abnormalities. VISUALIZED UPPER ABDOMEN: Normal. OTHER FINDINGS: None. IMPRESSION: Mild venous congestion. Right hilar prominence. Patchy increased markings in the right infrahilar region.
[2018-03-03] MEDS ORDERED: Multivitamin (MVI) 10 ML, Thiamine 100 MG, Folic Acid 1 MG in Sodium Chloride 0.9% 1,00... IV ONE (13:04)
[2018-03-03] MEDS: Folic Acid 1 MG, Thiamine 100 MG, Multivitamin (MVI) 10 ML in Dextrose 5% In Water 1,00... IV SCH (13:55)
--- NOTE | 2018-03-03 21:49 | CP.PCM.HP ---
Past Patient History - Infectious Disease Hx of Infectious Diseases: None - Past Medical History & Family History Past Medical History?: Yes - Past Social History Smoking Status: Heavy Smoker > 10 Cigarettes Daily - CARDIAC Hx Cardiac Disorders: No Hx Hypertension: No - PULMONARY Hx Tuberculosis: No - NEUROLOGICAL HX Cerebrovascular Accident: No Hx Seizures: Yes (ETOH related) - HEENT Hx HEENT Problems: No - RENAL Hx Chronic Kidney Disease: No - ENDOCRINE/METABOLIC Hx Endocrine Disorders: No - HEMATOLOGICAL/ONCOLOGICAL Hx Cancer: No Hx Human Immunodeficiency Virus (HIV): No - INTEGUMENTARY Hx Dermatological Problems: No - MUSCULOSKELETAL/RHEUMATOLOGICAL Hx Falls: No - GASTROINTESTINAL Hx Gastrointestinal Disorders: No - GENITOURINARY/GYNECOLOGICAL Hx Sexually Transmitted Disorders: No - PSYCHIATRIC Hx Bipolar Disorder: Yes Hx Schizophrenia: Yes Hx Substance Use: Yes (denies) - SURGICAL HISTORY Hx Surgeries: No - ANESTHESIA Hx Anesthesia: No (Pt denies) Meds Allergies/Adverse Reactions: Allergies Allergy/AdvReac Type Severity Reaction Status Date / Time No Known Allergies Allergy Verified 03/02/18 21:59 Results - Vital Signs Recent Vital Signs: Last Vital Signs Temp 98.3 F 03/03/18 16:47 Pulse 92 H 03/03/18 16:47 Resp 20 03/03/18 16:47 BP 141/84 03/03/18 16:47 Pulse Ox 96 03/03/18 16:47 - Labs Result Diagrams: 03/02/18 19:14 03/02/18 19:14 Labs: Laboratory Results - last 24 hr 03/02/18 18:37 POC Glucose (mg/dL) 101
[2018-03-03] MEDS: Azithromycin 500 MG in Sodium Chloride 0.9% 250 ML IVPB SCH (23:43)
[2018-03-04] MEDS: Folic Acid 1 MG, Thiamine 100 MG, Multivitamin (MVI) 10 ML in Dextrose 5% In Water 1,00... IV SCH (07:32)
--- NOTE | 2018-03-04 12:40 | CON ---
DATE: 03/04/2018 Neurology consult was called by attending physician, Dr. Gao. HISTORY OF PRESENT ILLNESS: This is a 37-year-old male with a long history of alcoholism who came into the emergency room on 03/02/2018. He wanted to request admission to psychiatric floor because he wanted to change psychiatric meds. The patient has history of epilepsy and outpatient medications for one month. He had a witnessed seizure in the emergency room, Ativan was given. The exact characteristics of his epilepsy is not known, it is complex, partial, or generalized tonic-clonic. His seizures were controlled and he was admitted to [address] [place] [address] scan of the head was not done. LABORATORY DATA: Labs as follows: White count 12.8, hemoglobin 14.7, hematocrit 42.5, platelets 127. Chemistry: Sodium 144, potassium 3.8, chloride 102, carbon dioxide 20, BUN 12, creatinine 0.7. AST 448, ALT 185, alk phos 470. Urine is positive for 2+ bilirubin, 1+ ketones, 1+ blood, occult bacteria, but there is no infection per se. Toxicology was positive for 377 of alcohol on admission, positive for benzodiazepines. PHYSICAL EXAMINATION: GENERAL: The patient is alert, oriented x3. HEENT: Pupils are round and reactive to light. Extraocular movements are intact. Thoughts are slightly tangential. NEUROLOGIC: Cranial nerves II through XII normal. Motor tone, strength 5/5 upper and lower bilaterally. Sensory intact to fine touch, pin, position, and vibration sense. Cerebellar: Gait was normal. There was a mild tremor bilaterally. DTR was +2 upper and lower bilaterally. There were no cerebellar signs. IMPRESSION: This is a 37-year-old male with most likely alcohol withdrawal seizures. The patient had 377 alcohol on admission and extremely elevated liver function tests. There is also concern for pancreatitis. There is not a clear history of epilepsy, so we will not try antiepilepsy medication until electroencephalogram is obtained. PLAN: 1. EEG. 2. CT head. 3. Our team will follow. Thank you for this consult. Marisol Kern MD [facility] # [id number]
[2018-03-04 17:35] LABS: MEAN CELL VOLUME 90.4 fL (80.0-94.0); MEAN CORPUSCULAR HEMOGLOBIN 31.4 pg (27.0-31.0); MEAN CORPUSCULAR HGB CONC 34.7 g/dL (33.0-37.0); MEAN PLATELET VOLUME 9.8 fL (7.2-11.7); RBC 4.77 Mil/uL (4.40-5.90); RED CELL DISTRIBUTION WIDTH 14.5 % (11.5-14.5); WHITE BLOOD COUNT 7.1 K/uL (4.8-10.8)
[2018-03-04 17:40] LABS: BLOOD UREA NITROGEN 10 mg/dL (9-20); CALCIUM 9.6 mg/dl (8.6-10.4); GFR NON-AFRICAN AMERICAN > 60
--- NOTE | 2018-03-04 21:43 | CP.PCM.PN ---
Subjective - Subjective Subjective: dictated Objective - Vital Signs/Intake and Output Vital Signs (last 24 hours): Temp Pulse Resp BP Pulse Ox 99.1 F 111 H 20 117/77 97 03/04/18 14:00 03/04/18 15:58 03/04/18 14:00 03/04/18 14:00 03/04/18 14:00 Intake and Output: 03/04/18 03/05/18 18:59 06:59 Intake Total 1040 Balance 1040 - Medications Medications: Current Medications Chlordiazepoxide (Librium) 25 mg PO Q4 PRN PRN Reason: Agitation Last Admin: 03/04/18 21:07 Dose: 25 mg Folic Acid 1 mg/ Thiamine HCl 100 mg/ Multivitamins/Vitamin C 10 ml/ Dextrose 1,011.2 mls @ 80 mls/hr IV .[id number] DAFNE Last Admin: 03/04/18 07:32 Dose: 80 mls/hr Ceftriaxone Sodium 1 gm/ (Sodium Chloride) 100 mls @ 100 mls/hr IVPB Q24H DAFNE; Protocol Last Admin: 03/04/18 21:08 Dose: 100 mls/hr Azithromycin 500 mg/ Sodium (Chloride) 250 mls @ 250 mls/hr IVPB Q24H DAFNE; Protocol Last Admin: 03/03/18 23:43 Dose: 250 mls/hr Influenza Virus Vaccine (Fluzone (36 Months - 7 Yrs)) 45 mcg IM .ONCE ONE Stop: 03/05/18 10:01 Nicotine (Nicoderm Cq) 1 patch TD DAILY DAFNE Last Admin: 03/04/18 10:02 Dose: 1 patch Pneumococcal Polyvalent Vaccine (Pneumovax 23 Vaccine) 0.5 ml IM .ONCE ONE Stop: 03/05/18 10:01 - Labs Labs: 03/04/18 17:22 03/04/18 17:22
[2018-03-04] MEDS: Azithromycin 500 MG in Sodium Chloride 0.9% 250 ML IVPB SCH (22:26)
[2018-03-05] MEDS: Folic Acid 1 MG, Thiamine 100 MG, Multivitamin (MVI) 10 ML in Dextrose 5% In Water 1,00... IV SCH (00:20)
--- NOTE | 2018-03-05 01:26 | PN ---
DATE: 03/04/2018 SUBJECTIVE: The patient Arias is coughing. No shortness of breath. PHYSICAL EXAMINATION: VITAL SIGNS: Blood pressure 117/77, pulse 112, respiratory rate 20 and temperature 99.1. LUNGS: Scattered rales. CVS: S1 and S2 regular. ABDOMEN: Soft. ASSESSMENT: 1. Alcohol intoxication. 2. Cystic fibrosis with tracheobronchitis could be pneumonia. 3. Alcoholism. PLAN: Continue current medications. Sheldon Gao MD
--- NOTE | 2018-03-05 07:57 | HP ---
CHIEF COMPLAINT: Weakness. HISTORY OF PRESENT ILLNESS: This is a 37-year-old male who is alcoholic. He has history of cystic fibrosis and he is noncompliant with his diet, medications. The patient has been drinking and he has been drinking heavily, large quantity, for the last few weeks. He has been off his seizure medication for almost a month. The patient came in as he has been drinking, he came with alcohol intoxication and he was not feeling well. He is unable to describe any further information. He has some cough. According to the patient, he has cystic fibrosis but he does not see anybody, does not take any medication. The patient stopped taking his seizure medication a week ago and he had seizure in ER, he was given Ativan and he was placed in restraints. The patient is known to have violent seizures. There is no history of fever. There is no history of polyuria, polydipsia, polyphagia. There is no history of hematuria, pyuria. There is no history of trauma, fall, loss of consciousness. No seizure-like activity. He denies any tingling, numbness, paresthesias. There is no joint pain. SOCIAL HISTORY: He smokes. He drinks. He denies any substance abuse. FAMILY HISTORY: Noncontributory. PHYSICAL EXAMINATION: GENERAL: A young male in no acute distress, weak palpitation. VITAL SIGNS: Blood pressure is 141/84, pulse 92, respiratory rate 20, temperature 98.3. SKIN: Dry, poor turgor. HEENT: Atraumatic, normocephalic. Negative pallor. Negative jaundice. Extraocular movements are intact. NECK: Supple. No JVD. LUNGS: Bilateral scattered rales, rhonchi. CARDIOVASCULAR SYSTEM: S1, S2, regular. ABDOMEN: Soft, nontender. Bowel sounds are positive. RECTAL: Negative. EXTREMITIES: Normal. CENTRAL NERVOUS SYSTEM: The patient is intoxicated and has tremor. ASSESSMENT: 1. Alcohol intoxication. 2. Tracheobronchitis, rule out pneumonia. 3. Cystic fibrosis. PLAN: Admit. Details orders written. Seen and examined. Sheldon Gao MD
[2018-03-05] MEDS ORDERED: Influenza Virus Vaccine 45 mcg/0.5 ml Syr (36 months - 7 yrs) IM ONE (10:00)
[2018-03-05] MEDS ORDERED: Influenza Vaccine 60 MCG/0.5 ML SYR (3 yr & up) IM ONE (10:30)
[2018-03-05] MEDS: Pneumococcal 23-Valent Vaccine IM ONE ×2 (10:45→10:59)
[2018-03-05] MEDS ORDERED: Folic Acid 1 MG, Thiamine 100 MG, Multivitamin (MVI) 10 ML in Dextrose 5% In Water 1,00... IV SCH (11:15)
[2018-03-05 16:17] VITALS: BP 114/80; RESP 20; TEMP 98.3; O2SAT 96
[2018-03-05 19:42] VITALS: PULSE 82
--- NOTE | 2018-03-05 23:56 | CP.PCM.DIS ---
Provider - Provider Date of Admission: 03/04/18 13:30 Attending physician: Shedlon Gao MD Hospital Course - Lab Results Lab Results: Micro Results 03/04/18 16:42 Sputum Gram Stain - Final Most Recent Lab Values WBC 7.1 K/uL (4.8-10.8) 03/04/18 17:22 RBC 4.77 Mil/uL (4.40-5.90) 03/04/18 17:22 Hgb 15.0 g/dL (12.0-18.0) 03/04/18 17:22 Hct 43.2 % (35.0-51.0) 03/04/18 17:22 MCV 90.4 fL (80.0-94.0) 03/04/18 17:22 MCH 31.4 pg (27.0-31.0) H 03/04/18 17:22 MCHC 34.7 g/dL (33.0-37.0) 03/04/18 17:22 RDW 14.5 % (11.5-14.5) 03/04/18 17:22 Plt Count 63 K/uL (130-400) L D 03/04/18 17:22 MPV 9.8 fL (7.2-11.7) 03/04/18 17:22 Neut % (Auto) 72.4 % (50.0-75.0) 03/02/18 19:14 Lymph % (Auto) 14.6 % (20.0-40.0) L 03/02/18 19:14 [place] % (Auto) 10.6 % (0.0-10.0) H 03/02/18 19:14 Eos % (Auto) 1.8 % (0.0-4.0) 03/02/18 19:14 Baso % (Auto) 0.6 % (0.0-2.0) 03/02/18 19:14 Neut # (Auto) 9.3 K/uL (1.8-7.0) H 03/02/18 19:14 Lymph # (Auto) 1.9 K/uL (1.0-4.3) 03/02/18 19:14 [place] # (Auto) 1.4 K/uL (0.0-0.8) H 03/02/18 19:14 Eos # (Auto) 0.2 K/uL (0.0-0.7) 03/02/18 19:14 Baso # (Auto) 0.1 K/uL (0.0-0.2) 03/02/18 19:14 Sodium 137 mmol/L (132-148) 03/04/18 17:22 Potassium 3.7 mmol/L (3.6-5.2) 03/04/18 17:22 Chloride 98 mmol/L (98-107) 03/04/18 17:22 Carbon Dioxide 26 mmol/L (22-30) 03/04/18 17:22 Anion Gap 17 (10-20) 03/04/18 17:22 BUN 10 mg/dL (9-20) 03/04/18 17:22 Creatinine 0.8 mg/dL (0.8-1.5) 03/04/18 17:22 Est GFR ( Amer) > 60 03/04/18 17:22 Est GFR (Non-Af Amer) > 60 03/04/18 17:22 POC Glucose (mg/dL) 101 mg/dL (65-110) 03/02/18 18:37 Random Glucose 121 mg/dL (75-110) H 03/04/18 17:22 Calcium 9.6 mg/dl (8.6-10.4) 03/04/18 17:22 Total Bilirubin 3.1 mg/dL (0.2-1.3) H 03/02/18 19:14 AST 448 U/L (17-59) H D 03/02/18 19:14 ALT 185 U/L (21-72) H 03/02/18 19:14 Alkaline Phosphatase 470 U/L (38-126) H D 03/02/18 19:14 Total Protein 9.1 g/dL (6.3-8.3) H 03/02/18 19:14 Albumin 4.6 g/dL (3.5-5.0) 03/02/18 19:14 Globulin 4.5 gm/dL (2.2-3.9) H 03/02/18 19:14 Albumin/Globulin Ratio 1.0 (1.0-2.1) 03/02/18 19:14 Urine Color [place]ailin (YELLOW) 03/02/18 21:04 Urine Clarity Clear (Clear) 03/02/18 21:04 Urine pH 5.0 (5.0-8.0) 03/02/18 21:04 Ur Specific [place] 1.037 (1.003-1.030) H 03/02/18 21:04 Urine Protein 3+ mg/dL (NEGATIVE) H 03/02/18 21:04 Urine Glucose (UA) Normal mg/dL (Normal) 03/02/18 21:04 Urine Ketones 1+ mg/dL (NEGATIVE) H 03/02/18 21:04 Urine Blood 1+ (NEGATIVE) H 03/02/18 21:04 Urine Nitrate Negative (NEGATIVE) 03/02/18 21:04 Urine Bilirubin 2+ (NEGATIVE) H 03/02/18 21:04 Urine Urobilinogen 4.0 mg/dL (0.2-1.0) 03/02/18 21:04 Ur Leukocyte Esterase Neg Manish/uL (Negative) 03/02/18 21:04 Urine WBC (Auto) 2 /hpf (0-5) 03/02/18 21:04 Urine RBC (Auto) 2 /hpf (0-3) 03/02/18 21:04 Ur Squamous Epith Cells < 1 /hpf (0-5) 03/02/18 21:04 Urine Bacteria Occ (<OCC) H 03/02/18 21:04 Urine Opiates Screen Negative (NEGATIVE) 03/02/18 21:04 Urine Methadone Screen Negative (NEGATIVE) 03/02/18 21:04 Ur Barbiturates Screen Negative (NEGATIVE) 03/02/18 21:04 Ur Phencyclidine Scrn Negative (NEGATIVE) 03/02/18 21:04 Ur Amphetamines Screen Negative (NEGATIVE) 03/02/18 21:04 U Benzodiazepines Scrn Positive (NEGATIVE) 03/02/18 21:04 U Oth Cocaine Metabols Negative (NEGATIVE) 03/02/18 21:04 U Cannabinoids Screen Negative (NEGATIVE) 03/02/18 21:04 Alcohol, Quantitative 377 mg/dl (0-10) H 03/02/18 19:14 Discharge Plan - Follow Up Plan Condition: FAIR Disposition: HOME/ ROUTINE Instructions: Quitting Smoking, Seizures, Alcohol Withdrawal (DC), Bipolar Disorder (DC), Amoxicillin, Guaifenesin, Nicotine, Depression (DC) Additional Instructions: take medications as prescribed; nicotine patch 21 mg 1 patch daily amoxil 875mg 2x/day guaifenessin 300mg 3x/day. follow up w/ dr gao in 1 week call doctor or go to the nearest hospital if symptoms worsen safety/seisure precautions smoke and alcohol cessation teaching Referrals: Sheldon Gao MD [Staff Provider] -
--- NOTE | 2018-03-06 22:16 | DS ---
ADMISSION DIAGNOSES: Alcohol intoxication, alcohol withdrawal. DISCHARGE DIAGNOSES: Alcohol intoxication, thrombocytopenia due to alcoholism, tracheobronchitis, and cystic fibrosis. HISTORY OF PRESENT ILLNESS: This is a 37-year-old male with history of cystic fibrosis, who came in as he had been drinking heavily in large quantities over the last few days because of stress, anxiety, and he started getting weak, very sick on his stomach, nausea, vomiting, abdominal pain, generalized weakness, shaking, tremor and he came to emergency room and he was hospitalized. He was also found to have tracheobronchitis. He has history of cystic fibrosis. There is questionable fevers, chills, rigors. Poor historian. The patient was admitted to the floor, started on antibiotics, liquid precautions, seizure precautions, Librium, multivitamin, thiamine, banana bag and he did well and he has been discharged with outpatient followup. CONDITION UPON DISCHARGE: Stable. PLAN: The patient is advised to have absolute abstinence from alcohol; antibiotics for his tracheobronchitis, and the patient's condition is stable upon discharge. The patient will be followed up by me in one week. Sheldon Gao MD
== END 2018-03-05 20:19 | disposition home or self-care (01) | DRG 750 ==
LOC: C.ER 18:16 → C.9E 03-03 08:58 → C.3T 03-03 10:47 → C.6T 03-03 16:46 → OBSVTOIN 03-04 13:30
PROVIDERS: ADMIT Internal Medicine; ATTEND Internal Medicine
DX: F10.239 Alcohol dependence with withdrawal, unspecified (principal); E84.9 Cystic fibrosis, unspecified; F20.9 Schizophrenia, unspecified; G40.909 Epilepsy, unspecified, not intractable, without status epilepticus; F10.229 Alcohol dependence with intoxication, unspecified; F17.200 Nicotine dependence, unspecified, uncomplicated; F31.9 Bipolar disorder, unspecified; J40 Bronchitis, not specified as acute or chronic; Z78.1 Physical restraint status; Z91.11 Patient's noncompliance with dietary regimen; Y90.8 Blood alcohol level of 240 mg/100 ml or more

== ENCOUNTER 2018-09-24 13:13 | Outpatient (CLI) | payer OTHER | END 2018-09-24 13:14 | disposition home or self-care (01) | LOC: C.LAB 13:13 | DX: K74.60 Unspecified cirrhosis of liver (principal) ==

== ENCOUNTER 2018-09-27 15:09 | Observation (INO) | payer MEDICAID, OTHER ==
[2018-09-27 15:10] VITALS: BMI 28.3
[2018-09-27 15:52] LABS: BASO # 0.1 K/uL (0.0-0.2); BASO % 0.5 % (0.0-2.0); EOS # 0.2 K/uL (0.0-0.7); EOS % 1.6 % (0.0-4.0); HEMOGLOBIN 13.6 g/dL (12.0-18.0); LYMPH # 1.7 K/uL (1.0-4.3); LYMPH % 10.7 % (20.0-40.0); MEAN CELL VOLUME 93.2 fL (80.0-94.0); MEAN CORPUSCULAR HEMOGLOBIN 31.4 pg (27.0-31.0); MEAN CORPUSCULAR HGB CONC 33.7 g/dL (33.0-37.0); MEAN PLATELET VOLUME 9.3 fL (7.2-11.7); MONO # 1.4 K/uL (0.0-0.8); MONO % 9.2 % (0.0-10.0); NEUT # 12.1 K/uL (1.8-7.0); RBC 4.34 Mil/uL (4.40-5.90); RED CELL DISTRIBUTION WIDTH 14.2 % (11.5-14.5); WHITE BLOOD COUNT 15.6 K/uL (4.8-10.8)
--- NOTE | 2018-09-27 16:00 | RAD ---
Date of service: 09/27/2018 PROCEDURE: CHEST RADIOGRAPH, 1 VIEW HISTORY: abd pain COMPARISON: 09/04/2018 FINDINGS: LUNGS: No infiltrate. Minimal linear scar/atelectasis at both lung bases. Limited examination due to poor inspiratory effort and apical lordotic positioning. PLEURA: No pneumothorax or pleural fluid seen. CARDIOVASCULAR: No aortic atherosclerotic calcification present. Normal. OSSEOUS STRUCTURES: No significant abnormalities. VISUALIZED UPPER ABDOMEN: Normal. OTHER FINDINGS: None. IMPRESSION: No active disease.
[2018-09-27 16:02] LABS: INR 1.5; PARTIAL THROMBOPLASTIN TIME 36.3 SECONDS (21-34); PROTHROMBIN TIME 16.9 SECONDS (9.7-12.2)
[2018-09-27 16:09] LABS: ALB/GLOB RATIO 0.7 (1.0-2.1); ALBUMIN 3.3 g/dL (3.5-5.0); ALT/SGPT 47 U/L (21-72); AST/SGOT 107 U/L (17-59); BLOOD UREA NITROGEN 17 mg/dL (9-20); CALCIUM 8.8 mg/dl (8.6-10.4); GFR NON-AFRICAN AMERICAN > 60; LIPASE 246 U/L (23-300)
--- NOTE | 2018-09-27 16:29 | CP.PCM.HP ---
<Rachael Saxena P - Last Filed: 09/27/18 17:29> History of Present Illness - History of Present Illness History of Present Illness: H&P for Dr. Nunez Patient is a 37 year old male with a past medical history of cirrhosis, hepatitis C, cystic fibrosis, presents for increasing abdominal distention. Patient was recently admitted on 09/19/18 for similar symptoms and had paracentesis done. Patient states abdominal distention started on 09/22/18. Distention worsened today. Associated symptoms include 02/21 abdominal pain and difficulty breathing. Patient states he has leg swelling from time to time, but not presently. Patient also complains of 20 pound weight loss in the past month. Denies fever, chills, nausea, vomiting, diarrhea, constipation, chest pain, cough, dizziness, lightheadedness. Patient reports compliance with his medications. States he quit drinking one month ago. PMD: Dr. Faustin PMHx: cirrhosis, hepatitis C, cystic fibrosis SurgHx: Paracentesis x4 FamHx: Sister- cervical cancer, lupus; Mother-lupus; paternal grandmother- throat cancer Allergies: NKDA Medications: Lactulose 15gm TID, spironolactone 25mg po bid, furosemide 20mg po bid, multivitamin 1 tab daily, and nicoderm SocHx: ETOH- quit 1 month ago; previously drank "15pints of vodka per day for 8- 9 years"; Drugs- former ICDU (heroin) from age [age]. Tobacco- cut down to 2 cigarettes per day, previously smoked 2ppd [id number]. Present on Admission - Present on Admission Any Indicators Present on Admission: No Review of Systems - Constitutional Constitutional: Weight Loss. absent: Headache, Night Sweats, Weight Gain - EENT Eyes: absent: Decreased Night Vision, Itchy Eyes, Loss of Peripheral Vision, Requires Corrective Lenses, Loss of Vision Nose/Mouth/Throat: absent: Epistaxis, Nasal Congestion, Nasal Obstruction, Bleeding Gums, Mouth Lesions, Tongue Swelling - Cardiovascular Cardiovascular: absent: Chest Pain, Claudication, Irregular Heart Rhythm, Leg Edema, Palpitations, Pedal Edema - Respiratory Respiratory: Dyspnea. absent: Cough, Wheezing, Pain on Inspiration, Chest Congestion, Excessive Mucous Production - Gastrointestinal Gastrointestinal: Abdominal Pain, Other (distention). absent: Constipation, Cramping, Diarrhea, Dysphagia, Hematochezia, Melena, Nausea, Vomiting - Reproductive: Male Reproductive:Male: Sexual Dysfunction - Musculoskeletal Musculoskeletal: absent: Arthralgias, Joint Swelling, Muscle Weakness - Integumentary Integumentary: absent: Change in Pigmentation, Changing Lesions, Erythema, Photosensitivity, Rash, Unusual Bruising, Other - Neurological Neurological: absent: Abnormal Speech, Behavioral Changes, Burning Sensations, Disequilibrium, Numbness, Focal Weakness, Loss of Vision, Radicular Pain, S yncope - Endocrine Endocrine: absent: Change in Body Appearance, Excessive Sweating, Increase in Ring/Shoe/Hat Size, Polyphagia Past Patient History - Infectious Disease Hx of Infectious Diseases: None - Past Medical History & Family History Past Medical History?: Yes - Past Social History Smoking Status: Light Smoker < 10 Cigarettes Daily - CARDIAC Hx Hypertension: No - PULMONARY Hx Asthma: Yes - NEUROLOGICAL Hx Seizures: Yes (ETOH related) - HEENT Hx HEENT Problems: No - RENAL Hx Chronic Kidney Disease: No - ENDOCRINE/METABOLIC Hx Endocrine Disorders: No - HEMATOLOGICAL/ONCOLOGICAL Hx Blood Disorders: Yes Hx Cirrhosis: Yes Hx Hepatitis C: Yes Hx Human Immunodeficiency Virus (HIV): No - INTEGUMENTARY Hx Dermatological Problems: No - MUSCULOSKELETAL/RHEUMATOLOGICAL Hx Falls: No - GASTROINTESTINAL Hx Gastrointestinal Disorders: No - GENITOURINARY/GYNECOLOGICAL Hx Sexually Transmitted Disorders: No - PSYCHIATRIC Hx Bipolar Disorder: Yes Hx Schizophrenia: Yes Hx Substance Use: No - ANESTHESIA Hx Anesthesia: No (Pt denies) Meds Allergies/Adverse Reactions: Allergies Allergy/AdvReac Type Severity Reaction Status Date / Time No Known Allergies Allergy Verified 09/19/18 11:24 Physical Exam - Constitutional Appears: Other (thin) - Head Exam Head Exam: ATRAUMATIC, NORMOCEPHALIC - Eye Exam Eye Exam: EOMI, PERRL, Scleral icterus - ENT Exam ENT Exam: Mucous Membranes Moist - Neck Exam Neck exam: Positive for: Full Rom, Normal Inspection - Respiratory Exam Respiratory Exam: Clear to Auscultation Bilateral, NORMAL BREATHING PATTERN. absent: Rales, Rhonchi, Wheezes - Cardiovascular Exam Cardiovascular Exam: REGULAR RHYTHM, +S1, +S2. absent: Systolic Murmur - GI/Abdominal Exam GI & Abdominal Exam: Distended, Firm, Tenderness (diffuse). absent: Guarding Additional comments: prominent veins noted to abdomen, + fluid wave - Extremities Exam Extremities exam: Positive for: full ROM, normal inspection, pedal pulses present. Negative for: pedal edema, tenderness Additional comments: clubbing to digits of bilateral hands and feet - Neurological Exam Neurological exam: Alert, CN II-XII Intact, Oriented x3 Additional comments: 5/5 muscle strength all extremities - Psychiatric Exam Psychiatric exam: Normal Affect, Normal Mood - Skin Skin Exam: Dry, Intact, Normal Color, Warm Additional comments: tattoos noted to abdomen Results - Vital Signs Recent Vital Signs: Last Vital Signs Temp 99.1 F 09/27/18 15:20 Pulse 130 H 09/27/18 15:20 Resp 22 09/27/18 15:35 BP 129/96 H 09/27/18 15:20 Pulse Ox 100 09/27/18 15:35 - Labs Result Diagrams: 09/27/18 15:48 09/27/18 15:48 Labs: Laboratory Results - last 24 hr 09/27/18 09/27/18 09/27/18 15:48 15:48 15:48 WBC 15.6 H RBC 4.34 L Hgb 13.6 Hct 40.5 MCV 93.2 MCH 31.4 H MCHC 33.7 RDW 14.2 Plt Count 207 MPV 9.3 Neut % (Auto) 78.0 H Lymph % (Auto) 10.7 L Early % (Auto) 9.2 Eos % (Auto) 1.6 Baso % (Auto) 0.5 Neut # (Auto) 12.1 H Lymph # (Auto) 1.7 Early # (Auto) 1.4 H Eos # (Auto) 0.2 Baso # (Auto) 0.1 PT 16.9 H INR 1.5 APTT 36.3 H Sodium 131 L Potassium 3.9 Chloride 95 L Carbon Dioxide 26 Anion Gap 14 BUN 17 Creatinine 0.8 Est GFR ( Amer) > 60 Est GFR (Non-Af Amer) > 60 Random Glucose 163 H D Calcium 8.8 Total Bilirubin 7.1 H AST 107 H D ALT 47 Alkaline Phosphatase 224 H D Total Protein 7.8 Albumin 3.3 L Globulin 4.5 H Albumin/Globulin Ratio 0.7 L Lipase 246 Alcohol, Quantitative < 10 Assessment & Plan - Assessment and Plan (Free Text) Assessment: Patient is a 37 year old male with a past medical history of cirrhosis, hepatitis C, and cystic fibrosis, who is admitted for ascites. Plan: Cirrhosis, Ascites - Hx of Hepatitis C - CXR: no acute findings - IR, Dr. Padilla consulted for paracentesis - Albumin 12.5gm IV x1, vitamin K 10mg SC x1, FFP x1 - Continue home medications: Spironolactone 25mg PO daily, lactulose TID, furosemide 20mg po BID - Morphine 2mg IV Q6h PRN for pain - Will not order Peritoneal fluid studies, as patient had studies done on last admission 09/19/18 - Child-Lugo score: 10 points ( Life Expectancy : 1-3 years, Abdominal surgery tangela-operative mortality: 82%) - MELD score: 22 (19.6% estimated 3-Month Mortality) Imaging from previous admission: * Chest/Abd/Pelv CT (09/11/18): Small pericardial effusion. Subcarinal lymph node measures approximately 16 mm in short axis. Additional scattered sub cm mediastinal and axillary adenopathy. Please note evaluation for adenopathy, in particular hilar adenopathy, limited due to absence of IV contrast. Extensive subpleural bulla predominantly in peripheral and perifissural distribution. 4 mm hepatic dome calcification, likely granuloma. Hepatomegaly. Nodular hepatic contour may be seen in setting of cirrhosis. Region of ill-defined low-attenuation hypodensity seen within the inferior right hepatic lobe suspicious for neoplasm are not adequately evaluated on this noncontrast study and best seen on CT of the abdomen and pelvis with contrast performed 09/05/18. Splenomegaly. Contracted gallbladder limits evaluation. Gallbladder wall thickening/pericholecystic edema. Mild pancreatic prominence possibly edematous. Correlate clinically for possibility of pancreatitis including amylase and lipase levels. Too small to characterize exophytic left renal hypodensity measures approximately 5 mm. Extensive abdominal and pelvic ascites. * Liver CT 09/24/18: No hepatic neoplasm. Hepatic cirrhosis. Mild splenomegaly. Extensive ascites. Mild left upper quadrant varices. Nonspecific mural thickening of multiple loops of jejunum. This may be seen in association with hypoalbuminemia but is nonspecific. Additional nonacute findings. See full note. Alcoholic hepatitis, chronic - [facility] discriminant function score: 34.2 (patient may benefit from glucocorticoid therapy) - AST/ALT: 107/47 - Avoid hepatotoxic agents - Continue to monitor Elevated Bilirubin, acute - Total bilirubin at admission 7.1 - Continue to monitor History of alcohol abuse, chronic - Counselled patient on alcohol cessation - Patient's last drink was one month ago Prophylaxis - DVT: hold chemical anticoagulation; SCDs - GI: not indicated at this time Patient seen and case discussed with attending, Dr. Mayra Saxena, PGY-1 <Fransisco Nunez - Last Filed: 09/28/18 07:25> Results - Vital Signs Recent Vital Signs: Last Vital Signs Temp 98.5 F 09/28/18 01:57 Pulse 92 H 09/28/18 01:57 Resp 20 09/28/18 01:57 BP 124/72 09/28/18 01:57 Pulse Ox 99 09/28/18 04:20 - Labs Result Diagrams: 09/27/18 15:48 09/27/18 15:48 Labs: Laboratory Results - last 24 hr 09/27/18 09/27/18 09/27/18 15:48 15:48 15:48 WBC 15.6 H RBC 4.34 L Hgb 13.6 Hct 40.5 MCV 93.2 MCH 31.4 H MCHC 33.7 RDW 14.2 Plt Count 207 MPV 9.3 Neut % (Auto) 78.0 H Lymph % (Auto) 10.7 L Early % (Auto) 9.2 Eos % (Auto) 1.6 Baso % (Auto) 0.5 Neut # (Auto) 12.1 H Lymph # (Auto) 1.7 Early # (Auto) 1.4 H Eos # (Auto) 0.2 Baso # (Auto) 0.1 PT 16.9 H INR 1.5 APTT 36.3 H Sodium 131 L Potassium 3.9 Chloride 95 L Carbon Dioxide 26 Anion Gap 14 BUN 17 Creatinine 0.8 Est GFR ( Amer) > 60 Est GFR (Non-Af Amer) > 60 Random Glucose 163 H D Calcium 8.8 Total Bilirubin 7.1 H AST 107 H D ALT 47 Alkaline Phosphatase 224 H D Total Protein 7.8 Albumin 3.3 L Globulin 4.5 H Albumin/Globulin Ratio 0.7 L Lipase 246 Urine Color Urine Clarity Urine pH Ur Specific [place] Urine Protein Urine Glucose (UA) Urine Ketones Urine Blood Urine Nitrate Urine Bilirubin Urine Urobilinogen Ur Leukocyte Esterase Urine WBC (Auto) Urine RBC (Auto) Hyaline Casts Urine Opiates Screen Urine Methadone Screen Ur Barbiturates Screen Ur Phencyclidine Scrn Ur Amphetamines Screen U Benzodiazepines Scrn U Oth Cocaine Metabols U Cannabinoids Screen Alcohol, Quantitative < 10 Blood Type Antibody Screen 09/27/18 09/27/18 09/27/18 16:26 16:26 19:47 WBC RBC Hgb Hct MCV MCH MCHC RDW Plt Count MPV Neut % (Auto) Lymph % (Auto) Early % (Auto) Eos % (Auto) Baso % (Auto) Neut # (Auto) Lymph # (Auto) Early # (Auto) Eos # (Auto) Baso # (Auto) PT INR APTT Sodium Potassium Chloride Carbon Dioxide Anion Gap BUN Creatinine Est GFR ( Amer) Est GFR (Non-Af Amer) Random Glucose Calcium Total Bilirubin AST ALT Alkaline Phosphatase Total Protein Albumin Globulin Albumin/Globulin Ratio Lipase Urine Color C[place]in Urine Clarity Clear Urine pH 6.0 Ur Specific [place] 1.010 Urine Protein Negative Urine Glucose (UA) Normal Urine Ketones Negative Urine Blood Negative Urine Nitrate Negative Urine Bilirubin 1+ H Urine Urobilinogen 4.0 Ur Leukocyte Esterase Neg Urine WBC (Auto) 1 Urine RBC (Auto) < 1 Hyaline Casts >20 H Urine Opiates Screen Negative Urine Methadone Screen Negative Ur Barbiturates Screen Negative Ur Phencyclidine Scrn Negative Ur Amphetamines Screen Negative U Benzodiazepines Scrn Negative U Oth Cocaine Metabols Negative U Cannabinoids Screen Negative Alcohol, Quantitative Blood Type O NEGATIVE Antibody Screen Negative Attending/Attestation - Attestation I have personally seen and examined this patient.: Yes I have fully participated in the care of the patient.: Yes I have reviewed all pertinent clinical information: Yes Notes (Text): 09/28/18 07:21 Medical attending: Patient was seen and examined by me as well. Agree with the above note by the resident The patient was not in any acute distress. He has the abdominal ascetics as before. He says he is now living with his "" and that he has been taking his medications. The ER has already notified IR and so we ordered Vit K as well as FFP as the INR was a little elevated As mentioned previously there is a history of hepatitis C, liver cirrhosis and also there is a liver mass noted on previous images as well He has a high MELD score, so we have emphasized this to him Fransisco Nunez
--- NOTE | 2018-09-27 16:30 | C.PDOC ---
History Of Present Illness 37 year old male presents to ED with complaint of belly distension and discomfort for the past 2 days. Patient has a PMHx of alcohol hepatic cirrhosis. Patient recently had an abdominal paracentesis. Patient is not observing fluids restricted diet and claims to no longer be drinking. He denies nausea, vomiting, and diarrhea. Time Seen by Provider: 09/27/18 15:31 Chief Complaint (Nursing): Abdominal Pain History Per: Patient History/Exam Limitations: no limitations Onset/Duration Of Symptoms: Days (2) Current Symptoms Are (Timing): Still Present Location Of Pain/Discomfort: Diffuse Radiation Of Pain To:: None Quality Of Discomfort: "Pain" Associated Symptoms: denies: Fever, Chills, Nausea, Vomiting, Diarrhea Exacerbating Factors: None Alleviating Factors: None Past Medical History Reviewed: Historical Data, Nursing Documentation, Vital Signs Vital Signs: Last Vital Signs Temp 99.1 F 09/27/18 15:20 Pulse 130 H 09/27/18 15:20 Resp 22 09/27/18 15:35 BP 129/96 H 09/27/18 15:20 Pulse Ox 100 09/27/18 15:35 - Medical History PMH: Asthma, Bipolar Disorder, Hepatitis, Schizophrenia, Seizures (ETOH related) Denies: Diabetes, HIV, HTN, Chronic Kidney Disease, Sexually Transmitted Disease Surgical History: No Surg Hx - [facility] Procedures DETOXIFICATION SERVICES FOR SUBSTANCE ABUSE TREATMENT (02/11/18) DRAINAGE OF PERITONEAL CAVITY, PERCUTANEOUS APPROACH (09/13/18) GROUP AWARD MACHINE OPERATOR FOR SUBSTANCE ABUSE TREATMENT, PSYCHOEDUCATION (05/22/17) GROUP AWARD MACHINE OPERATOR FOR SUBSTANCE ABUSE, COGNITIVE BEHAVIORAL (05/22/17) GROUP PSYCHOTHERAPY (02/11/18) INDIV PSYCHOTHERAPY FOR SUBSTANCE ABUSE TREATMENT, SUPPORT (02/11/18) INDIV PSYCHOTHERAPY FOR SUBSTANCE ABUSE, COGNITIV BEHAVIORAL (02/11/18) INDIV PSYCHOTHERAPY FOR SUBSTANCE ABUSE, PSYCHOEDUCATION (02/11/18) INDIVIDUAL PSYCHOTHERAPY, COGNITIVE-BEHAVIORAL (02/11/18) INDIVIDUAL PSYCHOTHERAPY, PSYCHOPHYSIOLOGICAL (02/11/18) INDIVIDUAL PSYCHOTHERAPY, SUPPORTIVE (02/11/18) Family History: States: Unknown Family Hx - Social History Hx Tobacco Use: No Hx Alcohol Use: No (last drink 08/2018) Hx Substance Use: No - Immunization History Hx Tetanus Toxoid Vaccination: Yes Hx Influenza Vaccination: Yes Hx Pneumococcal Vaccination: Yes Review Of Systems Constitutional: Negative for: Fever, Chills, Weakness Gastrointestinal: Positive for: Abdominal Pain (abdominal distension). Negative for: Nausea, Vomiting, Diarrhea, Constipation, Melena, Hematochezia Genitourinary: Negative for: Dysuria, Frequency, Hematuria Musculoskeletal: Negative for: Back Pain Neurological: Negative for: Weakness, Numbness Physical Exam - Physical Exam Appears: Non-toxic, Other (temporal wasting, small stature) Skin: Normal Color, Warm, Dry Head: Atraumatic, Normacephalic Neck: Normal ROM, Supple Chest: Symmetrical, No Deformity Cardiovascular: Rhythm Regular, No Murmur Respiratory: No Accessory Muscle Use, No Rales, No Rhonchi, No Wheezing Gastrointestinal/Abdominal: Ascites, Other (abdominal tension; + caput medusae) Extremity: Capillary Refill (<2 seconds), Swelling (mild bilateral lower extremity edema) Pulses: Left Dorsalis Pedis: Normal, Right Dorsalis Pedis: Normal Neurological/Psych: Oriented x3, Normal Speech, Normal Cognition ED Course And Treatment - Laboratory Results Result Diagrams: 09/27/18 15:48 09/27/18 15:48 Lab Results: PT 16.9 SECONDS (9.7-12.2) H 09/27/18 15:48 INR 1.5 09/27/18 15:48 APTT 36.3 SECONDS (21-34) H 09/27/18 15:48 Total Bilirubin 7.1 mg/dL (0.2-1.3) H 09/27/18 15:48 AST 107 U/L (17-59) H D 09/27/18 15:48 ALT 47 U/L (21-72) 09/27/18 15:48 Alkaline Phosphatase 224 U/L (38-126) H D 09/27/18 15:48 Total Protein 7.8 g/dL (6.3-8.3) 09/27/18 15:48 Albumin 3.3 g/dL (3.5-5.0) L 09/27/18 15:48 Globulin 4.5 gm/dL (2.2-3.9) H 09/27/18 15:48 Albumin/Globulin Ratio 0.7 (1.0-2.1) L 09/27/18 15:48 Lipase 246 U/L (23-300) 09/27/18 15:48 Lab Interpretation: Abnormal (+ leukocytosis (less than prior adm this week), LFT's baseline) ECG Interpretation: Normal O2 Sat by Pulse Oximetry: 100 (in RA) Pulse Ox Interpretation: Normal - Radiology CXR: Interpreted by Me CXR Interpretation: Yes: No Acute Disease Progress Note: Labs ordered with drug screen ,UA, and CBC. EKG and CXR ordered for patient. Reevaluation Time: 16:23 Reassessment Condition: Unchanged - Physician Consult Information Outcome Of Conversation: 1615: d/w Dr. Padilla- IR- will tap in AM. 1620: d/w Dr. Nunez, Hospitalist covering [facility] Care pts, ok to med/surg Obs Medical Decision Making Medical Decision Making: large abd ascites due to hepatic cirrhosis poor insight into fluid restricted diet pending large vol abd paracentesis in AM with IR stable enough and no hypotension to require STAT paracentesis LOW susp of SBP, no fever, no sig new belly pain Defer Abx for now Disposition Doctor Will See Patient In The: Hospital Counseled Patient/Family Regarding: Studies Performed, Diagnosis - Disposition Disposition: HOSPITALIZED Disposition Time: 16:30 Condition: FAIR - Clinical Impression Clinical Impression: Ascites due to alcoholic cirrhosis - Scribe Statement The provider has reviewed the documentation as recorded by the Scribe (Mely Klein) All medical record entries made by the Scribe were at my direction and pe rsonally dictated by me. I have reviewed the chart and agree that the record accurately reflects my personal performance of the history, physical exam, medical decision making, and the department course for this patient. I have also personally directed, reviewed, and agree with the discharge instructions and disposition.
[2018-09-27 16:54] LABS: URINE BILIRUBIN 1+ (NEGATIVE); URINE BLOOD NEGATIVE (NEGATIVE); URINE CLARITY Clear (Clear); URINE COLOR Amber (YELLOW); URINE GLUCOSE (UA) NORMAL (Normal); URINE HYALINE CAST >20 /lpf (0-2); URINE LEUKOCYTE ESTERASE NEG Leu/uL (Negative); URINE PROTEIN NEGATIVE (NEGATIVE)
[2018-09-27 17:00] LABS: BARBITURATES, UR NEGATIVE (NEGATIVE); BENZODIAZEPINES, UR NEGATIVE (NEGATIVE); OPIATES, UR NEGATIVE (NEGATIVE); PHENCYCLIDINE, UR NEGATIVE (NEGATIVE)
[2018-09-27] MEDS: Multivitamin With Minerals Tab PO SCH (17:44)
[2018-09-27] MEDS ORDERED: Albumin Human 25% (12.5 gm/50 ml) IV ONE (18:00)
[2018-09-27 18:43] VITALS: RESP 20
[2018-09-27] MEDS ORDERED: Phytonadione 10 mg/ml Inj (Adult) SC ONE (20:00)
[2018-09-28 07:37] LABS: BASO # 0.1 K/uL (0.0-0.2); BASO % 0.5 % (0.0-2.0); EOS # 0.4 K/uL (0.0-0.7); EOS % 3.1 % (0.0-4.0); HEMOGLOBIN 11.7 g/dL (12.0-18.0); LYMPH # 1.7 K/uL (1.0-4.3); MEAN CELL VOLUME 92.8 fL (80.0-94.0); MEAN CORPUSCULAR HEMOGLOBIN 32.2 pg (27.0-31.0); MEAN CORPUSCULAR HGB CONC 34.7 g/dL (33.0-37.0); MEAN PLATELET VOLUME 9.4 fL (7.2-11.7); MONO # 1.5 K/uL (0.0-0.8); MONO % 12.9 % (0.0-10.0); NEUT # 7.8 K/uL (1.8-7.0); NEUT % 68.5 % (50.0-75.0); RBC 3.63 Mil/uL (4.40-5.90); RED CELL DISTRIBUTION WIDTH 14.3 % (11.5-14.5); WHITE BLOOD COUNT 11.4 K/uL (4.8-10.8)
[2018-09-28 07:54] LABS: ALB/GLOB RATIO 0.8 (1.0-2.1); ALBUMIN 3.1 g/dL (3.5-5.0); ALT/SGPT 49 U/L (21-72); AST/SGOT 97 U/L (17-59); BLOOD UREA NITROGEN 16 mg/dL (9-20); CALCIUM 8.8 mg/dl (8.6-10.4); GFR NON-AFRICAN AMERICAN > 60
[2018-09-28] MEDS: Multivitamin With Minerals Tab PO SCH (09:14)
--- NOTE | 2018-09-28 09:18 | CP.PCM.PN ---
<Thomas Gary - Last Filed: 09/28/18 09:15> Subjective - Date & Time of Evaluation Date of Evaluation: 09/28/18 Time of Evaluation: : - Subjective Subjective: PGY-[address] Nunez Patient seen and examined at bedside. No acute events overnight. Patient c/o moderate diffuse abdominal pain. Plan for thoracentesis later today. Denies n/v/d/c, chest pain, palpitations, headache, SOB, dysuria. Objective - Vital Signs/Intake and Output Vital Signs (last 24 hours): Temp Pulse Resp BP Pulse Ox 98 F 92 H 20 114/76 97 09/28/18 07:00 09/28/18 07:00 09/28/18 07:00 09/28/18 09:15 09/28/18 07:00 Intake and Output: 09/28/18 09/28/18 06:59 18:59 Intake Total 350 Balance 350 - Medications Medications: Current Medications Furosemide (Lasix) 20 mg PO BID [facility] Last Admin: 09/28/18 09:15 Dose: 20 mg Lactulose (Enulose) 15 gm PO TID [facility] Last Admin: 09/28/18 09:15 Dose: Not Given Morphine Sulfate (Morphine) 2 mg IVP Q6H PRN PRN Reason: Pain, moderate (4-7) Last Admin: 09/28/18 04:05 Dose: 2 mg Multivitamins/Minerals (Therapeutic-M Tab) 1 tab PO DAILY [facility] Last Admin: 09/28/18 09:14 Dose: 1 tab Nicotine (Nicoderm Cq) 1 patch TD DAILY [facility] Spironolactone (Aldactone) 25 mg PO BID [facility] Last Admin: 09/28/18 09:14 Dose: 25 mg - Labs Labs: 09/28/18 07:31 09/28/18 07:31 PT 16.9 SECONDS (9.7-12.2) H 09/27/18 15:48 INR 1.5 09/27/18 15:48 APTT 36.3 SECONDS (21-34) H 09/27/18 15:48 - Constitutional Appears: Non-toxic, No Acute Distress - Head Exam Head Exam: ATRAUMATIC, NORMOCEPHALIC - Eye Exam Eye Exam: EOMI, Normal appearance, PERRL - ENT Exam ENT Exam: Mucous Membranes Moist - Respiratory Exam Respiratory Exam: Clear to Ausculation Bilateral, NORMAL BREATHING PATTERN. absent: Rhonchi, Wheezes - Cardiovascular Exam Cardiovascular Exam: RRR, +S1, +S2 - GI/Abdominal Exam GI & Abdominal Exam: Distended (ascites), Tenderness (diffuse), Hypoactive Bowel Sounds. absent: Hernia, Mass, Rebound - Neurological Exam Neurological Exam: Alert, Awake, CN II-XII Intact, Oriented x3 - Psychiatric Exam Psychiatric exam: Normal Affect, Normal Mood - Skin Skin Exam: Dry, Intact Assessment and Plan - Assessment and Plan (Free Text) Assessment: Patient is a 37 year old male with a past medical history of cirrhosis, hepatitis C, and cystic fibrosis, who is admitted for ascites. Plan: Cirrhosis, Ascites - Hx of Hepatitis C - CXR: no acute findings - IR, Dr. Padilla consulted for paracentesis - --F/u for paracentesis today - Albumin 12.5gm IV x1, vitamin K 10mg SC x1, FFP x1 - Continue home medications: Spironolactone 25mg PO daily, lactulose TID, furosemide 20mg po BID - Morphine 2mg IV Q6h PRN for pain - Will not order Peritoneal fluid studies, as patient had studies done on last admission 09/19/18 - Child-Lugo score: 10 points ( Life Expectancy : 1-3 years, Abdominal surgery tangela-operative mortality: 82%) - MELD score: 22 (19.6% estimated 3-Month Mortality) Imaging from previous admission: * Chest/Abd/Pelv CT (09/11/18): Small pericardial effusion. Subcarinal lymph node measures approximately 16 mm in short axis. Additional scattered sub cm mediastinal and axillary adenopathy. Please note evaluation for adenopathy, in particular hilar adenopathy, limited due to absence of IV contrast. Extensive subpleural bulla predominantly in peripheral and perifissural distribution. 4 mm hepatic dome calcification, likely granuloma. Hepatomegaly. Nodular hepatic contour may be seen in setting of cirrhosis. Region of ill-defined low-attenuation hypodensity seen within the inferior right hepatic lobe suspicious for neoplasm are not adequately evaluated on this noncontrast study and best seen on CT of the abdomen and pelvis with contrast performed 09/05/18. Splenomegaly. Contracted gallbladder limits evaluation. Gallbladder wall thickening/pericholecystic edema. Mild pancreatic prominence possibly edematous. Correlate clinically for possibility of pancreatitis including amylase and lipase levels. Too small to characterize exophytic left renal hypodensity measures approximately 5 mm. Extensive abdominal and pelvic ascites. * Liver CT 09/24/18: No hepatic neoplasm. Hepatic cirrhosis. Mild splenomegaly. Extensive ascites. Mild left upper quadrant varices. Nonspecific mural thickening of multiple loops of jejunum. This may be seen in association with hypoalbuminemia but is nonspecific. Additional nonacute findings. See full note. Alcoholic hepatitis, chronic - Maddrey discriminant function score: 34.2 (patient may benefit from glucocorticoid therapy) - AST/ALT: 107/47 - Avoid hepatotoxic agents - Continue to monitor Elevated Bilirubin, acute - Total bilirubin at admission 7.1 - Continue to monitor History of alcohol abuse, chronic - Counselled patient on alcohol cessation - Patient's last drink was one month ago Prophylaxis - DVT: hold chemical anticoagulation; SCDs - GI: not indicated at this time Patient seen and case discussed with attending, Dr. Mayra Gary, PGY-1 <Fransisco Nunez H - Last Filed: 09/28/18 15:15> Objective - Vital Signs/Intake and Output Vital Signs (last 24 hours): Temp Pulse Resp BP Pulse Ox 98 F 92 H 20 114/76 97 09/28/18 07:00 09/28/18 07:00 09/28/18 07:00 09/28/18 09:15 09/28/18 07:00 Intake and Output: 09/28/18 09/28/18 06:59 18:59 Intake Total 350 350 Balance 350 350 - Medications Medications: Current Medications Albumin Human (Albumin Human 25% (12.5 Gm/50 Ml)) 12.5 gm IV ONCE [facility] Stop: 09/30/18 14:01 Last Admin: 09/28/18 14:04 Dose: 12.5 gm Furosemide (Lasix) 20 mg PO BID [facility] Last Admin: 09/28/18 09:15 Dose: 20 mg Lactulose (Enulose) 15 gm PO TID [facility] Last Admin: 09/28/18 13:26 Dose: Not Given Morphine Sulfate (Morphine) 2 mg IVP Q6H PRN PRN Reason: Pain, moderate (4-7) Last Admin: 09/28/18 10:18 Dose: 2 mg Multivitamins/Minerals (Therapeutic-M Tab) 1 tab PO DAILY [facility] Last Admin: 09/28/18 09:14 Dose: 1 tab Nicotine (Nicoderm Cq) 1 patch TD DAILY [facility] Last Admin: 09/28/18 09:15 Dose: Not Given Spironolactone (Aldactone) 25 mg PO BID [facility] Last Admin: 09/28/18 09:14 Dose: 25 mg - Labs Labs: 09/28/18 07:31 09/28/18 07:31 PT 16.9 SECONDS (9.7-12.2) H 09/27/18 15:48 INR 1.5 09/27/18 15:48 APTT 36.3 SECONDS (21-34) H 09/27/18 15:48 Attending/Attestation - Attestation I have personally seen and examined this patient.: Yes I have fully participated in the care of the patient.: Yes I have reviewed all pertinent clinical information, including history, physical exam and plan: Yes Notes (Text): 09/28/18 15:13 Medical attending: Patient was seen and examined by me. Agree with the above note by the resident The patient was not in any acute distress when I came and saw him. Later in the day he had the paracentesis done. We will be giving IV albumin replacments now and later in the day the plan is to discharge him to home Considering his MELD score he will probably be comming back to the hospital repeatedly because of the ascities fluid. Fransisco Nunez
[2018-09-28] MEDS ORDERED: Lidocaine 2% MPF (5 ml) Inj ONE (10:55)
--- NOTE | 2018-09-28 11:53 | PCM.SURG1 ---
Surgeon's Initial Post Op Note - Surgeon's Notes Surgeon: Evaristo [employer] Fighter: None Type of Anesthesia: Local Pre-Operative Diagnosis: Ascites Operative Findings: Ascites Post-Operative Diagnosis: Ascites Operation Performed: Paracentesis Specimen/Specimens Removed: Approx 3200cc of clear pale yellow fluis aspirated Estimated Blood Loss: EBL {In ML}: 1 Date of Surgery/Procedure: 09/28/18 Time of Surgery/Procedure: 11:45
--- NOTE | 2018-09-28 12:44 | CP.PCM.DIS ---
<Thomas Gary - Last Filed: 09/28/18 12:38> Provider - Provider Date of Admission: 09/27/18 16:31 Attending physician: Fransisco Nunez DO Consults: 09/27/18 15:39 Radiology Consult Stat Comment: abd ascites Consulting Provider: Raji Padilla Consulting Physician: Raji Padilla Reason for Consult: abd ascites Time Spent in preparation of Discharge (in minutes): 45 Diagnosis - Discharge Diagnosis (1) Ascites due to alcoholic cirrhosis Status: Chronic Hospital Course - Lab Results Lab Results: Most Recent Lab Values WBC 11.4 K/uL (4.8-10.8) H 09/28/18 07:31 RBC 3.63 Mil/uL (4.40-5.90) L 09/28/18 07:31 Hgb 11.7 g/dL (12.0-18.0) L 09/28/18 07:31 Hct 33.6 % (35.0-51.0) L 09/28/18 07:31 MCV 92.8 fL (80.0-94.0) 09/28/18 07:31 MCH 32.2 pg (27.0-31.0) H 09/28/18 07:31 MCHC 34.7 g/dL (33.0-37.0) 09/28/18 07:31 RDW 14.3 % (11.5-14.5) 09/28/18 07:31 Plt Count 159 K/uL (130-400) 09/28/18 07:31 MPV 9.4 fL (7.2-11.7) 09/28/18 07:31 Neut % (Auto) 68.5 % (50.0-75.0) 09/28/18 07:31 Lymph % (Auto) 15.0 % (20.0-40.0) L 09/28/18 07:31 [place] % (Auto) 12.9 % (0.0-10.0) H 09/28/18 07:31 Eos % (Auto) 3.1 % (0.0-4.0) 09/28/18 07:31 Baso % (Auto) 0.5 % (0.0-2.0) 09/28/18 07:31 Neut # (Auto) 7.8 K/uL (1.8-7.0) H 09/28/18 07:31 Lymph # (Auto) 1.7 K/uL (1.0-4.3) 09/28/18 07:31 [place] # (Auto) 1.5 K/uL (0.0-0.8) H 09/28/18 07:31 Eos # (Auto) 0.4 K/uL (0.0-0.7) 09/28/18 07:31 Baso # (Auto) 0.1 K/uL (0.0-0.2) 09/28/18 07:31 PT 16.9 SECONDS (9.7-12.2) H 09/27/18 15:48 INR 1.5 09/27/18 15:48 APTT 36.3 SECONDS (21-34) H 09/27/18 15:48 Sodium 132 mmol/L (132-148) 09/28/18 07:31 Potassium 4.2 mmol/L (3.6-5.2) 09/28/18 07:31 Chloride 94 mmol/L (98-107) L 09/28/18 07:31 Carbon Dioxide 29 mmol/L (22-30) 09/28/18 07:31 Anion Gap 13 (10-20) 09/28/18 07:31 BUN 16 mg/dL (9-20) 09/28/18 07:31 Creatinine 0.8 mg/dL (0.8-1.5) 09/28/18 07:31 Est GFR ( Amer) > 60 09/28/18 07:31 Est GFR (Non-Af Amer) > 60 09/28/18 07:31 Random Glucose 77 mg/dL (75-110) D 09/28/18 07:31 Calcium 8.8 mg/dl (8.6-10.4) 09/28/18 07:31 Phosphorus 4.6 mg/dL (2.5-4.5) H 09/28/18 07:31 Magnesium 1.5 mg/dL (1.6-2.3) L 09/28/18 07:31 Total Bilirubin 6.3 mg/dL (0.2-1.3) H 09/28/18 07:31 AST 97 U/L (17-59) H 09/28/18 07:31 ALT 49 U/L (21-72) 09/28/18 07:31 Alkaline Phosphatase 192 U/L (38-126) H 09/28/18 07:31 Total Protein 7.2 g/dL (6.3-8.3) 09/28/18 07:31 Albumin 3.1 g/dL (3.5-5.0) L 09/28/18 07:31 Globulin 4.1 gm/dL (2.2-3.9) H 09/28/18 07:31 Albumin/Globulin Ratio 0.8 (1.0-2.1) L 09/28/18 07:31 Lipase 246 U/L (23-300) 09/27/18 15:48 Urine Color [place] (YELLOW) 09/27/18 16:26 Urine Clarity Clear (Clear) 09/27/18 16:26 Urine pH 6.0 (5.0-8.0) 09/27/18 16:26 Ur Specific [place] 1.010 (1.003-1.030) 09/27/18 16:26 Urine Protein Negative mg/dL (NEGATIVE) 09/27/18 16:26 Urine Glucose (UA) Normal mg/dL (Normal) 09/27/18 16:26 Urine Ketones Negative mg/dL (NEGATIVE) 09/27/18 16:26 Urine Blood Negative (NEGATIVE) 09/27/18 16:26 Urine Nitrate Negative (NEGATIVE) 09/27/18 16:26 Urine Bilirubin 1+ (NEGATIVE) H 09/27/18 16:26 Urine Urobilinogen 4.0 mg/dL (0.2-1.0) 09/27/18 16:26 Ur Leukocyte Esterase Neg Manish/uL (Negative) 09/27/18 16:26 Urine WBC (Auto) 1 /hpf (0-5) 09/27/18 16:26 Urine RBC (Auto) < 1 /hpf (0-3) 09/27/18 16:26 Hyaline Casts >20 /lpf (0-2) H 09/27/18 16:26 Urine Opiates Screen Negative (NEGATIVE) 09/27/18 16:26 Urine Methadone Screen Negative (NEGATIVE) 09/27/18 16:26 Ur Barbiturates Screen Negative (NEGATIVE) 09/27/18 16:26 Ur Phencyclidine Scrn Negative (NEGATIVE) 09/27/18 16:26 Ur Amphetamines Screen Negative (NEGATIVE) 09/27/18 16:26 U Benzodiazepines Scrn Negative (NEGATIVE) 09/27/18 16:26 U Oth Cocaine Metabols Negative (NEGATIVE) 09/27/18 16:26 U Cannabinoids Screen Negative (NEGATIVE) 09/27/18 16:26 Alcohol, Quantitative < 10 mg/dl (0-10) 09/27/18 15:48 Blood Type O NEGATIVE 09/27/18 19:47 Antibody Screen Negative 09/27/18 19:47 - Hospital Course Hospital Course: HPI Patient is a 37 year old male with a past medical history of cirrhosis, hepatitis C, cystic fibrosis, presents for increasing abdominal distention. Patient was recently admitted on 09/19/18 for similar symptoms and had paracentesis done. Patient states abdominal distention started on 09/22/18. Distention worsened today. Associated symptoms include 10/10 abdominal pain and difficulty breathing. Patient states he has leg swelling from time to time, but not presently. Patient also complains of 20 pound weight loss in the past month. Denies fever, chills, nausea, vomiting, diarrhea, constipation, chest pain, cough, dizziness, lightheadedness. Patient reports compliance with his medications. States he quit drinking one month ago. Hospital Course Patient with history severe alcoholic liver cirrhosis was hospitalized with worsened abdominal ascites. Patient had been discharge one week prior for cirrhosis/ascites and ETOH detox. Patient did not require detox on this hospitalization, but did require IR (Dr. Loera) paracentesis of his ascites. Patiient was admitted overnight for observation and discharged the following day following IR drainage of the fluid. No fluid lab analysis was sent as patient just had recent paracentesis with lab analysis. Imaging -CXR 09/28: No active disease Please note this is just a summary of the events of this hospitalization. For details, please see complete medical records. Discharge Exam - Head Exam Head Exam: ATRAUMATIC, NORMOCEPHALIC - Eye Exam Eye Exam: EOMI, Normal appearance - Respiratory Exam Respiratory Exam: Clear to PA & Lateral, UNREMARKABLE. absent: Rales, Rhonchi, Wheezes - Cardiovascular Exam Cardiovascular Exam: REGULAR RHYTHM, +S1, +S2 - GI/Abdominal Exam GI & Abdominal Exam: Distended, Hypoactive Bowel Sounds, Soft, Tenderness (diffuse mild tenderness). absent: Mass, Rebound Additional comments: ascites - Extremities Exam Extremities exam: normal inspection - Neurological Exam Neurological exam: Alert, CN II-XII Intact - Psychiatric Exam Psychiatric exam: Normal Affect, Normal Mood - Skin Skin Exam: Dry, Intact Discharge Plan - Follow Up Plan Condition: FAIR Disposition: HOME/ ROUTINE Instructions: Cirrhosis (DC), Alcohol Abuse and Alcoholism (DC) Additional Instructions: Patient has been cleared for discharge per Dr. Nunez (after receiving final dose of Albumin today) Please continue to take your home medications as prescribed (no changes have been made to your home medications) Please follow up with your primary care doctor within 7-10 days of discharge Please return to ED if symptoms recur or worsen. Referrals: Deborah Faustin MD [Staff Provider] - <Fransisco Nunez - Last Filed: 09/28/18 15:39> Provider - Provider Date of Admission: 09/27/18 16:31 Attending physician: Fransisco Nunez DO Consults: 09/27/18 15:39 Radiology Consult Stat Comment: abd ascites Consulting Provider: Raji Padilla Consulting Physician: Raji Padilla Reason for Consult: [facility] ascites Hospital Course - Lab Results Lab Results: Most Recent Lab Values WBC 11.4 K/uL (4.8-10.8) H 09/28/18 07:31 RBC 3.63 Mil/uL (4.40-5.90) L 09/28/18 07:31 Hgb 11.7 g/dL (12.0-18.0) L 09/28/18 07:31 Hct 33.6 % (35.0-51.0) L 09/28/18 07:31 MCV 92.8 fL (80.0-94.0) 09/28/18 07:31 MCH 32.2 pg (27.0-31.0) H 09/28/18 07:31 MCHC 34.7 g/dL (33.0-37.0) 09/28/18 07:31 RDW 14.3 % (11.5-14.5) 09/28/18 07:31 Plt Count 159 K/uL (130-400) 09/28/18 07:31 MPV 9.4 fL (7.2-11.7) 09/28/18 07:31 Neut % (Auto) 68.5 % (50.0-75.0) 09/28/18 07:31 Lymph % (Auto) 15.0 % (20.0-40.0) L 09/28/18 07:31 [place] % (Auto) 12.9 % (0.0-10.0) H 09/28/18 07:31 Eos % (Auto) 3.1 % (0.0-4.0) 09/28/18 07:31 Baso % (Auto) 0.5 % (0.0-2.0) 09/28/18 07:31 Neut # (Auto) 7.8 K/uL (1.8-7.0) H 09/28/18 07:31 Lymph # (Auto) 1.7 K/uL (1.0-4.3) 09/28/18 07:31 [place] # (Auto) 1.5 K/uL (0.0-0.8) H 09/28/18 07:31 Eos # (Auto) 0.4 K/uL (0.0-0.7) 09/28/18 07:31 Baso # (Auto) 0.1 K/uL (0.0-0.2) 09/28/18 07:31 PT 16.9 SECONDS (9.7-12.2) H 09/27/18 15:48 INR 1.5 09/27/18 15:48 APTT 36.3 SECONDS (21-34) H 09/27/18 15:48 Sodium 132 mmol/L (132-148) 09/28/18 07:31 Potassium 4.2 mmol/L (3.6-5.2) 09/28/18 07:31 Chloride 94 mmol/L (98-107) L 09/28/18 07:31 Carbon Dioxide 29 mmol/L (22-30) 09/28/18 07:31 Anion Gap 13 (10-20) 09/28/18 07:31 BUN 16 mg/dL (9-20) 09/28/18 07:31 Creatinine 0.8 mg/dL (0.8-1.5) 09/28/18 07:31 Est GFR ( Amer) > 60 09/28/18 07:31 Est GFR (Non-Af Amer) > 60 09/28/18 07:31 Random Glucose 77 mg/dL (75-110) D 09/28/18 07:31 Calcium 8.8 mg/dl (8.6-10.4) 09/28/18 07:31 Phosphorus 4.6 mg/dL (2.5-4.5) H 09/28/18 07:31 Magnesium 1.5 mg/dL (1.6-2.3) L 09/28/18 07:31 Total Bilirubin 6.3 mg/dL (0.2-1.3) H 09/28/18 07:31 AST 97 U/L (17-59) H 09/28/18 07:31 ALT 49 U/L (21-72) 09/28/18 07:31 Alkaline Phosphatase 192 U/L (38-126) H 09/28/18 07:31 Total Protein 7.2 g/dL (6.3-8.3) 09/28/18 07:31 Albumin 3.1 g/dL (3.5-5.0) L 09/28/18 07:31 Globulin 4.1 gm/dL (2.2-3.9) H 09/28/18 07:31 Albumin/Globulin Ratio 0.8 (1.0-2.1) L 09/28/18 07:31 Lipase 246 U/L (23-300) 09/27/18 15:48 Urine Color [place] (YELLOW) 09/27/18 16:26 Urine Clarity Clear (Clear) 09/27/18 16:26 Urine pH 6.0 (5.0-8.0) 09/27/18 16:26 Ur Specific [place] 1.010 (1.003-1.030) 09/27/18 16:26 Urine Protein Negative mg/dL (NEGATIVE) 09/27/18 16:26 Urine Glucose (UA) Normal mg/dL (Normal) 09/27/18 16:26 Urine Ketones Negative mg/dL (NEGATIVE) 09/27/18 16:26 Urine Blood Negative (NEGATIVE) 09/27/18 16:26 Urine Nitrate Negative (NEGATIVE) 09/27/18 16:26 Urine Bilirubin 1+ (NEGATIVE) H 09/27/18 16:26 Urine Urobilinogen 4.0 mg/dL (0.2-1.0) 09/27/18 16:26 Ur Leukocyte Esterase Neg Manish/uL (Negative) 09/27/18 16:26 Urine WBC (Auto) 1 /hpf (0-5) 09/27/18 16:26 Urine RBC (Auto) < 1 /hpf (0-3) 09/27/18 16:26 Hyaline Casts >20 /lpf (0-2) H 09/27/18 16:26 Urine Opiates Screen Negative (NEGATIVE) 09/27/18 16:26 Urine Methadone Screen Negative (NEGATIVE) 09/27/18 16:26 Ur Barbiturates Screen Negative (NEGATIVE) 09/27/18 16:26 Ur Phencyclidine Scrn Negative (NEGATIVE) 09/27/18 16:26 Ur Amphetamines Screen Negative (NEGATIVE) 09/27/18 16:26 U Benzodiazepines Scrn Negative (NEGATIVE) 09/27/18 16:26 U Oth Cocaine Metabols Negative (NEGATIVE) 09/27/18 16:26 U Cannabinoids Screen Negative (NEGATIVE) 09/27/18 16:26 Alcohol, Quantitative < 10 mg/dl (0-10) 09/27/18 15:48 Blood Type O NEGATIVE 09/27/18 19:47 Antibody Screen Negative 09/27/18 19:47 Attending/Attestation - Attestation I have personally seen and examined this patient.: Yes I have fully participated in the care of the patient.: Yes I have reviewed all pertinent clinical information, including history, physical exam and plan: Yes Notes (Text): 09/28/18 15:26 Medical attending: Patient was seen and examined by me with the medical residents. The above note by the resident was reviewed by me and agree with the above. The patient was not in any acute distress when we came and saw. He later then went for the paracentesis. After this he recivied IV albumin 12.5 He will need to continuie with his lasix and aldactone as well As mentioned previously he has a very high MELD score from a history of liver cirrhosis and, hepatitis C, and liver mass. His prognosis for the next fiver years is poor. He explains that he lives with his "" now and that he is avoiding alcohol. Fransisco Nunez
[2018-09-28] MEDS: Albumin Human 25% (12.5 gm/50 ml) IV SCH ×3 (13:28→14:04)
[2018-09-28 16:18] VITALS: PULSE 90; TEMP 98.8; O2SAT 95
[2018-09-28 17:26] VITALS: BP 102/63
--- NOTE | 2018-09-29 14:17 | CARD ---
APPROVED REPORT Date of service: 09/27/2018 EKG Measurement Heart [id number] CT [id number] <Conclusion> Sinus tachycardia Septal infarct, age undetermined Abnormal ECG
== END 2018-09-28 18:56 | disposition home or self-care (01) ==
LOC: C.ER 15:09 → C.9E 16:31 → C.3T 17:36
PROVIDERS: ADMIT Hospitalist; ATTEND Hospitalist
DX: K70.31 Alcoholic cirrhosis of liver with ascites (principal); R94.31 Abnormal electrocardiogram [ECG] [EKG]; E84.9 Cystic fibrosis, unspecified; Z86.19 Personal history of other infectious and parasitic diseases; Z79.899 Other long term (current) drug therapy; F17.210 Nicotine dependence, cigarettes, uncomplicated; J45.909 Unspecified asthma, uncomplicated; G40.909 Epilepsy, unspecified, not intractable, without status epilepticus; F31.9 Bipolar disorder, unspecified; F20.9 Schizophrenia, unspecified
CPT/HCPCS: 36415; 36430; 49083; 71045; 80053; 80320; 80324; 80345; 80346; 80349; 80353; 80358; 80361; 81001; 83690; 83735; 83992; 84100; 85025; 85610; 85730; 86850; 86900; 93005; 96374; 99285; G0378; J2270; J3430; P9017; P9047

== ENCOUNTER 2018-10-01 10:39 | Outpatient (CLI) | payer MEDICAID | END 2018-10-01 10:40 | disposition home or self-care (01) | LOC: C.LAB 10:39 | DX: K74.60 Unspecified cirrhosis of liver (principal) ==

== ENCOUNTER 2018-10-11 12:32 | Observation (INO) | payer MEDICAID, OTHER ==
[2018-10-11 12:32] VITALS: BMI 28.3
--- NOTE | 2018-10-11 13:57 | C.PDOC ---
History Of Present Illness PGY-[address] Nuñez Patient is a 37 year old homeless male pmhx of alcohol hepatic cirrhosis, Hep C, schizophrenia, well know to the hospital service coming to the ED for abdominal discomfort and distention. Patient has been admitted to hospital on 09/27 for same symptoms and had a parecentesis then, patient complains of pulling like pain in upper right and left, and epigastric area. Denies drinking alcohol, last drink was 3 months ago, states is complaint with diet and medications. States having some yellowing in eyes, denies fever, chills, chest pain, shortness of breath, n/v/d/c or urinary symptoms <Eliel Quintana - Last Filed: 10/11/18 15:15> History Per: Patient History/Exam Limitations: no limitations Onset/Duration Of Symptoms: Days Current Symptoms Are (Timing): Still Present Location Of Pain/Discomfort: RUQ, Epigastric, LUQ Radiation Of Pain To:: None Quality Of Discomfort: Pressure Associated Symptoms: denies: Fever, Chills, Nausea, Vomiting, Diarrhea, Back Pain, Chest Pain, Constipation, Urinary Symptoms <Eliel Quintana - Last Filed: 10/11/18 15:15> <Ferdinand Nuñez - Last Filed: 10/11/18 15:44> Time Seen by Provider: 10/11/18 13:27 Chief Complaint (Nursing): Abdominal Pain Past Medical History Vital Signs: Last Vital Signs Temp 98.4 F 10/11/18 13:06 Pulse 128 H 10/11/18 13:06 Resp 24 10/11/18 13:06 BP 132/95 H 10/11/18 13:06 Pulse Ox 100 10/11/18 13:06 Primary Care Provider: Non H Provider, - Medical History PMH: Asthma, Bipolar Disorder, Hepatitis, Schizophrenia, Seizures (ETOH related) Denies: Diabetes, HIV, HTN, Chronic Kidney Disease, Sexually Transmitted Disease Surgical History: No Surg Hx - [facility] Procedures DETOXIFICATION SERVICES FOR SUBSTANCE ABUSE TREATMENT (02/11/18) DRAINAGE OF PERITONEAL CAVITY, PERCUTANEOUS APPROACH (09/13/18) GROUP SALES FLOOR MANAGER FOR SUBSTANCE ABUSE TREATMENT, PSYCHOEDUCATION (05/22/17) GROUP SALES FLOOR MANAGER FOR SUBSTANCE ABUSE, COGNITIVE BEHAVIORAL (05/22/17) GROUP PSYCHOTHERAPY (02/11/18) INDIV PSYCHOTHERAPY FOR SUBSTANCE ABUSE TREATMENT, SUPPORT (02/11/18) INDIV PSYCHOTHERAPY FOR SUBSTANCE ABUSE, COGNITIV BEHAVIORAL (02/11/18) INDIV PSYCHOTHERAPY FOR SUBSTANCE ABUSE, PSYCHOEDUCATION (02/11/18) INDIVIDUAL PSYCHOTHERAPY, COGNITIVE-BEHAVIORAL (02/11/18) INDIVIDUAL PSYCHOTHERAPY, PSYCHOPHYSIOLOGICAL (02/11/18) INDIVIDUAL PSYCHOTHERAPY, SUPPORTIVE (02/11/18) Family History: States: Unknown Family Hx - Social History Hx Tobacco Use: Yes (3-4 cigarettes/day ) Hx Alcohol Use: No (last drink 08/2018) Hx Substance Use: No - Immunization History Hx Tetanus Toxoid Vaccination: Yes Hx Influenza Vaccination: Yes Hx Pneumococcal Vaccination: Yes <Eliel Quintana - Last Filed: 10/11/18 15:15> Vital Signs: Last Vital Signs Temp 98.6 F 10/11/18 15:15 Pulse 113 H 10/11/18 15:15 Resp 20 10/11/18 15:15 BP 101/67 10/11/18 15:15 Pulse Ox 100 10/11/18 15:17 - [facility] Procedures DETOXIFICATION SERVICES FOR SUBSTANCE ABUSE TREATMENT (02/11/18) DRAINAGE OF PERITONEAL CAVITY, PERCUTANEOUS APPROACH (09/13/18) GROUP SALES FLOOR MANAGER FOR SUBSTANCE ABUSE TREATMENT, PSYCHOEDUCATION (05/22/17) GROUP SALES FLOOR MANAGER FOR SUBSTANCE ABUSE, COGNITIVE BEHAVIORAL (05/22/17) GROUP PSYCHOTHERAPY (02/11/18) INDIV PSYCHOTHERAPY FOR SUBSTANCE ABUSE TREATMENT, SUPPORT (02/11/18) INDIV PSYCHOTHERAPY FOR SUBSTANCE ABUSE, COGNITIV BEHAVIORAL (02/11/18) INDIV PSYCHOTHERAPY FOR SUBSTANCE ABUSE, PSYCHOEDUCATION (02/11/18) INDIVIDUAL PSYCHOTHERAPY, COGNITIVE-BEHAVIORAL (02/11/18) INDIVIDUAL PSYCHOTHERAPY, PSYCHOPHYSIOLOGICAL (02/11/18) INDIVIDUAL PSYCHOTHERAPY, SUPPORTIVE (02/11/18) <Ferdinand Nuñez - Last Filed: 10/11/18 15:44> Review Of Systems Constitutional: Negative for: Fever, Chills, Sweats, Weakness, Malaise Eyes: Negative for: Vision Change Cardiovascular: Negative for: Chest Pain, Palpitations Respiratory: Negative for: Cough, Shortness of Breath Gastrointestinal: Positive for: Abdominal Pain. Negative for: Nausea, Vomiting, Diarrhea, Constipation, Melena, Hematochezia, Hematemesis Genitourinary: Negative for: Dysuria, Frequency Musculoskeletal: Negative for: Neck Pain, Shoulder Pain, Back Pain, Leg Pain Skin: Negative for: Jaundice Neurological: Negative for: Weakness, Numbness Psych: Negative for: Anxiety, Depression <Eliel Quintana - Last Filed: 10/11/18 15:15> Physical Exam - Physical Exam Appears: Non-toxic, No Acute Distress Skin: Normal Color Head: Atraumatic, Normacephalic Eye(s): bilateral: PERRL, EOMI, Scleral Icterus Oral Mucosa: Moist Tongue: Normal Appearing Throat: Normal Neck: Normal ROM Cardiovascular: Other (tachycardic ) Respiratory: Normal Breath Sounds, No Rales, No Rhonchi, No Wheezing Gastrointestinal/Abdominal: Bowel Sounds, Tenderness (diffuse tenderness on superficial palpation ), Distention, Ascites Extremity: Normal ROM, No Tenderness, No Swelling Neurological/Psych: Oriented x3, Normal Speech, Normal Cognition, Normal Motor, Normal Sensation <Eliel Quintana - Last Filed: 10/11/18 15:15> ED Course And Treatment - Laboratory Results Result Diagrams: 10/11/18 14:32 10/11/18 14:32 ECG: Viewed By Me Interpretation Of ECG: HR 117, sinus tachycardia, no STEMI Rate From EC O2 Sat by Pulse Oximetry: 100 - Other Rad Chest Xray X-Ray: Read By Radiologist Interpretation: Findings: Prominent linear increased markings in the right midlung zone which may represent discoid atelectasis. Small nodular density at the left lung base which may represent vessel on end. Heart size within normal limits. Impression: Prominent linear increased markings in the right midlung zone which may represent discoid atelectasis. Small nodular density at the left lung base which may represent vessel on end. <Eliel Quintana - Last Filed: 10/11/18 15:15> - Laboratory Results Result Diagrams: 10/11/18 14:32 10/11/18 14:32 Lab Results: PT 14.9 SECONDS (9.7-12.2) H 10/11/18 14:32 INR 1.4 10/11/18 14:32 APTT 37.0 SECONDS (21-34) H 10/11/18 14:32 Total Bilirubin 3.7 mg/dL (0.2-1.3) H 10/11/18 14:32 AST 72 U/L (17-59) H D 10/11/18 14:32 ALT 23 U/L (21-72) 10/11/18 14:32 Alkaline Phosphatase 175 U/L (38-126) H 10/11/18 14:32 Total Protein 8.5 g/dL (6.3-8.3) H 10/11/18 14:32 Albumin 3.6 g/dL (3.5-5.0) 10/11/18 14:32 Globulin 4.9 gm/dL (2.2-3.9) H 10/11/18 14:32 Albumin/Globulin Ratio 0.7 (1.0-2.1) L 10/11/18 14:32 Lipase 247 U/L (23-300) 10/11/18 14:32 Urine Color Yellow (YELLOW) 10/11/18 14:32 Urine Clarity Clear (Clear) 10/11/18 14:32 Urine pH 7.0 (5.0-8.0) 10/11/18 14:32 Ur Specific [place] 1.006 (1.003-1.030) 10/11/18 14:32 Urine Protein Negative mg/dL (NEGATIVE) 10/11/18 14:32 Urine Glucose (UA) Normal mg/dL (Normal) 10/11/18 14:32 Urine Ketones Negative mg/dL (NEGATIVE) 10/11/18 14:32 Urine Blood Negative (NEGATIVE) 10/11/18 14:32 Urine Nitrate Negative (NEGATIVE) 10/11/18 14:32 Urine Bilirubin Negative (NEGATIVE) 10/11/18 14:32 Urine Urobilinogen Normal mg/dL (0.2-1.0) 10/11/18 14:32 Ur Leukocyte Esterase Neg Manish/uL (Negative) 10/11/18 14:32 Urine WBC (Auto) < 1 /hpf (0-5) 10/11/18 14:32 Urine RBC (Auto) < 1 /hpf (0-3) 10/11/18 14:32 Hyaline Casts 6-10 /lpf (0-2) H 10/11/18 14:32 Lab Interpretation: Normal ECG: Interpreted By Me ECG Rhythm: Sinus Tachycardia Reevaluation Time: 15:43 Reassessment Condition: Unchanged <Ferdinand Nuñez - Last Filed: 10/11/18 15:44> Medical Decision Making Medical Decision Makin37 year old male pmhx of alcohol liver failure, hep C, presenting to ED for abdominal distention and discomfort requesting abdominal paracentesis. Large abdominal ascites and distention on physical exam, history of noncompliant with diet and treatment. - EKG - CBC, CMP, Coags, lipase, ammonia - Chest Xray - U/A - Urine Drug Screen - IR consult -13:30 - Patient to be admitted for obs by Dr Abreu, IR Dr Padilla to perform paracentesis tomorrow. -14:39 - Patient to be admitted to hospitalist service, Patient follows [facility] ED and will continue to follow at clinic. Plan d/w Dr Joaquin Quintana, PGY-1 <Eliel Quintana - Last Filed: 10/11/18 15:15> Disposition <Eliel Quintana - Last Filed: 10/11/18 15:15> Doctor Will See Patient In The: Hospital Counseled Patient/Family Regarding: Studies Performed, Diagnosis - Disposition Disposition Time: 15:43 <Ferdinand Nuñez - Last Filed: 10/11/18 15:44> - Disposition Disposition: HOSPITALIZED Condition: GOOD - Clinical Impression Clinical Impression: Ascites due to alcoholic cirrhosis
--- NOTE | 2018-10-11 14:38 | RAD ---
Chest x-ray single frontal view HISTORY: Abdominal pain. COMPARISON: 09/27/2018 Findings: Prominent linear increased markings in the right midlung zone which may represent discoid atelectasis. Small nodular density at the left lung base which may represent vessel on end. Heart size within normal limits. Impression: Prominent linear increased markings in the right midlung zone which may represent discoid atelectasis. Small nodular density at the left lung base which may represent vessel on end.
[2018-10-11 14:44] LABS: BASO % 0.5 % (0.0-2.0); EOS # 0.1 K/uL (0.0-0.7); LYMPH # 1.4 K/uL (1.0-4.3); LYMPH % 15.6 % (20.0-40.0); MEAN CELL VOLUME 92.3 fL (80.0-94.0); MEAN CORPUSCULAR HEMOGLOBIN 31.9 pg (27.0-31.0); MEAN CORPUSCULAR HGB CONC 34.5 g/dL (33.0-37.0); MEAN PLATELET VOLUME 9.5 fL (7.2-11.7); MONO % 10.7 % (0.0-10.0); NEUT # 6.5 K/uL (1.8-7.0); NEUT % 72.2 % (50.0-75.0); RBC 4.39 Mil/uL (4.40-5.90)
[2018-10-11 14:53] LABS: URINE CLARITY Clear (Clear); URINE COLOR Yellow (YELLOW); URINE GLUCOSE (UA) NORMAL (Normal)
[2018-10-11 14:54] LABS: URINE BILIRUBIN NEGATIVE (NEGATIVE); URINE BLOOD NEGATIVE (NEGATIVE); URINE LEUKOCYTE ESTERASE NEG Leu/uL (Negative); URINE PROTEIN NEGATIVE (NEGATIVE); URINE UROBILINOGEN NORMAL mg/dL (0.2-1.0)
[2018-10-11 14:57] LABS: INR 1.4; PROTHROMBIN TIME 14.9 SECONDS (9.7-12.2)
[2018-10-11 15:03] LABS: ALB/GLOB RATIO 0.7 (1.0-2.1); ALBUMIN 3.6 g/dL (3.5-5.0); ALT/SGPT 23 U/L (21-72); AST/SGOT 72 U/L (17-59); BLOOD UREA NITROGEN 15 mg/dL (9-20); GFR NON-AFRICAN AMERICAN > 60; LIPASE 247 U/L (23-300)
--- NOTE | 2018-10-11 15:14 | CP.PCM.HP ---
<Thomas Gary - Last Filed: 10/11/18 16:45> History of Present Illness - History of Present Illness History of Present Illness: PGY-1 History and Physical [address] Kam Matthews Patient is a 37 year old male with a past medical history of cirrhosis, hepatitis C, cystic fibrosis, presents for increasing abdominal distention. Patient was recently admitted on 09/27/18 for similar symptoms and had p aracentesis done. Patient states abdominal distention started on 09/22/18. Distention has been worsening over past several days. Associated symptoms include abdominal pain with tenderness to palpation, and difficulty breathing. Patient routinely comes to [facility] for paracentesis, and is here requesting to have his ascites tapped. Patient denies diarrhea, constipation, chest pain, cough, dizziness, lightheadedness. Patient reports compliance with his medications. States he quit drinking one month ago. 12 point ROS reviewed and all negative except as per HPI PMHx: cirrhosis, hepatitis C, cystic fibrosis SurgHx: Paracentesis x4 FamHx: Sister- cervical cancer, lupus; Mother-lupus; paternal grandmother- throat cancer Allergies: NKDA Medications: Lactulose 15gm TID, spironolactone 25mg po bid, furosemide 20mg po bid, multivitamin 1 tab daily, and nicoderm SocHx: ETOH- quit 3 months ago; previously drank "15pints of vodka per day for 8-9 years"; Drugs- former ICDU (heroin) from age [age]. Tobacco- cut down to 2 cigarettes per day, previously smoked 2ppd [id number]. PMD: Dr. Fausitn Present on Admission - Present on Admission Any Indicators Present on Admission: No Past Patient History - Infectious Disease Hx of Infectious Diseases: None - Past Medical History & Family History Past Medical History?: Yes - Past Social History Smoking Status: Light Smoker < 10 Cigarettes Daily - CARDIAC Hx Hypertension: No - PULMONARY Hx Asthma: Yes - NEUROLOGICAL Hx Seizures: Yes (ETOH related) - HEENT Hx HEENT Problems: No - RENAL Hx Chronic Kidney Disease: No - ENDOCRINE/METABOLIC Hx Endocrine Disorders: No - HEMATOLOGICAL/ONCOLOGICAL Hx Human Immunodeficiency Virus (HIV): No - INTEGUMENTARY Hx Dermatological Problems: No - MUSCULOSKELETAL/RHEUMATOLOGICAL Hx Falls: No - GASTROINTESTINAL Hx Gastrointestinal Disorders: No - GENITOURINARY/GYNECOLOGICAL Hx Sexually Transmitted Disorders: No - PSYCHIATRIC Hx Bipolar Disorder: Yes Hx Schizophrenia: Yes Hx Substance Use: No - ANESTHESIA Hx Anesthesia: No (Pt denies) Meds Allergies/Adverse Reactions: Allergies Allergy/AdvReac Type Severity Reaction Status Date / Time No Known Allergies Allergy Verified 09/19/18 11:24 Physical Exam - Constitutional Appears: Non-toxic, No Acute Distress - Head Exam Head Exam: ATRAUMATIC, NORMOCEPHALIC - Eye Exam Eye Exam: EOMI - ENT Exam ENT Exam: Mucous Membranes Moist - Respiratory Exam Respiratory Exam: Clear to Auscultation Bilateral, NORMAL BREATHING PATTERN. absent: Rhonchi, Wheezes - Cardiovascular Exam Cardiovascular Exam: REGULAR RHYTHM, +S1, +S2 - GI/Abdominal Exam GI & Abdominal Exam: Distended, Firm, Tenderness. absent: Guarding, Rebound, Rigid - Extremities Exam Extremities exam: Positive for: normal inspection. Negative for: pedal edema, tenderness - Neurological Exam Neurological exam: Alert, CN II-XII Intact, Oriented x3 - Psychiatric Exam Psychiatric exam: Normal Affect, Normal Mood - Skin Skin Exam: Dry, Intact Results - Vital Signs Recent Vital Signs: Last Vital Signs Temp 98.4 F 10/11/18 13:06 Pulse 128 H 10/11/18 13:06 Resp 24 10/11/18 13:06 BP 132/95 H 10/11/18 13:06 Pulse Ox 100 10/11/18 14:45 - Labs Result Diagrams: 10/11/18 14:32 10/11/18 14:32 Labs: Laboratory Results - last 24 hr 10/11/18 10/11/18 10/11/18 14:32 14:32 14:32 WBC 9.0 RBC 4.39 L Hgb 14.0 Hct 40.5 MCV 92.3 MCH 31.9 H MCHC 34.5 RDW 14.0 Plt Count 210 MPV 9.5 Neut % (Auto) 72.2 Lymph % (Auto) 15.6 L [place] % (Auto) 10.7 H Eos % (Auto) 1.0 Baso % (Auto) 0.5 Neut # (Auto) 6.5 Lymph # (Auto) 1.4 [place] # (Auto) 1.0 H Eos # (Auto) 0.1 Baso # (Auto) 0.0 PT 14.9 H INR 1.4 APTT 37.0 H Sodium 133 Potassium 3.5 L Chloride 94 L Carbon Dioxide 29 Anion Gap 14 BUN 15 Creatinine 0.8 Est GFR ( Amer) > 60 Est GFR (Non-Af Amer) > 60 Random Glucose 134 H Calcium 9.0 Total Bilirubin 3.7 H AST 72 H D ALT 23 Alkaline Phosphatase 175 H Ammonia Total Protein 8.5 H Albumin 3.6 Globulin 4.9 H Albumin/Globulin Ratio 0.7 L Lipase 247 Urine Color Urine Clarity Urine pH Ur Specific [place] Urine Protein Urine Glucose (UA) Urine Ketones Urine Blood Urine Nitrate Urine Bilirubin Urine Urobilinogen Ur Leukocyte Esterase Urine WBC (Auto) Urine RBC (Auto) Hyaline Casts 10/11/18 10/11/18 14:32 14:32 WBC RBC Hgb Hct MCV MCH MCHC RDW Plt Count MPV Neut % (Auto) Lymph % (Auto) [place] % (Auto) Eos % (Auto) Baso % (Auto) Neut # (Auto) Lymph # (Auto) [place] # (Auto) Eos # (Auto) Baso # (Auto) PT INR APTT Sodium Potassium Chloride Carbon Dioxide Anion Gap BUN Creatinine Est GFR ( Amer) Est GFR (Non-Af Amer) Random Glucose Calcium Total Bilirubin AST ALT Alkaline Phosphatase Ammonia 21 D Total Protein Albumin Globulin Albumin/Globulin Ratio Lipase Urine Color Yellow Urine Clarity Clear Urine pH 7.0 Ur Specific [place] 1.006 Urine Protein Negative Urine Glucose (UA) Normal Urine Ketones Negative Urine Blood Negative Urine Nitrate Negative Urine Bilirubin Negative Urine Urobilinogen Normal Ur Leukocyte Esterase Neg Urine WBC (Auto) < 1 Urine RBC (Auto) < 1 Hyaline Casts 6-10 H Assessment & Plan - Assessment and Plan (Free Text) Assessment: Patient is a 37 year old male with a past medical history of cirrhosis, hepatitis C, and cystic fibrosis, who is admitted for ascites. Plan: Cirrhosis, Ascites - Hx of Hepatitis C - Child-Lugo score: 10 points ( Life Expectancy : 1-3 years, Abdominal surgery tangela-operative mortality: 82%) - MELD score: 22 (19.6% estimated 3-Month Mortality) - CXR 10/11: Prominent linear increased markiing in the R midlung may represent discoid atelectasis. Small nodular density at LL base may represent a vessel on end. - Continue home medications: Spironolactone 25mg PO daily, lactulose TID, furosemide 20mg po BID - Will not order Peritoneal fluid studies, as patient had studies done on recent admission 09/19/18 - IR, Dr. Padilla consulted for paracentesis - -NPO after MN Imaging from previous admission: * Chest/Abd/Pelv CT (09/11/18): Small pericardial effusion. Subcarinal lymph node measures approximately 16 mm in short axis. Additional scattered sub cm mediastinal and axillary adenopathy. Please note evaluation for adenopathy, in particular hilar adenopathy, limited due to absence of IV contrast. Extensive subpleural bulla predominantly in peripheral and perifissural distribution. 4 mm hepatic dome calcification, likely granuloma. Hepatomegaly. Nodular hepatic contour may be seen in setting of cirrhosis. Region of ill-defined low-attenuation hypodensity seen within the inferior right hepatic lobe suspicious for neoplasm are not adequately evaluated on this noncontrast study and best seen on CT of the abdomen and pelvis with contrast performed 09/05/18. Splenomegaly. Contracted gallbladder limits evaluation. Gallbladder wall thickening/pericholecystic edema. Mild pancreatic prominence possibly edematous. Correlate clinically for possibility of pancreatitis including amylase and lipase levels. Too small to characterize exophytic left renal hypodensity measures approximately 5 mm. Extensive abdominal and pelvic ascites. * Liver CT 09/24/18: No hepatic neoplasm. Hepatic cirrhosis. Mild splenomegaly. Extensive ascites. Mild left upper quadrant varices. Nonspecific mural thickening of multiple loops of jejunum. This may be seen in association with hypoalbuminemia but is nonspecific. Additional nonacute findings. See full note. Alcoholic hepatitis, chronic - Maddrey discriminant function score: 34.2 (patient may benefit from glucocorticoid therapy) - AST/ALT: 72/23 - Avoid hepatotoxic agents - Continue to monitor Elevated Bilirubin, acute - Total bilirubin at admission 3.7 - Continue to monitor History of alcohol abuse, chronic - Patient states 3 months of sobriety - Monitor signs of withdrawal Prophylaxis - DVT: hold chemical anticoagulation; SCDs - GI: not indicated at this time Assessment and plan d/w Dr. Kam Gary, PGY-1 <Deshaun Matthews - Last Filed: 10/11/18 19:05> Results - Vital Signs Recent Vital Signs: Last Vital Signs Temp 98.9 F 10/11/18 16:21 Pulse 114 H 10/11/18 16:21 Resp 20 10/11/18 16:21 BP 101/76 10/11/18 17:45 Pulse Ox 100 10/11/18 16:21 - Labs Result Diagrams: 10/11/18 14:32 10/11/18 14:32 Labs: Laboratory Results - last 24 hr 10/11/18 10/11/18 10/11/18 14:32 14:32 14:32 WBC 9.0 RBC 4.39 L Hgb 14.0 Hct 40.5 MCV 92.3 MCH 31.9 H MCHC 34.5 RDW 14.0 Plt Count 210 MPV 9.5 Neut % (Auto) 72.2 Lymph % (Auto) 15.6 L [place] % (Auto) 10.7 H Eos % (Auto) 1.0 Baso % (Auto) 0.5 Neut # (Auto) 6.5 Lymph # (Auto) 1.4 [place] # (Auto) 1.0 H Eos # (Auto) 0.1 Baso # (Auto) 0.0 PT 14.9 H INR 1.4 APTT 37.0 H Sodium 133 Potassium 3.5 L Chloride 94 L Carbon Dioxide 29 Anion Gap 14 BUN 15 Creatinine 0.8 Est GFR ( Amer) > 60 Est GFR (Non-Af Amer) > 60 Random Glucose 134 H Calcium 9.0 Total Bilirubin 3.7 H AST 72 H D ALT 23 Alkaline Phosphatase 175 H Ammonia Total Protein 8.5 H Albumin 3.6 Globulin 4.9 H Albumin/Globulin Ratio 0.7 L Lipase 247 Urine Color Urine Clarity Urine pH Ur Specific [place] Urine Protein Urine Glucose (UA) Urine Ketones Urine Blood Urine Nitrate Urine Bilirubin Urine Urobilinogen Ur Leukocyte Esterase Urine WBC (Auto) Urine RBC (Auto) Hyaline Casts Urine Opiates Screen Urine Methadone Screen Ur Barbiturates Screen Ur Phencyclidine Scrn Ur Amphetamines Screen U Benzodiazepines Scrn U Oth Cocaine Metabols U Cannabinoids Screen 10/11/18 10/11/18 10/11/18 14:32 14:32 14:32 WBC RBC Hgb Hct MCV MCH MCHC RDW Plt Count MPV Neut % (Auto) Lymph % (Auto) [place] % (Auto) Eos % (Auto) Baso % (Auto) Neut # (Auto) Lymph # (Auto) [place] # (Auto) Eos # (Auto) Baso # (Auto) PT INR APTT Sodium Potassium Chloride Carbon Dioxide Anion Gap BUN Creatinine Est GFR ( Amer) Est GFR (Non-Af Amer) Random Glucose Calcium Total Bilirubin AST ALT Alkaline Phosphatase Ammonia 21 D Total Protein Albumin Globulin Albumin/Globulin Ratio Lipase Urine Color Yellow Urine Clarity Clear Urine pH 7.0 Ur Specific [place] 1.006 Urine Protein Negative Urine Glucose (UA) Normal Urine Ketones Negative Urine Blood Negative Urine Nitrate Negative Urine Bilirubin Negative Urine Urobilinogen Normal Ur Leukocyte Esterase Neg Urine WBC (Auto) < 1 Urine RBC (Auto) < 1 Hyaline Casts 6-10 H Urine Opiates Screen Negative Urine Methadone Screen Negative Ur Barbiturates Screen Negative Ur Phencyclidine Scrn Negative Ur Amphetamines Screen Negative U Benzodiazepines Scrn Negative U Oth Cocaine Metabols Negative U Cannabinoids Screen Negative Attending/Attestation - Attestation I have personally seen and examined this patient.: Yes I have fully participated in the care of the patient.: Yes I have reviewed all pertinent clinical information: Yes Notes (Text): 10/11/18 19:03 Patient was seen and examined after he arrived in bed 361 A. Please note that Morphine 1 gm IV Q6H PRN Severe Pain has been ordered. For Paracentesis with IR Dr. Padilla on 10/12/18 and afterwards will be discharged to home. Patient explained that he is being followed by an unspecified GI specialist with whom he has an appointment this coming Monday. Deshaun Matthews D.O.
[2018-10-11 15:16] VITALS: RESP 20
[2018-10-11 15:20] LABS: BARBITURATES, UR NEGATIVE (NEGATIVE); BENZODIAZEPINES, UR NEGATIVE (NEGATIVE); OPIATES, UR NEGATIVE (NEGATIVE); PHENCYCLIDINE, UR NEGATIVE (NEGATIVE)
[2018-10-11] MEDS ORDERED: Potassium Chloride 20 mEq ER Tab PO STA (23:07)
--- NOTE | 2018-10-12 07:21 | CP.PCM.DIS ---
<Thomas Gary - Last Filed: 10/12/18 18:50> Provider - Provider Date of Admission: 10/11/18 13:38 Attending physician: Fransisco Nunez DO Consults: 10/11/18 13:47 Radiology Consult Routine Comment: Consulting Provider: Raji Padilla Consulting Physician: Raji Padilla Reason for Consult: abdominal ascites Time Spent in preparation of Discharge (in minutes): 45 Diagnosis - Discharge Diagnosis (1) Ascites Status: Chronic (2) Cirrhosis Status: Chronic Hospital Course - Lab Results Lab Results: Most Recent Lab Values WBC 9.0 K/uL (4.8-10.8) 10/11/18 14:32 RBC 4.39 Mil/uL (4.40-5.90) L 10/11/18 14:32 Hgb 14.0 g/dL (12.0-18.0) 10/11/18 14:32 Hct 40.5 % (35.0-51.0) 10/11/18 14:32 MCV 92.3 fL (80.0-94.0) 10/11/18 14:32 MCH 31.9 pg (27.0-31.0) H 10/11/18 14:32 MCHC 34.5 g/dL (33.0-37.0) 10/11/18 14:32 RDW 14.0 % (11.5-14.5) 10/11/18 14:32 Plt Count 210 K/uL (130-400) 10/11/18 14:32 MPV 9.5 fL (7.2-11.7) 10/11/18 14:32 Neut % (Auto) 72.2 % (50.0-75.0) 10/11/18 14:32 Lymph % (Auto) 15.6 % (20.0-40.0) L 10/11/18 14:32 [place] % (Auto) 10.7 % (0.0-10.0) H 10/11/18 14:32 Eos % (Auto) 1.0 % (0.0-4.0) 10/11/18 14:32 Baso % (Auto) 0.5 % (0.0-2.0) 10/11/18 14:32 Neut # (Auto) 6.5 K/uL (1.8-7.0) 10/11/18 14:32 Lymph # (Auto) 1.4 K/uL (1.0-4.3) 10/11/18 14:32 [place] # (Auto) 1.0 K/uL (0.0-0.8) H 10/11/18 14:32 Eos # (Auto) 0.1 K/uL (0.0-0.7) 10/11/18 14:32 Baso # (Auto) 0.0 K/uL (0.0-0.2) 10/11/18 14:32 PT 14.9 SECONDS (9.7-12.2) H 10/11/18 14:32 INR 1.4 10/11/18 14:32 APTT 37.0 SECONDS (21-34) H 10/11/18 14:32 Sodium 133 mmol/L (132-148) 10/11/18 14:32 Potassium 3.5 mmol/L (3.6-5.2) L 10/11/18 14:32 Chloride 94 mmol/L (98-107) L 10/11/18 14:32 Carbon Dioxide 29 mmol/L (22-30) 10/11/18 14:32 Anion Gap 14 (10-20) 10/11/18 14:32 BUN 15 mg/dL (9-20) 10/11/18 14:32 Creatinine 0.8 mg/dL (0.8-1.5) 10/11/18 14:32 Est GFR ( Amer) > 60 10/11/18 14:32 Est GFR (Non-Af Amer) > 60 10/11/18 14:32 Random Glucose 134 mg/dL (75-110) H 10/11/18 14:32 Calcium 9.0 mg/dl (8.6-10.4) 10/11/18 14:32 Total Bilirubin 3.7 mg/dL (0.2-1.3) H 10/11/18 14:32 AST 72 U/L (17-59) H D 10/11/18 14:32 ALT 23 U/L (21-72) 10/11/18 14:32 Alkaline Phosphatase 175 U/L (38-126) H 10/11/18 14:32 Ammonia 21 umol/L (9-33) D 10/11/18 14:32 Total Protein 8.5 g/dL (6.3-8.3) H 10/11/18 14:32 Albumin 3.6 g/dL (3.5-5.0) 10/11/18 14:32 Globulin 4.9 gm/dL (2.2-3.9) H 10/11/18 14:32 Albumin/Globulin Ratio 0.7 (1.0-2.1) L 10/11/18 14:32 Lipase 247 U/L (23-300) 10/11/18 14:32 Urine Color Yellow (YELLOW) 10/11/18 14:32 Urine Clarity Clear (Clear) 10/11/18 14:32 Urine pH 7.0 (5.0-8.0) 10/11/18 14:32 Ur Specific [place] 1.006 (1.003-1.030) 10/11/18 14:32 Urine Protein Negative mg/dL (NEGATIVE) 10/11/18 14:32 Urine Glucose (UA) Normal mg/dL (Normal) 10/11/18 14:32 Urine Ketones Negative mg/dL (NEGATIVE) 10/11/18 14:32 Urine Blood Negative (NEGATIVE) 10/11/18 14:32 Urine Nitrate Negative (NEGATIVE) 10/11/18 14:32 Urine Bilirubin Negative (NEGATIVE) 10/11/18 14:32 Urine Urobilinogen Normal mg/dL (0.2-1.0) 10/11/18 14:32 Ur Leukocyte Esterase Neg Manish/uL (Negative) 10/11/18 14:32 Urine WBC (Auto) < 1 /hpf (0-5) 10/11/18 14:32 Urine RBC (Auto) < 1 /hpf (0-3) 10/11/18 14:32 Hyaline Casts 6-10 /lpf (0-2) H 10/11/18 14:32 Urine Opiates Screen Negative (NEGATIVE) 10/11/18 14:32 Urine Methadone Screen Negative (NEGATIVE) 10/11/18 14:32 Ur Barbiturates Screen Negative (NEGATIVE) 10/11/18 14:32 Ur Phencyclidine Scrn Negative (NEGATIVE) 10/11/18 14:32 Ur Amphetamines Screen Negative (NEGATIVE) 10/11/18 14:32 U Benzodiazepines Scrn Negative (NEGATIVE) 10/11/18 14:32 U Oth Cocaine Metabols Negative (NEGATIVE) 10/11/18 14:32 U Cannabinoids Screen Negative (NEGATIVE) 10/11/18 14:32 - Hospital Course Hospital Course: HPI Patient is a 37 year old male with a past medical history of cirrhosis, hepatitis C, cystic fibrosis, presents for increasing abdominal distention. Patient was recently admitted on 09/27/18 for similar symptoms and had paracentesis done. Patient states abdominal distention started on 09/22/18. Distention has been worsening over past several days. Associated symptoms include abdominal pain with tenderness to palpation, and difficulty breathing. Patient routinely comes to [facility] for paracentesis, and is here requesting to have his ascites tapped. Patient denies diarrhea, constipation, chest pain, cough, dizziness, lightheadedness. Patient reports compliance with his medications. States he quit drinking one month ago. Hospital Course Patient with history severe alcoholic liver cirrhosis was hospitalized with worsened abdominal ascites. Patient had been discharge two weeks prior for cirrhosis/ascites requiring parecentesis. IR was consulted (Dr. Loera) paracentesis of his ascites. Patiient was admitted overnight for observation and discharged the following day following IR drainage of the fluid. Patient also received a dose of IV albumin following paracentesis. No fluid lab analysis was sent as patient just had recent paracentesis with lab analysis. Please note this is only a summary of this hospital course. For details please refer to complete medical records. Discharge Exam - Head Exam Head Exam: ATRAUMATIC, NORMOCEPHALIC - Eye Exam Eye Exam: EOMI, Normal appearance - Respiratory Exam Respiratory Exam: Clear to PA & Lateral, UNREMARKABLE. absent: Rales, Rhonchi - Cardiovascular Exam Cardiovascular Exam: REGULAR RHYTHM, +S1, +S2 - GI/Abdominal Exam GI & Abdominal Exam: Distended, Firm, Tenderness Additional comments: chronic abdominal changes 2/2 cirrhosis/ascites. Abd distention reduced s/p paracentesis - Extremities Exam Extremities exam: normal inspection - Neurological Exam Neurological exam: Alert, CN II-XII Intact, Oriented x3 - Psychiatric Exam Psychiatric exam: Normal Affect, Normal Mood - Skin Skin Exam: Dry, Intact Discharge Plan - Follow Up Plan Condition: GOOD Disposition: HOME/ ROUTINE Instructions: Alcohol Abuse and Alcoholism (DC), Fluid in the Belly (Ascites) (DC) Additional Instructions: Patient has been cleared for discharge per Dr. Matthews Please continue to take your home medications as prescribed (no changes have been made to your home medications) Please follow up with your primary care doctor within 7-10 days of discharge Please return to ED if symptoms recur or worsen. <Deshaun Matthews - Last Filed: 10/16/18 12:42> Provider - Provider Date of Admission: 10/11/18 13:38 Attending physician: Fransisco Nunez DO Consults: 10/11/18 13:47 Radiology Consult Routine Comment: Consulting Provider: Raji Padilla Consulting Physician: Raji Padilla Reason for Consult: abdominal ascites Hospital Course - Lab Results Lab Results: Most Recent Lab Values WBC 8.3 K/uL (4.8-10.8) 10/12/18 08:14 RBC 4.01 Mil/uL (4.40-5.90) L 10/12/18 08:14 Hgb 12.9 g/dL (12.0-18.0) 10/12/18 08:14 Hct 36.6 % (35.0-51.0) 10/12/18 08:14 MCV 91.5 fL (80.0-94.0) 10/12/18 08:14 MCH 32.1 pg (27.0-31.0) H 10/12/18 08:14 MCHC 35.1 g/dL (33.0-37.0) 10/12/18 08:14 RDW 13.9 % (11.5-14.5) 10/12/18 08:14 Plt Count 175 K/uL (130-400) 10/12/18 08:14 MPV 8.9 fL (7.2-11.7) 10/12/18 08:14 Neut % (Auto) 61.6 % (50.0-75.0) 10/12/18 08:14 Lymph % (Auto) 22.6 % (20.0-40.0) 10/12/18 08:14 [place] % (Auto) 12.7 % (0.0-10.0) H 10/12/18 08:14 Eos % (Auto) 2.4 % (0.0-4.0) 10/12/18 08:14 Baso % (Auto) 0.7 % (0.0-2.0) 10/12/18 08:14 Neut # (Auto) 5.1 K/uL (1.8-7.0) 10/12/18 08:14 Lymph # (Auto) 1.9 K/uL (1.0-4.3) 10/12/18 08:14 [place] # (Auto) 1.1 K/uL (0.0-0.8) H 10/12/18 08:14 Eos # (Auto) 0.2 K/uL (0.0-0.7) 10/12/18 08:14 Baso # (Auto) 0.1 K/uL (0.0-0.2) 10/12/18 08:14 PT 14.9 SECONDS (9.7-12.2) H 10/11/18 14:32 INR 1.4 10/11/18 14:32 APTT 37.0 SECONDS (21-34) H 10/11/18 14:32 Sodium 131 mmol/L (132-148) L 10/12/18 08:14 Potassium 3.8 mmol/L (3.6-5.2) 10/12/18 08:14 Chloride 93 mmol/L (98-107) L 10/12/18 08:14 Carbon Dioxide 30 mmol/L (22-30) 10/12/18 08:14 Anion Gap 12 (10-20) 10/12/18 08:14 BUN 16 mg/dL (9-20) 10/12/18 08:14 Creatinine 0.9 mg/dL (0.8-1.5) 10/12/18 08:14 Est GFR ( Amer) > 60 10/12/18 08:14 Est GFR (Non-Af Amer) > 60 10/12/18 08:14 Random Glucose 102 mg/dL (75-110) D 10/12/18 08:14 Calcium 8.8 mg/dl (8.6-10.4) 10/12/18 08:14 Phosphorus 4.4 mg/dL (2.5-4.5) 10/12/18 08:14 Magnesium 1.5 mg/dL (1.6-2.3) L 10/12/18 08:14 Total Bilirubin 2.9 mg/dL (0.2-1.3) H 10/12/18 08:14 AST 62 U/L (17-59) H 10/12/18 08:14 ALT 33 U/L (21-72) 10/12/18 08:14 Alkaline Phosphatase 188 U/L (38-126) H 10/12/18 08:14 Ammonia 21 umol/L (9-33) D 10/11/18 14:32 Total Protein 7.6 g/dL (6.3-8.3) 10/12/18 08:14 Albumin 3.1 g/dL (3.5-5.0) L 10/12/18 08:14 Globulin 4.5 gm/dL (2.2-3.9) H 10/12/18 08:14 Albumin/Globulin Ratio 0.7 (1.0-2.1) L 10/12/18 08:14 Lipase 247 U/L (23-300) 10/11/18 14:32 Urine Color Yellow (YELLOW) 10/11/18 14:32 Urine Clarity Clear (Clear) 10/11/18 14:32 Urine pH 7.0 (5.0-8.0) 10/11/18 14:32 Ur Specific [place] 1.006 (1.003-1.030) 10/11/18 14:32 Urine Protein Negative mg/dL (NEGATIVE) 10/11/18 14:32 Urine Glucose (UA) Normal mg/dL (Normal) 10/11/18 14:32 Urine Ketones Negative mg/dL (NEGATIVE) 10/11/18 14:32 Urine Blood Negative (NEGATIVE) 10/11/18 14:32 Urine Nitrate Negative (NEGATIVE) 10/11/18 14:32 Urine Bilirubin Negative (NEGATIVE) 10/11/18 14:32 Urine Urobilinogen Normal mg/dL (0.2-1.0) 10/11/18 14:32 Ur Leukocyte Esterase Neg Manish/uL (Negative) 10/11/18 14:32 Urine WBC (Auto) < 1 /hpf (0-5) 10/11/18 14:32 Urine RBC (Auto) < 1 /hpf (0-3) 10/11/18 14:32 Hyaline Casts 6-10 /lpf (0-2) H 10/11/18 14:32 Urine Opiates Screen Negative (NEGATIVE) 10/11/18 14:32 Urine Methadone Screen Negative (NEGATIVE) 10/11/18 14:32 Ur Barbiturates Screen Negative (NEGATIVE) 10/11/18 14:32 Ur Phencyclidine Scrn Negative (NEGATIVE) 10/11/18 14:32 Ur Amphetamines Screen Negative (NEGATIVE) 10/11/18 14:32 U Benzodiazepines Scrn Negative (NEGATIVE) 10/11/18 14:32 U Oth Cocaine Metabols Negative (NEGATIVE) 10/11/18 14:32 U Cannabinoids Screen Negative (NEGATIVE) 10/11/18 14:32 Attending/Attestation - Attestation I have personally seen and examined this patient.: Yes I have fully participated in the care of the patient.: Yes I have reviewed all pertinent clinical information, including history, physical exam and plan: Yes Notes (Text): 10/16/18 12:41 This is a late entry. Care of this patient (and Discharge Instructions) was gone over in detail with resident Dr. Diane Gary. Deshaun Matthews D.O.
[2018-10-12 08:20] LABS: BASO # 0.1 K/uL (0.0-0.2); BASO % 0.7 % (0.0-2.0); EOS # 0.2 K/uL (0.0-0.7); EOS % 2.4 % (0.0-4.0); HEMOGLOBIN 12.9 g/dL (12.0-18.0); LYMPH # 1.9 K/uL (1.0-4.3); LYMPH % 22.6 % (20.0-40.0); MEAN CELL VOLUME 91.5 fL (80.0-94.0); MEAN CORPUSCULAR HEMOGLOBIN 32.1 pg (27.0-31.0); MEAN CORPUSCULAR HGB CONC 35.1 g/dL (33.0-37.0); MEAN PLATELET VOLUME 8.9 fL (7.2-11.7); MONO # 1.1 K/uL (0.0-0.8); MONO % 12.7 % (0.0-10.0); NEUT # 5.1 K/uL (1.8-7.0); NEUT % 61.6 % (50.0-75.0); RBC 4.01 Mil/uL (4.40-5.90); RED CELL DISTRIBUTION WIDTH 13.9 % (11.5-14.5); WHITE BLOOD COUNT 8.3 K/uL (4.8-10.8)
[2018-10-12 08:35] LABS: ALB/GLOB RATIO 0.7 (1.0-2.1); ALBUMIN 3.1 g/dL (3.5-5.0); ALT/SGPT 33 U/L (21-72); AST/SGOT 62 U/L (17-59); BLOOD UREA NITROGEN 16 mg/dL (9-20); CALCIUM 8.8 mg/dl (8.6-10.4); GFR NON-AFRICAN AMERICAN > 60
[2018-10-12] MEDS ORDERED: Lidocaine 2% MPF (5 ml) Inj ONE (08:55)
[2018-10-12] MEDS ORDERED: Magnesium Sulfate 1 gm in D5W 1 GM/100 ML BAG IVPB ONE (10:00)
[2018-10-12] MEDS ORDERED: Enoxaparin 30 mg Syringe SC SCH (10:00)
[2018-10-12] MEDS ORDERED: Multivitamin With Minerals Tab PO SCH (10:00)
--- NOTE | 2018-10-12 12:15 | US ---
Date of Procedure: 10/12/2018 PROCEDURE: Ultrasound-guided paracentesis, CPT 22117 Medications: 7 cc 1% Lidocaine HISTORY: Ascites, abdominal pain, cirrhosis TECHNIQUE: Following informed consent , the patient was placed supine on the stretcher and the site was marked. A limited abdominal ultrasound was performed that showed a large amount of intra-abdominal fluid. Procedural time out was called and the Pt's abdomen was marked and prepped and draped in the usual sterile fashion. Ultrasound-guided large volume paracentesis performed. A total of 4 liters of straw colored fluid was removed without complication. IMPRESSION: Ultrasound-guided large volume paracentesis.
--- NOTE | 2018-10-12 12:43 | PCM.SURG1 ---
Surgeon's Initial Post Op Note - Surgeon's Notes Surgeon: Raji Padilla MD Fats And Oils Loader: NONE Type of Anesthesia: Local Pre-Operative Diagnosis: Ascites, cirrhosis Operative Findings: US shows a moderate amount of ascites Post-Operative Diagnosis: Ascites, cirrhosis Operation Performed: US guided paracentesis Specimen/Specimens Removed: 4 liters of straw colored fluid Estimated Blood Loss: EBL {In ML}: 0 Blood Products Given: N/A Drains Used: No Drains Post-Op Condition: Fair Date of Surgery/Procedure: 10/12/18 Time of Surgery/Procedure: 09:30
--- NOTE | 2018-10-12 14:05 | CARD ---
APPROVED REPORT Date of service: 10/11/2018 EKG Measurement Heart [id number] <Conclusion> Sinus tachycardia Septal infarct, age undetermined Abnormal ECG
[2018-10-12 16:06] VITALS: BP 105/71; PULSE 98; TEMP 99; O2SAT 97
[2018-10-13] MEDS ORDERED: Pneumococcal 23-Valent Vaccine IM ONE (10:00)
== END 2018-10-12 18:31 | disposition home or self-care (01) ==
LOC: C.ER 12:32 → C.9E 13:38 → C.3T 13:56
PROVIDERS: ADMIT Hospitalist; ATTEND Hospitalist
DX: K70.31 Alcoholic cirrhosis of liver with ascites (principal); B19.20 Unspecified viral hepatitis C without hepatic coma; E84.9 Cystic fibrosis, unspecified; Z59.0 Homelessness; F20.9 Schizophrenia, unspecified; J45.909 Unspecified asthma, uncomplicated; F31.9 Bipolar disorder, unspecified; F17.210 Nicotine dependence, cigarettes, uncomplicated; R00.0 Tachycardia, unspecified; R10.9 Unspecified abdominal pain
CPT/HCPCS: 36415; 49083; 71045; 80053; 80324; 80345; 80346; 80349; 80353; 80358; 80361; 81001; 82140; 83690; 83735; 83992; 84100; 85025; 85610; 85730; 93005; 99285; G0378; J2270; J3475